=== PATIENT | male | born 1975 | race Caucasian/White ===

== ENCOUNTER 2017-09-23 06:35 | Inpatient (IN) ==
[2017-09-23] MEDS ORDERED: cefOXitin 2,000 MG in Water for inj. (sterile) 20 ML 10 ML IVP ONE (06:57)
--- NOTE | 2017-09-23 06:58 | Anesthesia Evaluation PreOp ---
Date of Encounter: 09/23/17 Time of Encounter: 07:08 - Past History Planned Operation: robo colon resection, a-port placement Cardiac History: HTN Pulmonary History: Denies Any Significant HX PLACER MINER History: Denies Any Significant HX Other Medical History: Other (psoriasis, colon cancer) Anesthesia History: No Prior Anesthetic Complications, Past Anesthesia (tonsils , c-scope, rcr x 3) Alcohol Use: occasionally Drug use: none Medications and Allergies Ferrous Sulfate [Iron] 325 mg PO DAILY 09/16/17 [History] Metoprolol Tartrate [Metoprolol Tartrate] 100 mg PO BID 09/16/17 [History] Polyethylene Glycol 3350 [MiraLAX bowel prep] 17 gm PO DAILY 09/16/17 [History] 3 Allergy/AdvReac Type Severity Reaction Status Date / Time No Known Allergies Allergy Verified 09/21/17 09:10 - Meds/Allergy Pre-op Review Medications Reviewed: Yes Allergies Reviewed: Yes Beta Blockers on Current Med List: Yes If Beta Blockers taken, Date/Time (Last Dose taken): 09-21-17 Anesthesia Results - Labs Laboratory Tests 08/16/17 09/21/17 09/21/17 10:40 09:40 09:40 Hgb 10.1 L Hct 36.5 L Plt Count 428 H Sodium 140 Potassium 4.2 BUN 8 Creatinine 0.87 - Imaging EKG: report reviewed (SINUS BRADYCARDIA MODERATE INTRAVENTRICULAR CONDUCTION DELAY VOLTAGE CRITERIA FOR LVH) Anesthesia Exam Selected Entries 09/23/17 06:54 Temperature 97.9 F Pulse Rate 76 Respiratory Rate 18 Blood Pressure 141/92 O2 Sat by Pulse Oximetry 98 Weight: 141kg BMI 41 NPO (# of Hours): 8 - HEENT Pupil (Motor): EOMI Mallampati: III Teeth: Normal Oral Opening: Greater than 3 - PLACER MINER LOC: Oriented PLACER MINER Motor: Normal RUE, Normal LUE, Normal RLE, Normal LLE, Normal Face PLACER MINER Sensory: Normal: RUE, LUE, RLE, LLE, Face - Cardiac Rhythm: Regular Murmur: None - Pulmonary Breath Sounds: bilateral Clear Respiratory Effort: Symmetrical Anesthesia Assess/Plan ASA Score: 3 Modified Lissa Scale for Level of Consciousness: Cooperative, oriented, and tranquil Anesthetic Plan: General Monitoring Plan: Standard Monitors Recovery Plan: PACU (agrees to GA)
[2017-09-23] MEDS ORDERED: Lidocaine 1% 20 ML MDV ONE (07:13)
[2017-09-23] MEDS ORDERED: Heparin 1,000 UNITS/500 mL 500 ML ONE (07:13)
[2017-09-23] MEDS ORDERED: Ondansetron 4 MG/2 ML VIAL ONE (07:24)
[2017-09-23] MEDS ORDERED: Lidocaine -MPF 2% 2 ML VIAL ONE (07:24)
[2017-09-23] MEDS ORDERED: *HR* Propofol 200 MG/20 ML VIAL IVP ONE ×2 (07:24→08:32)
[2017-09-23] MEDS ORDERED: *HR* Midazolam HCl 2 MG/2 ML VIAL ONE (07:24)
[2017-09-23] MEDS ORDERED: *HR* FentaNYL (PF) 100 MCG/2 ML VIAL ONE (07:24)
[2017-09-23] MEDS ORDERED: Ketorolac 30 MG/ML VIAL ONE (07:24)
[2017-09-23] MEDS ORDERED: Dexamethasone 4 MG/ML VIAL ONE (07:24)
[2017-09-23] MEDS ORDERED: *HR* Rocuronium Bromide 50 MG/5 ML VIAL ONE (07:24)
[2017-09-23] MEDS ORDERED: *HR* Succinylcholine 200 MG/10 ML VIAL IVP ONE (07:24)
--- NOTE | 2017-09-23 08:06 | History & Physical Report ---
Date of Encounter: 09/23/17 Time of Encounter: 08:05 24 Hour HP Update - Instructions Instructions: If the History and Physical is less than 30 days old and was completed prior to A.M. admission and or procedure and has NOT been updated on calendar day of procedure please complete this update prior to performing procedure. - Update Patient reports changes in Medical Condition: No Changes in examination, assessment, or condition: No Changes in Medication: No Preop tests/diagnostics Reviewed: Yes Surgery Remains Indicated: Yes Consent for Planned Operative Procedure(s) Verified: Yes - Pre-Operative Checklist Preoperative Checklist Indicated: Yes Prophylactic Antibiotic Ordered: Yes Home Medications Include Beta Melissa: Yes Beta Melissa Taken Today (Day of Surgery): Yes
[2017-09-23] MEDS ORDERED: Lidocaine -MPF 4% 5 ML AMPUL ONE (08:17)
[2017-09-23] MEDS ORDERED: Neostigmine Methylsulfate 3 MG/3 ML SYRINGE ONE (10:25)
[2017-09-23] MEDS ORDERED: *HR* Metoprolol 5 MG/5 ML VIAL IVP ONE (11:12)
[2017-09-23] MEDS ORDERED: *HR* Morphine 10 MG/ML VIAL ONE (11:26)
[2017-09-23] MEDS ORDERED: Naloxone 0.4 MG/ML INJ IVP PRN (11:31)
[2017-09-23] MEDS ORDERED: *HR* FentaNYL PATCH 50 MCG PATCH TD SCH (11:45)
[2017-09-23] MEDS: *HR* HYDROmorphone (PF) 1 MG/ML SYRINGE IVP SCH (12:07)
--- NOTE | 2017-09-23 12:30 | Anesthesia Evaluation Post Op ---
Date of Encounter: 09/23/17 Time of Encounter: 12:29 - Vital Signs Vital Signs: Vital Signs/O2 Sat, Most Current Temp Pulse Resp BP Pulse Ox 98.8 F 83 16 116/99 97 09/23/17 12:05 09/23/17 12:15 09/23/17 12:15 09/23/17 12:15 09/23/17 12:15 - Lungs Lungs: Clear Ascult./Percussion - Airway Airway: Non-obstructed - Cardiovascular Regular Rate - Mental Status Mental Status: Alert & Oriented, Answers Appropriately - Pain Pain Scale: 0 Pain Scale used: Numeric (1 - 10) - Nausea Vomiting Nausea Vomiting: Not Present - Hydration Hydration: Ice chips, Has not voided - Discharge PostOp Status: Transfer Patient to floor
[2017-09-23] MEDS: OXYCODONE Oral CONC 10 MG/0.5 ML ORAL.SYG SL PRN (13:51)
[2017-09-23] MEDS: Plasma-Lyte A (PH 7.4) 1,000 ML IVC SCH (17:35)
[2017-09-23] MEDS: Ketorolac 15 MG/ML VIAL IVP SCH ×2 (17:36)
[2017-09-23] MEDS: *HR* Heparin 5,000 UNIT/ML VIAL SQ SCH (17:37)
[2017-09-23] MEDS: 0.9 % Sodium Chloride 1,000 ML IVC SCH (17:37)
[2017-09-24] MEDS: Ketorolac 15 MG/ML VIAL IVP SCH ×4 (00:25→17:42)
[2017-09-24] MEDS: *HR* Heparin 5,000 UNIT/ML VIAL SQ SCH ×2 (06:56→17:43)
[2017-09-24] MEDS: 0.9 % Sodium Chloride 1,000 ML IVC SCH ×2 (06:56→17:44)
[2017-09-24 07:05] LABS: BUN/Creatinine Ratio 9 (6-26); Blood Urea Nitrogen 7 mg/dL (6-20); Calcium 9.2 mg/dL (8.6-10.3); Carbon Dioxide 26 mEq/L (23-29); Chloride 109 mEq/L (98-107); Glucose 122 mg/dL (70-105); Osmolality,Calculated 289 (280-300); Potassium 4.1 mEq/L (3.5-5.1); Sodium 140 mEq/L (136-145); eGFR For African Americans > 60 (> 60); eGFR For Non-African Americans > 60 (> 60)
[2017-09-24 07:46] LABS: Burr Cells 2+ (Not Present)
[2017-09-24 07:47] LABS: Anisocytosis 1+ (Not Present); Hypochromasia Present (Not Present); Poikilocytosis 2+ (Not Present)
[2017-09-24 07:48] LABS: Acanthocytes 1+ (Not Present); Ovalocytes 1+ (Not Present); Platelet Estimate Normal (Normal); Target Cells 1+ (Not Present)
[2017-09-24 07:54] LABS: Hematocrit 32.2 % (37.5-50.1); Hemoglobin 9.3 g/dL (12.9-16.9); Lymphocytes # 1.6 K/mcL (0.6-4.6); Mean Corpuscular HGB Conc 28.9 g/dL (31.6-35.5); Mean Corpuscular Hemoglobin 20.6 pg (28.0-33.3); Mean Corpuscular Volume 71.2 fL (83.0-100.0); Monocytes # 1.1 K/mcL (0.0-1.3); Neutrophils # 8.7 K/mcL (1.6-8.9); Red Blood Count 4.52 M/mcL (4.19-5.50); Red Cell Distribution Width 22.2 % (11.5-14.5)
[2017-09-24 07:55] LABS: Mean Platelet Volume 9.3 fL (9.4-12.4); Platelet Count 389 K/mcL (140-400)
[2017-09-24] MEDS ORDERED: *HR* FentaNYL PATCH 50 MCG PATCH TD SCH (09:00)
[2017-09-24] MEDS: *HR* HYDROmorphone (PF) 1 MG/ML SYRINGE IVP SCH (11:30)
[2017-09-24] MEDS: Plasma-Lyte A (PH 7.4) 1,000 ML IVC SCH (11:38)
--- NOTE | 2017-09-24 12:27 | General Surgery Progress Note ---
Date of Encounter: 09/24/17 Time of Encounter: 12:25 - Assessment and Plan (1) Metastatic colon cancer to liver Current Visit: No Status: Acute At this point the patient has a metastatic right colon cancer. He is status post resection. We will begin full liquids. He is to continue ambulating. Once he has flatus plan for discharge. Subjective Narrative: 6 this is a 42-year-old male with metastatic colon cancer. He underwent right colectomy for near obstructive symptoms on 09/23/2017. Today he is postop day # 1. States he has an appetite. He denies any flatus this point. However he denies any nausea. He reports he has been up ambulating 3 times already today. Objective Vital Signs - Last 8 Hours Temp Pulse Resp BP Pulse Ox 09/24/17 11:32 98.1 F 67 16 165/94 96 09/24/17 06:26 98.1 F 76 15 132/86 95 Intake and Output 09/23/17 09/24/17 09/24/17 23:59 07:59 15:59 Intake Total 620 / 620 560 / 560 500 / 500 Output Total 1750 / 1750 1750 / 1750 500 / 500 Balance -1130 / -1130 -1190 / -1190 0 / 0 Intake: Oral 620 / 620 560 / 560 500 / 500 Output: Urine 1750 / 1750 1750 / 1750 500 / 500 Other: # Voids 0 Weight 141 kg Patient Weight 09/24/17 23:59 Weight 141 kg - General physical appearance well developed, well nourished, no distress - Eyes PERRL - ENT normal pinna, normal nares - Abdomen Abdomen: Present: bowel sounds present, soft - Incision Incision: Present: clean and dry - Labs 09/24/17 06:34 09/24/17 06:34 Diabetes panel 09/24/17 Range/Units 06:34 Sodium 140 (136-145) mEq/L Potassium 4.1 (3.5-5.1) mEq/L Chloride 109 H (98-107) mEq/L Carbon Dioxide 26 (23-29) mEq/L BUN 7 (6-20) mg/dL Creatinine 0.75 (0.70-1.30) mg/dL Glucose 122 H (70-105) mg/dL Calcium 9.2 (8.6-10.3) mg/dL Calcium panel 09/24/17 Range/Units 06:34 Calcium 9.2 (8.6-10.3) mg/dL Pituitary panel 09/24/17 Range/Units 06:34 Sodium 140 (136-145) mEq/L Potassium 4.1 (3.5-5.1) mEq/L Chloride 109 H (98-107) mEq/L Carbon Dioxide 26 (23-29) mEq/L BUN 7 (6-20) mg/dL Creatinine 0.75 (0.70-1.30) mg/dL Glucose 122 H (70-105) mg/dL Calcium 9.2 (8.6-10.3) mg/dL Adrenal panel 09/24/17 Range/Units 06:34 Sodium 140 (136-145) mEq/L Potassium 4.1 (3.5-5.1) mEq/L Chloride 109 H (98-107) mEq/L Carbon Dioxide 26 (23-29) mEq/L BUN 7 (6-20) mg/dL Creatinine 0.75 (0.70-1.30) mg/dL Glucose 122 H (70-105) mg/dL Calcium 9.2 (8.6-10.3) mg/dL - VTE Documentation of Mechanical Device: Intermittent pneumatic compression device Consult Discharge Plan - Plan Referrals: Samson Ly DO [Partnered Physician] - 10/04/17 2:50 pm Meg Venegas, AUDREY [Primary Care Provider] -
[2017-09-24] MEDS: OXYCODONE Oral CONC 10 MG/0.5 ML ORAL.SYG SL PRN (21:07)
[2017-09-25] MEDS: Ketorolac 15 MG/ML VIAL IVP SCH ×4 (03:14→18:03)
[2017-09-25] MEDS: 0.9 % Sodium Chloride 1,000 ML IVC SCH (04:29)
[2017-09-25] MEDS: OXYCODONE Oral CONC 10 MG/0.5 ML ORAL.SYG SL PRN ×2 (04:36→22:01)
[2017-09-25] MEDS: *HR* Heparin 5,000 UNIT/ML VIAL SQ SCH ×2 (04:36→18:03)
[2017-09-25 08:30] LABS: BUN/Creatinine Ratio 10 (6-26); Blood Urea Nitrogen 7 mg/dL (6-20); Calcium 8.4 mg/dL (8.6-10.3); Carbon Dioxide 26 mEq/L (23-29); Chloride 107 mEq/L (98-107); Glucose 96 mg/dL (70-105); Osmolality,Calculated 286 (280-300); Potassium 3.5 mEq/L (3.5-5.1); Sodium 139 mEq/L (136-145); eGFR For African Americans > 60 (> 60); eGFR For Non-African Americans > 60 (> 60)
[2017-09-25 08:36] LABS: Basophils % 0.1 %; Red Cell Distribution Width 22.1 % (11.5-14.5)
[2017-09-25 08:38] LABS: Eosinophils # 0.1 K/mcL (0.0-0.6); Eosinophils % 1.7 %; Hematocrit 28.9 % (37.5-50.1); Immature Granulocytes % 0.4 % (0-4); Lymphocytes % 20.5 %; Mean Corpuscular HGB Conc 27.7 g/dL (31.6-35.5); Mean Corpuscular Volume 72.3 fL (83.0-100.0); Mean Platelet Volume 10.1 fL (9.4-12.4); Monocytes # 0.8 K/mcL (0.0-1.3); Monocytes % 9.7 %; Neutrophils # 5.4 K/mcL (1.6-8.9); Platelet Count 358 K/mcL (140-400); Segmented Neutrophils % 67.6 %
[2017-09-25 08:51] LABS: Lymphocytes # 1.6 K/mcL (0.6-4.6)
[2017-09-25 10:06] LABS: Anisocytosis 2+ (Not Present); Microcytosis Present (Not Present); Ovalocytes 1+ (Not Present)
[2017-09-25 10:07] LABS: Hypochromasia Present (Not Present); Platelet Estimate Normal (Normal)
[2017-09-25] MEDS: Plasma-Lyte A (PH 7.4) 1,000 ML IVC SCH (17:57)
[2017-09-25 18:55] VITALS: BP 131/72
--- NOTE | 2017-09-25 20:13 | Discharge Summary ---
Orders not resulted at time of discharge: Pending orders 09/23/17 XR fluoro guide [XR] Routine 09/23/17 11:12 Surgical Pathology [PTH] Routine 09/26/17 04:00 BMP [Basic Metabolic Panel] AM 0400 CBC [Complete Blood Count] [HEME] AM 0400 09/27/17 04:00 BMP [Basic Metabolic Panel] AM 0400 CBC [Complete Blood Count] [HEME] AM 0400 09/28/17 04:00 BMP [Basic Metabolic Panel] AM 0400 CBC [Complete Blood Count] [HEME] AM 0400 09/29/17 04:00 BMP [Basic Metabolic Panel] AM 0400 CBC [Complete Blood Count] [HEME] AM 0400 Date of Encounter: 09/25/17 Time of Encounter: 20:12 - Discharge Diagnosis (1) Metastatic colon cancer to liver Priority: Primary Status: Acute Comments: Follow up 10/04 in my office. Start stool softners today. General Surgery Exam Initial Vital Signs Temp Pulse Resp BP Pulse Ox 97.9 F 76 18 141/92 98 09/23/17 06:54 09/23/17 06:54 09/23/17 06:54 09/23/17 06:54 09/23/17 06:54 - Eyes PERRL - Neck trachea midline - Respiratory normal respiratory effort - Cardiovascular Cardiovascular exam: Present: RRR - Abdomen Abdomen general surgery: Present: bowel sounds present, soft - Incision Incision: Present: clean and dry - Neurologic Present: CN 2-12 grossly intact, normal coordination - Musculoskeletal Present: normal gait, normal posture - Hospital Course Hospital course: Mr. Maria is a 42 year old male - Time Spent with Patient Total time spent providing and/or coordinating discharge services: - Discharge Medications Home Medications: Ferrous Sulfate [Iron] 325 mg PO DAILY 09/16/17 [History] Metoprolol Tartrate [Metoprolol Tartrate] 100 mg PO BID 09/16/17 [History] Polyethylene Glycol 3350 [MiraLAX bowel prep] 17 gm PO DAILY 09/16/17 [History] Allergies/Adverse Reactions: 3 Allergy/AdvReac Type Severity Reaction Status Date / Time No Known Allergies Allergy Verified 09/23/17 07:23 Date of admission: 09/23/17 13:18 Primary care physician: Meg Venegas CNP Discharging clinician: Samson Ly Anticipated date of discharge: 09/25/17 Labs on day of discharge: Labs from last 24 hours 09/25/17 09/25/17 07:08 07:08 WBC 8.0 RBC 4.00 L Hgb 8.0 L Hct 28.9 L MCV 72.3 L MCH 20.0 L MCHC 27.7 L RDW 22.1 H Plt Count 358 MPV 10.1 Immature Gran % 0.4 Seg Neutrophils % 67.6 Lymphocytes % 20.5 Monocytes % 9.7 Eosinophils % 1.7 Basophils % 0.1 Neutrophils # 5.4 Lymphocytes # 1.6 Monocytes # 0.8 Eosinophils # 0.1 Basophils # 0.0 Platelet Estimate Normal Hypochromasia Present A Anisocytosis 2+ A Microcytosis Present A Ovalocytes 1+ A Sodium 139 Potassium 3.5 Chloride 107 Carbon Dioxide 26 BUN 7 Creatinine 0.72 Est GFR ( Amer) > 60 Est GFR (Non-Af Amer) > 60 BUN/Creatinine Ratio 10 Glucose 96 Calculated Osmolality 286 Calcium 8.4 L - Impressions ITS Impressions Chest X-Ray 09/23/17 00:00 IMPRESSION: Left subclavian Port-A-Cath tip overlies the confluence of the innominate veins. D/ / Flavio Macdonald MD / Flavio Macdonald MD Interpreting Provider: Flavio Macdonald MD - Patient Status Disposition: Home, Self-Care Condition: Good Functional capacity at discharge: independent ambulation Overall status at discharge: patient is progressing back to baseline - Discharge Instructions Follow Up With: Samson Ly DO [Partnered Physician] - 10/04/17 2:50 pm Meg Venegas, CNC LASER OPERATOR [Primary Care Provider] -
--- NOTE | 2017-09-26 07:58 | Operative Note ---
Date of procedure: 09/23/17 Pre-op diagnosis: Right colon cancer Post-op diagnosis: same Procedure: Robotic Right colectomy; liver biopsy and Aport placement Anesthesia: GETA Surgeon: Samson Ly Was there an temporary administrative assistant present: Yes [employer]ch[employer] Purchasing Agent: Karina Dugan Estimated blood loss (cc): 50 Specimen: Right colon and liver biopsy Condition: stable Disposition: floor Procedure in Detail: After informed consent, the patient was taken the operating room placed in the supine position. After adequate sedation and anesthesia the abdomen was prepped and draped. [address] the umbilicus and a Verres needle was inserted into the abdomen. A pneumoperitoneum was created. 3 individual 8 mm cannulas were placed along with a 13 mm cannula. Once in place the [employer] XI robot was brought over the patient's right hip and positioned. The ports were connected the robot. Attention was replaced. Small bowel was swept to the left lateral position. The cecum and ileum were grasped and the vascular pedicle was identified. A window was created. The duodenum was readily identified and kept out of harm's way. The vascular pedicle was taken with a vessel sealer. The remainder of the colon was dissected free from the retroperitoneum. Once the transverse mesocolon had been divided to the level of the transverse colon it was stapled with a robotic stapler. The same was performed for the terminal ileum. Once that was completed the remainder of the lateral attachments were taken down with a vessel sealer. Colon was parked over the patient's right abdomen. The terminal ileum was then placed next to the transverse colon. 2 enterotomies were created and the colon and the small bowel and a 45 mm stapler was fired down both limbs. The common enterotomy was closed with 2-0 silk suture 2. There were several small white plaques located on the liver surface. The most anterior nodule was removed with scissors and sent for pathology review. Once completed the ports were removed and the pneumoperitoneum was evacuated. A small midline incision was made and the specimen was retrieved through a wound protection bag. Once finished the midline was closed with a looped PDS suture and the 13 mm cannula was closed with a 0 Vicryl. Lissy were placed in the skin. The left chest wall was prepped and draped. A 16 gauge needle was placed in the left subclavian vein. A guidewire was placed in SVC. A dilator and sheath was placed. The dilator was removed. A 17 cm catheter was placed in the sheath and the sheath was torn away. The reservoir was placed in the subcutaneous skin. There was easy flash and flush. The skin was closed with 3-0 vicryl suture and dermabond. CXR confirmed placement.
== END 2017-09-25 22:21 | disposition home or self-care (01) | DRG 330 ==
LOC: SAMDAY 06:35 → 3ANU 13:18
PROVIDERS: ADMIT Surgery; ATTEND Surgery

== ENCOUNTER 2017-09-28 20:34 | Inpatient (IN) ==
[2017-09-28] MEDS ORDERED: *HR* OxyCODONE/APAP 10/325 TABLET PO ONE (22:44)
--- NOTE | 2017-09-28 23:09 | Emergency Department Note ---
Disposition Clinical Impression: Alteration in bowel elimination due to postoperative ileus Abdominal pain Qualifiers: Abdominal location: generalized Qualified Code(s): R10.84 - Generalized abdominal pain Disposition: Admitted As Inpatient Condition: Good Referrals: Meg Venegas CNP [Primary Care Provider] - Forms: ED Satisfaction Letter, Work/School Release Time of Disposition: 01:05 Abdominal Pain HPI - General Chief Complaint: ED Abdominal Pain Stated Complaint: rt side pain had colon removed tuesday Time Seen by Provider: 09/28/17 22:26 Source: patient, family Nursing Notes Reviewed: Yes Vital Signs Reviewed: Yes - History of Present Illness HPI Narrative: Right-sided abdominal pain prior to arrival in the emergency department. Denies any nausea vomiting. No radiation of the pain. Complains that it felt like a cramp to the right side of his abdomen. He reports small amount of expected blood in his stool after surgery. Pain Scale: 10 - Related Data Home Medications Medication Instructions Recorded Confirmed Ferrous Sulfate [Iron] 325 mg PO DAILY 09/16/17 09/23/17 Metoprolol Tartrate [Metoprolol 100 mg PO BID 09/16/17 09/23/17 Tartrate] Polyethylene Glycol 3350 [MiraLAX 17 gm PO DAILY 09/16/17 09/23/17 bowel prep] Allergies Allergy/AdvReac Type Severity Reaction Status Date / Time No Known Allergies Allergy Verified 09/28/17 20:35 All systems ED: reviewed and negative except as stated. Constitutional: Denies: fever, chills Cardiovascular: Denies: chest pain, edema, syncope Respiratory: Denies: cough, dyspnea, wheezes Gastrointestinal: Denies: abdominal pain (Did have abdominal pain prior to arrival here. None of this time.), nausea, vomiting, diarrhea Genitourinary: Denies: urgency, dysuria, frequency Musculoskeletal: Denies: back pain, neck pain Integumentary: Denies: rash Abdominal Pain PMH - Past Medical History Medical history: Reports: hypertension Male Surgical History: Reports: other Psychiatric history: Reports: no psych history - Social History Smoking status: Never smoker Alcohol use: Reports: occasionally Drug use: Reports: none Physical Exam - General Limitations: no limitations General appearance: alert, in no apparent distress - Head Head exam: atraumatic, normocephalic, normal inspection - Eye Eye exam: Present: normal appearance, PERRL, EOMI. Absent: scleral icterus - ENT ENT exam: normal exam, normal oropharynx, mucous membranes moist - Neck Neck exam: Present: normal inspection, full ROM, trachea midline. Absent: tenderness - Chest Chest inspection: Present: normal inspection, symmetric chest wall rise. Absent : tenderness - Respiratory Respiratory exam: Present: normal lung sounds bilaterally. Absent: respiratory distress - Cardiovascular Cardiovascular exam: Present: regular rate, irregular rhythm - Abdominal Exam Abdominal exam: Present: soft, Non-Tender, normal bowel sounds, other (Midline incision nonerythematous non-weeping not warm. 2 small incisions to the left upper quadrant also secured with irish nonerythematous not weeping not warm). Absent: distention, guarding, rebound, rigidity - Extremities Exam Extremities exam: Present: normal inspection, full ROM. Absent: tenderness, pedal edema Course Course Narrative: Male patient presenting to the emergency department complaining of right-sided abdominal pain. Patient states that he had a partial colectomy on Tuesday for bowel cancer. States that he has not been taking his pain medication as prescribed as he was afraid that he might need it later. He states that he had been out with his today in a car and walking whenever he noticed that he started getting more pain in his abdomen. He states that he took 2 Percocet prior to coming to the emergency department. On my exam patient states that he is not having any abdominal pain at this time. Alert and oriented 3 with no distress. His lung sounds are clear. His heart tones are normal. His abdomen is soft nontender on palpation. He does have a midline scar that is secured with irish. This has no signs of erythema and is not warm to touch. He also has 2 more incisions to the left upper quadrant. These are also secured with irihs and have no signs of infection. He has no signs of edema to his extremities. We will get a basic lab workup on patient and scanned patient's abdomen. He states he does have follow-up with Dr. Ibrahim this coming Week. - Reevaluation(s) Reevaluation #1: Patient developed tachycardia while he was here. This was not responsive to a [address] scan showed free air in abdomen which is consistent with his previous surgery. However he also has an ileus. He does report decreased by mouth intake. The patient for his ileus as well as tachycardia. Time: 01:03 - Consultations Consultation #1: [facility] accepted Pt in stable condition. Time: 01:06 Vital Signs Temperature 97.7 F 09/28/17 20:35 Pulse Rate 101 09/28/17 20:35 Respiratory Rate 18 09/28/17 20:35 Blood Pressure 130/81 09/28/17 20:35 O2 Sat by Pulse Oximetry 96 09/28/17 20:35 Temperature 97.7 F 09/28/17 20:35 Pulse Rate 122 09/29/17 00:49 Respiratory Rate 20 09/29/17 00:49 Blood Pressure 180/132 09/29/17 00:49 O2 Sat by Pulse Oximetry 97 09/29/17 00:49 Oxygen Delivery Oxygen Delivery Room Air Abdominal Pain - Lab Data Result diagrams: 09/28/17 22:59 09/28/17 22:59 Lab Results 09/28/17 09/28/17 09/28/17 Range/Units 22:59 22:59 23:16 WBC 8.0 (4.3-11.1) K/mcL RBC 4.61 (4.19-5.50) M/mcL Hgb 9.5 L D (12.9-16.9) g/dL Hct 32.1 L (37.5-50.1) % MCV 69.6 L (83.0-100.0) fL MCH 20.6 L (28.0-33.3) pg MCHC 29.6 L (31.6-35.5) g/dL RDW 21.3 H (11.5-14.5) % Plt Count 371 (140-400) K/mcL MPV 9.3 L (9.4-12.4) fL Immature Gran % 0.3 (0-4) % Seg Neutrophils % 84.2 % Lymphocytes % 6.3 % Monocytes % 9.1 % Eosinophils % 0.0 % Basophils % 0.1 % Neutrophils # 6.7 (1.6-8.9) K/mcL Lymphocytes # 0.5 L (0.6-4.6) K/mcL Monocytes # 0.7 (0.0-1.3) K/mcL Eosinophils # 0.0 (0.0-0.6) K/mcL Basophils # 0.0 (0.0-0.2) K/mcL Microcytosis Present A (Not Present) Sodium 134 L (136-145) mEq/L Potassium 3.9 (3.5-5.1) mEq/L Chloride 98 (98-107) mEq/L Carbon Dioxide 26 (23-29) mEq/L BUN 12 (6-20) mg/dL Creatinine 0.71 (0.70-1.30) mg/dL Est GFR ( Amer) > 60 (> 60) Est GFR (Non-Af Amer) > 60 (> 60) BUN/Creatinine Ratio 17 (6-26) Glucose 116 H (70-105) mg/dL Calculated Osmolality 279 L (280-300) Calcium 9.4 (8.6-10.3) mg/dL Total Bilirubin 1.3 H (0.3-1.0) mg/dL Direct Bilirubin 0.3 H (0.0-0.2) mg/dL Indirect Bilirubin 1.0 (0.0-1.2) mg/dL AST 17 (13-39) Units/L ALT 25 (7-52) Units/L Alkaline Phosphatase 78 (34-104) Units/L Serum Total Protein 7.1 (6.4-8.9) g/dL Albumin 4.0 (3.5-5.7) g/dL Globulin 3.1 (2.4-3.5) g/dL Albumin/Globulin Ratio 1.3 (1.1-2.2) Amylase 12 L (29-103) Units/L Lipase 5 L (11-82) Units/L Urine Color Dark Yellow (Yellow) Urine Clarity Clear (Clear) Urine pH 6.5 (5.0-8.0) pH Units Ur Specific [place] 1.024 (1.010-1.025) Urine Protein Trace (Neg-Trace) mg/dL Urine Glucose (UA) Normal (Normal) mg/dL Urine Ketones 40 H (Negative) mg/dL Urine Blood Negative (Negative) Urine Nitrite Negative (Negative) Urine Bilirubin Small H (Negative) Urine Urobilinogen 2.0 H (Normal) mg/dL Ur Leukocyte Esterase Negative (Negative) Urine Microscopic RBC 0-3 (0-3) per hpf Urine Microscopic WBC 3-5 H (0-3) per hpf Ur Squamous Epith Cells Many H (None-Few) per lpf Urine Bacteria None Seen (None-Few) per hpf Hyaline Casts None Seen (None-Few) per lpf Ur Culture Indicated? NO (NO)
[2017-09-28 23:32] LABS: Bilirubin,Urine Small (Negative); Blood,Urine Negative (Negative); Clarity,Urine Clear (Clear); Color,Urine Dark Yellow (Yellow); Glucose,Urine (UA) Normal (Normal); Ketones,Urine 40 mg/dL (Negative); Leukocyte Esterase,Urine Negative (Negative); Nitrite,Urine Negative (Negative); PH,Urine 6.5 pH Units (5.0-8.0); Protein,Urine Trace mg/dL (Neg-Trace); Specific Gravity,Urine 1.024 (1.010-1.025)
[2017-09-28 23:35] LABS: Bacteria,Urine None Seen per hpf (None-Few); Hyaline Casts,Urine None Seen per lpf (None-Few); RBC,Urine 0-3 per hpf (0-3); Squamous Epithelial Cell,Urine Many per lpf (None-Few)
[2017-09-28 23:36] LABS: Immature Granulocytes % 0.3 % (0-4); Red Cell Distribution Width 21.3 % (11.5-14.5)
[2017-09-28 23:37] LABS: Basophils % 0.1 %; Hematocrit 32.1 % (37.5-50.1); Hemoglobin 9.5 g/dL (12.9-16.9); Lymphocytes # 0.5 K/mcL (0.6-4.6); Lymphocytes % 6.3 %; Mean Corpuscular HGB Conc 29.6 g/dL (31.6-35.5); Mean Corpuscular Hemoglobin 20.6 pg (28.0-33.3); Mean Corpuscular Volume 69.6 fL (83.0-100.0); Mean Platelet Volume 9.3 fL (9.4-12.4); Monocytes # 0.7 K/mcL (0.0-1.3); Monocytes % 9.1 %; Neutrophils # 6.7 K/mcL (1.6-8.9); Platelet Count 371 K/mcL (140-400); Red Blood Count 4.61 M/mcL (4.19-5.50); Segmented Neutrophils % 84.2 %
[2017-09-28 23:42] LABS: Microcytosis Present (Not Present)
[2017-09-28 23:52] LABS: Alanine Aminotransferase 25 Units/L (7-52); Albumin/Globulin Ratio 1.3 (1.1-2.2); Alkaline Phosphatase 78 Units/L (34-104); Amylase 12 Units/L (29-103); Aspartate Amino Transferase 17 Units/L (13-39); BUN/Creatinine Ratio 17 (6-26); Bilirubin,Direct 0.3 mg/dL (0.0-0.2); Bilirubin,Total 1.3 mg/dL (0.3-1.0); Blood Urea Nitrogen 12 mg/dL (6-20); Calcium 9.4 mg/dL (8.6-10.3); Carbon Dioxide 26 mEq/L (23-29); Chloride 98 mEq/L (98-107); Globulin 3.1 g/dL (2.4-3.5); Glucose 116 mg/dL (70-105); Lipase 5 Units/L (11-82); Osmolality,Calculated 279 (280-300); Potassium 3.9 mEq/L (3.5-5.1); Sodium 134 mEq/L (136-145); Total Protein 7.1 g/dL (6.4-8.9); eGFR For African Americans > 60 (> 60); eGFR For Non-African Americans > 60 (> 60)
[2017-09-29] MEDS ORDERED: 0.9 % Sodium Chloride 1,000 ML IVC ONE (00:19)
--- NOTE | 2017-09-29 01:04 | Emergency Department Note ---
START Narrative - START START: I examined this patient and my medical decision-making was reviewed with the Resident Physician. I agree with the documented findings, disposition and treatment plan as described except to the extent set forth below. Findings consistent with ileus, dehydration, tachycardia. We will proceed with admission for serial, examination's, bowel regimen, IV hydration.
--- NOTE | 2017-09-29 01:22 | Internal Med History&Physical ---
Date of Encounter: 09/29/17 Time of Encounter: 01:19 Assessment and Plan (1) Obesity Current visit: Yes Status: Chronic Qualifiers: Obesity type: due to excess calories Obesity classification: unspecified obesity classification Serious obesity comorbidity presence: unspecified whether serious comorbidity present Qualified Code(s): E66.09 - Other obesity due to excess calories (2) Hypertension Current visit: Yes Status: Chronic Chronic resume home medication Qualifiers: Hypertension type: essential hypertension Qualified Code(s): I10 - Essential (primary) hypertension (3) Abdominal pain Current visit: Yes Status: Acute Postop abdominal pain CT shows ileus Qualifiers: Abdominal location: generalized Qualified Code(s): R10.84 - Generalized abdominal pain (4) Alteration in bowel elimination due to postoperative ileus Current visit: Yes Status: Acute Postop ileus adenosine the has been consulted for follow-up no nausea vomiting (5) Metastatic colon cancer to liver Current visit: No Status: Acute Started post right colectomy Internal Medicine - H&P: HPI Chief complaint: abd pain Admitted From: Emergency Dept Plans for Post Hospital Care: Home History of present illness: Mr. Maria is a 42 year old male Patient with history of obesity, hypertension, recent diagnosis of colon cancer and underwent right colectomy on Tuesday by Dr. Ibrahim. Patient was discharged home on some Percocet patient did not take his Percocet yesterday apparently went out with the and developed more abdominal pain and came into the emergency room , on his way to the emergency room took two Percocet at the time he arrived the pain has subsided CT of the abdomen shows ileus no major acute process patient has sinus tachycardia blood pressures high and will be admitted for observation DR Ly has been contacted and consulted from the emergency room. Denies any nausea vomiting Past Med Surg Social Fam HX - Past Medical History Medical history: hypertension Psychiatric history: no psych history - Past Surgical History Surgical History: orthopedic, other - Social History Smoking Status: Never smoker Smokeless Tobacco Status: No Alcohol use: occasionally Drug use: none Internal Medicine - H&P: Meds Ferrous Sulfate [Iron] 325 mg PO DAILY 09/16/17 [History] Metoprolol Tartrate [Metoprolol Tartrate] 100 mg PO BID 09/16/17 [History] Polyethylene Glycol 3350 [MiraLAX bowel prep] 17 gm PO DAILY 09/16/17 [History] 3 Allergy/AdvReac Type Severity Reaction Status Date / Time No Known Allergies Allergy Verified 09/28/17 20:35 All Systems PM: A 10-system review of systems was performed and is negative for pertinent findings except as documented above in the HPI. - Constitutional Constitutional: no chills, no fever(s), no night sweats - EENT Eyes: no change in vision, no discharge, no pain, no photophobia Ears: no ear discharge, no ear pain, no tinnitus Nose, mouth and throat: no dysphagia, no nasal discharge, no neck pain, no sore throat - Cardiovascular Cardiovascular ROS IM: no chest pain, no diaphoresis, no dyspnea, no lightheadedness, no palpitations, no syncope - Respiratory Respiratory: no cough, no dyspnea, no wheezing, no excessive phlegm production - Gastrointestinal Gastrointestinal: abdominal pain - Musculoskeletal Musculoskeletal ROS IM: no numbness, no tingling - Constitutional Vitals: Temp Pulse Resp BP Pulse Ox 97.7 F 122 20 180/132 97 09/28/17 20:35 09/29/17 00:49 09/29/17 00:49 09/29/17 00:49 09/29/17 00:49 - Eye Eye exam: Present: PERRL, conjuntiva pink, sclera anicteric Pupils: Present: PERRL - Neck Neck exam general surgery: Present: supple, trachea midline. Absent: lymphadenopathy - Respiratory Respiratory exam: Present: CTAB. Absent: accessory muscle use, rales, rhonchi, wheezes - Cardiovascular Cardiovascular exam: Present: RRR, +S1, +S2. Absent: diastolic murmur, gallop, rubs, systolic murmur - GI/Abdominal GI/Abdominal exam: Present: diminished bowel sounds, tenderness - Extremities Exam Extremities exam: Present: warm, radial pulses palpable and symmetrical. Absent : calf tenderness, cyanotic, pedal edema Internal Med - H&P Results - Labs CBC & Chem 7: 09/28/17 22:59 09/28/17 22:59 Labs: Short CBC 09/28/17 Range/Units 22:59 WBC 8.0 (4.3-11.1) K/mcL Hgb 9.5 L D (12.9-16.9) g/dL Hct 32.1 L (37.5-50.1) % Plt Count 371 (140-400) K/mcL Neutrophils # 6.7 (1.6-8.9) K/mcL BMP 09/28/17 22:59 Sodium 134 L Potassium 3.9 Chloride 98 Carbon Dioxide 26 BUN 12 Creatinine 0.71 Glucose 116 H Calcium 9.4 Liver Function 09/28/17 Range/Units 22:59 Total Bilirubin 1.3 H (0.3-1.0) mg/dL Direct Bilirubin 0.3 H (0.0-0.2) mg/dL AST 17 (13-39) Units/L ALT 25 (7-52) Units/L Alkaline Phosphatase 78 (34-104) Units/L Albumin 4.0 (3.5-5.7) g/dL Urine 09/28/17 Range/Units 23:16 Urine Color Dark Yellow (Yellow) Urine Clarity Clear (Clear) Urine pH 6.5 (5.0-8.0) pH Units Ur Specific [place] 1.024 (1.010-1.025) Urine Protein Trace (Neg-Trace) mg/dL Urine Glucose (UA) Normal (Normal) mg/dL - Impressions ITS Impressions Abdomen/Pelvis CT 09/29/17 22:43 IMPRESSION: Postoperative changes of right colectomy with ileal colic anastomosis in the right lower quadrant. Small volume of pneumoperitoneum, free fluid, and mesenteric edema could be related to recent surgery. Mild diffuse distention of the small bowel without transition point noted. Findings are favored to be related to ileus. Gas within the left body wall and scrotum are likely related to recent surgery as well. Multiple hypodense hepatic lesions, concerning for metastatic disease. Bibasilar atelectasis. Findings were discussed with Dr. Henrik Liz at 12:55 am on 09/29/2017. D/ / Flavio Horowitz MD / Flavio Horowitz MD Interpreting Provider: Flavio Horowitz MD
[2017-09-29] MEDS ORDERED: Metoprolol 100 MG TABLET PO ONE (01:23)
[2017-09-29] MEDS ORDERED: traMADol 50 MG TABLET PO PRN (01:26)
[2017-09-29] MEDS ORDERED: Naloxone 0.4 MG/ML INJ IVP PRN (01:26)
[2017-09-29] MEDS ORDERED: Acetaminophen 325 MG TABLET PO PRN (01:26)
[2017-09-29] MEDS ORDERED: *HR* OxyCODONE/APAP 10/325 TABLET PO PRN (01:27)
[2017-09-29] MEDS ORDERED: *HR* Propofol 200 MG/20 ML VIAL IVP ONE ×3 (07:14→09:19)
[2017-09-29] MEDS ORDERED: *HR* Midazolam HCl 2 MG/2 ML VIAL ONE (07:14)
[2017-09-29] MEDS ORDERED: *HR* FentaNYL (PF) 100 MCG/2 ML VIAL ONE ×2 (07:14→09:19)
--- NOTE | 2017-09-29 07:14 | Anesthesia Evaluation PreOp ---
Date of Encounter: 09/29/17 Time of Encounter: 07:12 - Past History Planned Operation: Exploratory Laparotomy Cardiac History: HTN Other Medical History: Other (psoriasis, colon CA) Anesthesia History: Past Anesthesia (robotic Colon Resection a-port, 09/23/17, tonsils, RCR x 3, colonoscopy) Alcohol Use: occasionally Drug use: none Medications and Allergies Ferrous Sulfate [Iron] 325 mg PO DAILY 09/16/17 [History] Metoprolol Tartrate [Metoprolol Tartrate] 100 mg PO BID 09/16/17 [History] Polyethylene Glycol 3350 [MiraLAX bowel prep] 17 gm PO DAILY 09/16/17 [History] 3 Allergy/AdvReac Type Severity Reaction Status Date / Time No Known Allergies Allergy Verified 09/28/17 20:35 - Meds/Allergy Pre-op Review Medications Reviewed: Yes Allergies Reviewed: Yes Beta Blockers on Current Med List: Yes If Beta Blockers taken, Date/Time (Last Dose taken): 07:01 09/29/2017 Anesthesia Results - Labs 09/28/17 22:59 09/28/17 22:59 - Imaging EKG: report reviewed (SINUS BRADYCARDIA MODERATE INTRAVENTRICULAR CONDUCTION DELAY VOLTAGE CRITERIA FOR LVH) Anesthesia Exam Vital Signs/O2 Sat, Most Current Temp Pulse Resp BP Pulse Ox 99.5 F 111 16 156/98 95 09/29/17 06:45 09/29/17 06:45 09/29/17 06:45 09/29/17 06:45 09/29/17 06:45 - HEENT Pupil (Motor): Pupils equal, EOMI Mallampati: III Teeth: Normal Oral Opening: Greater than 3 - CLOTH TEARER LOC: Oriented CLOTH TEARER Motor: Normal RUE, Normal LUE, Normal RLE, Normal LLE, Normal Face CLOTH TEARER Sensory: Normal: RUE, LUE, RLE, LLE, Face - Cardiac Rhythm: Regular Murmur: None JVD: No Carotid Bruit: No - Pulmonary Breath Sounds: bilateral Clear Respiratory Effort: Symmetrical Anesthesia Assess/Plan ASA Score: 3 Modified [place] Scale for Level of Consciousness: Cooperative, oriented, and tranquil Anesthetic Plan: General Autologous Blood: Yes Monitoring Plan: Standard Monitors Recovery Plan: PACU
[2017-09-29] MEDS ORDERED: Lidocaine -MPF 2% 2 ML VIAL ONE (07:16)
[2017-09-29] MEDS ORDERED: *HR* Rocuronium Bromide 50 MG/5 ML VIAL ONE (07:16)
[2017-09-29] MEDS ORDERED: *HR* Succinylcholine 200 MG/10 ML VIAL IVP ONE (07:16)
[2017-09-29] MEDS ORDERED: Famotidine 20 MG/2 ML VIAL ONE (07:34)
[2017-09-29] MEDS ORDERED: *HR* PHENYLEPHRINE 1,000 MCG/10 ML SYRINGE IVP ONE (08:06)
[2017-09-29] MEDS ORDERED: cefOXitin 1,000 MG in Water for inj. (sterile) 20 ML 10 ML IVP ONE (08:14)
[2017-09-29] MEDS ORDERED: cefOXitin 2,000 MG in Water for inj. (sterile) 20 ML 10 ML IVP ONE (08:14)
[2017-09-29] MEDS ORDERED: Ondansetron 4 MG/2 ML VIAL ONE (08:21)
[2017-09-29] MEDS ORDERED: Neostigmine Methylsulfate 3 MG/3 ML SYRINGE ONE (08:21)
[2017-09-29] MEDS ORDERED: Dexamethasone 4 MG/ML VIAL ONE (08:21)
[2017-09-29] MEDS ORDERED: CefOXitin 2,000 MG VIAL ONE (08:28)
[2017-09-29] MEDS ORDERED: ceFAZolin 3,000 MG in Water for inj. (sterile) 30 ML IVP ONE (08:30)
[2017-09-29] MEDS ORDERED: Ondansetron 4 MG/2 ML VIAL IVP ONE (08:41)
[2017-09-29] MEDS ORDERED: Acetaminophen IV 1,000 MG/100 ML INFUS..BTL IVPB ONE (08:41)
[2017-09-29] MEDS ORDERED: *HR* Labetalol 20 MG/4 ML SYRINGE IVP PRN (08:41)
[2017-09-29] MEDS ORDERED: *HR* HYDROmorphone (PF) 1 MG/ML SYRINGE IVP PRN (08:41)
[2017-09-29] MEDS ORDERED: MORPHINE SUL Oral CONC 10 MG/0.5 ML ORAL.SYG SL PRN (08:41)
[2017-09-29] MEDS ORDERED: *HR* Promethazine 25 MG/ML VIAL IVP PRN (08:41)
[2017-09-29] MEDS ORDERED: Metoprolol 100 MG TABLET PO SCH (09:00)
[2017-09-29] MEDS ORDERED: Lidocaine -MPF 1% 5 ML AMPUL INFILT ONE (10:29)
[2017-09-29] MEDS ORDERED: Morphine Oral CONC 5 MG/0.25 ML ORAL.SYG PO PRN (10:34)
[2017-09-29] MEDS ORDERED: OXYCODONE Oral CONC 10 MG/0.5 ML ORAL.SYG SL PRN (10:34)
[2017-09-29] MEDS ORDERED: Ondansetron 4 MG/2 ML VIAL IVP PRN (10:41)
--- NOTE | 2017-09-29 10:48 | Anesthesia Evaluation Post Op ---
Date of Encounter: 09/29/17 Time of Encounter: 10:47 - Vital Signs Vital Signs: Vital Signs/O2 Sat, Most Current Temp Pulse Resp BP Pulse Ox 98.0 F 118 20 145/83 95 09/29/17 10:05 09/29/17 10:15 09/29/17 10:15 09/29/17 10:15 09/29/17 10:15 - Lungs Lungs: Clear Ascult./Percussion - Airway Airway: Non-obstructed - Cardiovascular Regular Rate - Mental Status Mental Status: Alert & Oriented, Answers Appropriately - Pain Pain Scale: 0 Pain Scale used: Numeric (1 - 10) - Nausea Vomiting Nausea Vomiting: Not Present - Hydration Hydration: Tolerates oral liquids, Has not voided - Discharge PostOp Status: Transfer Patient to floor
[2017-09-29] MEDS ORDERED: D10% in Water 500 ML IVC PRN (11:01)
--- NOTE | 2017-09-29 14:09 | General Surgery Consult Note ---
Date of Encounter: 09/29/17 Time of Encounter: 11:30 Assessment and Plan (1) Anastomotic leak of intestine Current Visit: Yes Status: Acute Patient taken to the Operating room urgently with Dr. Ly this morning for exploratory laparotomy and revision of colonic anastomosis Pathology pending NPO while awaiting return of bowel function IV fluids Place PICC line today- team notified Start TPN- dietitian consult and for start and management (total fluid rate 100ml/hour MIV + TPN) Supportive care and pain control Incentive spirometer every 1 hour while awake GI prophylaxis Out of bed to chair and ambulate hallways 3 times a day with assistance A.m. labs- CBC, BMP, Mg, Phos, Prealbumin Surgery to take over primary care of patient- MOLD SANDER notified on hospitalist service (2) Metastatic colon cancer to liver Current Visit: No Status: Acute Postoperative day #6 from a Robotic Right colectomy; liver biopsy and Aport placement with Dr. Ly Oncology following (3) Hypertension Current Visit: Yes Status: Chronic Metoprolol IV every 6 hours HERNESTO We will continue to monitor and treat as necessary Qualifiers: Hypertension type: essential hypertension Qualified Code(s): I10 - Essential (primary) hypertension (4) Obesity Current Visit: Yes Status: Chronic Qualifiers: Obesity type: due to excess calories Obesity classification: unspecified obesity classification Serious obesity comorbidity presence: unspecified whether serious comorbidity present Qualified Code(s): E66.09 - Other obesity due to excess calories (5) DVT prophylaxis Current Visit: Yes Status: Acute Start heparin 5000 units subcutaneous twice daily EPCDs to bilateral lower extremities for DVT prophylaxis Out of bed to chair and ambulating hallways 3 times a day with assistance History of Present Illness Consult date: 09/28/17 Reason for consult: other (Abnormal CT of abdomen s/p colon resection) Requesting physician: Vitaliy Lyons History of present illness: Mr. Maria is a 42 year old male with a past medical history significant for colon cancer. He is recently s/p Robotic Right colectomy; liver biopsy and Aport placement with Dr. Ly on 09/23/17. He was discharged to home on 09/25/17. He reports generalized increasing abdominal pain over the past 24 hours and he reported to the ED for evaluation. He was tachycardic with a heart rate in the 110's to 120's. He had a CT scan complete which showed concerns for free air and anastomotic leak. We have been asked to see and evaluate the patient for evaluation and treatment. Past Med Surg Social Fam HX - Past Medical History Source: patient, old records reviewed Medical history: hypertension, other (DDD, Psoriasis) Psychiatric history: no psych history - Past Surgical History Surgical History: colectomy (Right colon resection, liver biopsy on 09/23/17), orthopedic, other (Rotator cuff repair 3 on the right), other (Tonsillectomy, A -port placement 09/23/17) - Social History Smoking Status: Never smoker Smokeless Tobacco Status: No Alcohol use: occasionally Drug use: none Occupational status: employed Current living situation: Home - Independent Activity Level: Independent ambulation - Family History Father Living Status: Still Living Hx Family Cardiac Disorders: Yes Mother Living Status: Still Living Hx Family Cardiac Disorders: Yes (HTN) Hx Family Endocrine Disorder: Yes (Diabetes Mellitus) Sister Living Status: Still Living Hx Family Cardiac Disorders: Yes (HTN) Hx Family Endocrine Disorder: Yes (Diabetes Mellitus) Medications and Allergies Ferrous Sulfate [Iron] 325 mg PO DAILY 09/16/17 [History] Metoprolol Tartrate [Metoprolol Tartrate] 100 mg PO BID 09/16/17 [History] Polyethylene Glycol 3350 [MiraLAX bowel prep] 17 gm PO DAILY 09/16/17 [History] OxyCODONE/APAP 5/325 [Percocet 5/325 MG] 1 tab PO Q6H 09/29/17 [History] 3 Allergy/AdvReac Type Severity Reaction Status Date / Time No Known Allergies Allergy Verified 09/28/17 20:35 Review of Systems All systems PM: reviewed and no additional remarkable complaints except as stated (in the HPI) All systems PM: The remainder of the systems were reviewed and are negative General Surgery Exam Initial Vital Signs Temp Pulse Resp BP Pulse Ox 97.7 F 101 18 130/81 96 09/28/17 20:35 09/28/17 20:35 09/28/17 20:35 09/28/17 20:35 09/28/17 20:35 - General physical appearance well developed, well nourished, moderate pain - Eyes normal ocular movement - ENT normal mucosa, atraumatic, normocephalic - Neck trachea midline - Respiratory normal respiratory effort, clear to auscultation - Cardiovascular Cardiovascular exam: Present: RRR - Abdomen Abdomen general surgery: Present: bowel sounds present, soft, tender Abdominal Tenderness: Present: diffusely - Incision Incision: Present: clean and dry, intact - Integumentary Integumentary general surgery: Present: warm and dry - Neurologic Present: CN 2-12 grossly intact - Psychiatric Psychiatric general surgery: Present: appropriate, oriented to person, oriented to place, oriented to time, speech is normal, memory intact Exam Initial Vital Signs Temp Pulse Resp BP Pulse Ox 97.7 F 101 18 130/81 96 09/28/17 20:35 09/28/17 20:35 09/28/17 20:35 09/28/17 20:35 09/28/17 20:35 Results - Labs 09/28/17 22:59 09/28/17 22:59 Abnormal lab results Hgb 9.5 g/dL (12.9-16.9) L D 09/28/17 22:59 Hct 32.1 % (37.5-50.1) L 09/28/17 22:59 MCV 69.6 fL (83.0-100.0) L 09/28/17 22:59 MCH 20.6 pg (28.0-33.3) L 09/28/17 22:59 MCHC 29.6 g/dL (31.6-35.5) L 09/28/17 22:59 RDW 21.3 % (11.5-14.5) H 09/28/17 22:59 MPV 9.3 fL (9.4-12.4) L 09/28/17 22:59 Lymphocytes # 0.5 K/mcL (0.6-4.6) L 09/28/17 22:59 Microcytosis Present (Not Present) A 09/28/17 22:59 Sodium 134 mEq/L (136-145) L 09/28/17 22:59 Glucose 116 mg/dL (70-105) H 09/28/17 22:59 Calculated Osmolality 279 (280-300) L 09/28/17 22:59 Total Bilirubin 1.3 mg/dL (0.3-1.0) H 09/28/17 22:59 Direct Bilirubin 0.3 mg/dL (0.0-0.2) H 09/28/17 22:59 Amylase 12 Units/L (29-103) L 09/28/17 22:59 Lipase 5 Units/L (11-82) L 09/28/17 22:59 Urine Ketones 40 mg/dL (Negative) H 09/28/17 23:16 Urine Bilirubin Small (Negative) H 09/28/17 23:16 Urine Urobilinogen 2.0 mg/dL (Normal) H 09/28/17 23:16 Urine Microscopic WBC 3-5 per hpf (0-3) H 09/28/17 23:16 Ur Squamous Epith Cells Many per lpf (None-Few) H 09/28/17 23:16 All other labs normal. - Imaging CT scan - abdomen: report reviewed CT scan - pelvis: report reviewed Additional studies: Abdomen/Pelvis CT 09/29/17 22:43 IMPRESSION: Postoperative changes of right colectomy with ileal colic anastomosis in the right lower quadrant. Small volume of pneumoperitoneum, free fluid, and mesenteric edema could be related to recent surgery. Mild diffuse distention of the small bowel without transition point noted. Findings are favored to be related to ileus. Gas within the left body wall and scrotum are likely related to recent surgery as well. Multiple hypodense hepatic lesions, concerning for metastatic disease. Bibasilar atelectasis. Findings were discussed with Dr. Henrik Liz at 12:55 am on 09/29/2017. D/ / 09/29/2017 07:32:55 Flavio Horowitz MD / judith Interpreting Provider: Flavio Horowitz MD Consult Discharge Plan - Plan Referrals: Meg Venegas, MOLD SANDER [Primary Care Provider] - - Attending Attestation For this encounter, I have reviewed the TIME STUDY TECHNOLOGIST or PA documentation, treatment plan, and medical decision making; and I have had face to face time with this patient.
[2017-09-29] MEDS: Piperacillin/Tazobactam 3.375 GM in 0.9 % Sodium Chloride Mini Bag 100 ML IVPB SCH ×3 (14:29→23:15)
[2017-09-29] MEDS: Ketorolac 15 MG/ML VIAL IVP SCH ×3 (14:37→23:51)
[2017-09-29] MEDS: *HR* Metoprolol 5 MG/5 ML VIAL IVP SCH ×3 (14:38→23:15)
[2017-09-29] MEDS: Acetaminophen IV 1,000 MG/100 ML INFUS..BTL IVPB SCH ×2 (15:10→23:12)
[2017-09-29] MEDS: 0.9 % Sodium Chloride 1,000 ML IVC SCH (15:11)
--- NOTE | 2017-09-29 16:57 | Operative Note ---
Date of procedure: 09/28/17 Pre-op diagnosis: Diverticular disease Post-op diagnosis: same Procedure: Robotic Sigmoid colectomy with takedown of splenic flexure and a 29 mm EEA stapling Anesthesia: DARENA Surgeon: Samson Ly Was there an pharmacist assistant present: Yes Pilot Plant Technician: Karina Dugan Estimated blood loss (cc): 25 Specimen: Sigmoid colon Condition: stable Disposition: same day Procedure in Detail: After informed consent, patient taken operating room placed supine position. After adequate sedation anesthesia patient was placed in a lithotomy position. After proper timeout a 12 mm cannula site was placed right superior to the umbilicus. Pneumoperitoneum was greater. A 13 mm cannula was placed in right lower quadrant. 5 mm camera was placed in the right upper quadrant. An 8 mm cannula was placed in subxiphoid region followed by another 8 mm in the left lower quadrant. Patient was placed in a headdown position. The robot was docked over the patient's left hip. Small bowel swept out of the pelvis. Rectosigmoid colon was then grasped and retracted cephalad. The peritoneum was then scored level of the sacral promontory. The left ureter was identified and kept on harm's way. The inferior mesenteric artery was then taken with a vessel sealer. The lateral rectosigmoid stalks were taken down the vessel sealer. The dissection was carried out down to approximate 4 cm above the pelvic floor. Rectosigmoid colon was dissected free from the retro-pubic tubercle region. Once it was freed a 45 mm robotic Endo staplers fired across the rectum. Once it was retracted and area was demarcated on the sigmoid colon for transection. Indocyanine green was infused and we had excellent perfusion. The splenic flexure was also taken down and mobilized. This mobilization allowed for less tension on the anastomosis. A counterincision was made in the suprapubic region. Dissection carried down the anterior rectus sheath. The rectus muscles were then divided in the midline with Bety clamp. Once they were split the rectosigmoid colon was delivered. Timothy bowel clamps are used to place across the colon proximal and distal and transected. Allis clamps are placed on the bowel and then a pursestring suture device placed on the colon. 3-0 Prolene suture was passed. A pursestring sutures and created and a 29 mm EEA anvil was placed. Suture was tied and secured. Colon was then placed back in the pelvis. The stapler was passed through the anal canal and to the rectal stump and then the spear was placed through the staple line. The anvil was then connected secured and fired. There were 2 excellent donuts. There were several 2-0 silk sutures used to buttress the staple line. A leak test revealed no leak. At that point the procedure was terminated. All incisions are closed with 0 Vicryl suture and 4-0 Vicryl suture. Marcaine was inserted in the Pfannenstiel incision. She tolerated the procedure well.
[2017-09-29] MEDS ORDERED: Clinimix E 5%-15% SOLUTION 2,000 ML with MVI, adult with vitamin K 10 ML IVC SCH (17:00)
[2017-09-29] MEDS: *HR* Heparin 5,000 UNIT/ML VIAL SQ SCH (18:10)
[2017-09-30] MEDS: Acetaminophen IV 1,000 MG/100 ML INFUS..BTL IVPB SCH ×4 (03:49→21:40)
[2017-09-30 05:58] LABS: Basophils % 0.1 %; Eosinophils % 0.1 %
[2017-09-30 06:00] LABS: Hematocrit 30.4 % (37.5-50.1); Immature Granulocytes % 0.4 % (0-4); Immature Platelets 4.9 % (1.1-6.1); Lymphocytes # 0.6 K/mcL (0.6-4.6); Lymphocytes % 5.3 %; Mean Corpuscular Volume 70.7 fL (83.0-100.0); Mean Platelet Volume 11.7 fL (9.4-12.4); Monocytes # 1.1 K/mcL (0.0-1.3); Monocytes % 9.1 %; Platelet Count 318 K/mcL (140-400)
[2017-09-30] MEDS: Ketorolac 15 MG/ML VIAL IVP SCH ×3 (06:01→16:43)
[2017-09-30] MEDS: *HR* Heparin 5,000 UNIT/ML VIAL SQ SCH ×2 (06:01→16:43)
[2017-09-30] MEDS: *HR* Metoprolol 5 MG/5 ML VIAL IVP SCH ×3 (06:01→16:43)
[2017-09-30 06:26] LABS: Hemoglobin 8.6 g/dL (12.9-16.9)
[2017-09-30 06:27] LABS: Mean Corpuscular HGB Conc 28.3 g/dL (31.6-35.5)
[2017-09-30] MEDS: 0.9 % Sodium Chloride 1,000 ML IVC SCH ×2 (06:56→08:36)
--- NOTE | 2017-09-30 07:05 | Operative Note ---
Date of procedure: 09/29/17 Pre-op diagnosis: Perforated viscus Post-op diagnosis: same Procedure: Exploratory Laparotomy with resection of ileocolic anastomosis and a side to side, functional end to end anastomosis. Anesthesia: DARENA Surgeon: Samson Ly Was there an clinical services assistant present: Yes Cam Milling Machine Operator: Karina Dugan Estimated blood loss (cc): 50 Specimen: ileocolic anastomosis Condition: stable Disposition: floor Procedure in Detail: After informed consent, the patient was taken to the operating room placed in a supine position. After adequate sedation and anesthesia the abdomen was prepped and draped. A midline incision was created. The abdominal cavity had purulent fluid. I was then able to identify the anastomosis and it was intact at the suture line, however there was an opening posteriorly just distal to the staple line. A decision was made to resect the anastomosis and perform another side to side, functional end to end anastomosis. At that point the abdomen was irrigated and suctioned dry the fascia was reclosed with a loop PDS suture. Skin irish were placed two drains were placed in the right upper quadrant and the subcutaneous space.
[2017-09-30 07:07] LABS: Anisocytosis 2+ (Not Present); Hypochromasia Present (Not Present); Microcytosis Present (Not Present); Platelet Estimate Normal (Normal)
[2017-09-30] MEDS: *HR* FentaNYL PATCH 25 MCG PATCH TD SCH (08:23)
[2017-09-30 08:27] LABS: BUN/Creatinine Ratio 25 (6-26); Blood Urea Nitrogen 17 mg/dL (6-20); Calcium 7.3 mg/dL (8.6-10.3); Carbon Dioxide 22 mEq/L (23-29); Chloride 95 mEq/L (98-107); Glucose 131 mg/dL (70-105); Magnesium 1.8 mg/dL (1.6-2.6); Osmolality,Calculated 277 (280-300); Phosphorous 3.1 mg/dL (2.7-4.5); Potassium 3.7 mEq/L (3.5-5.1); Sodium 132 mEq/L (136-145); eGFR For African Americans > 60 (> 60); eGFR For Non-African Americans > 60 (> 60)
[2017-09-30] MEDS: Piperacillin/Tazobactam 3.375 GM in 0.9 % Sodium Chloride Mini Bag 100 ML IVPB SCH ×2 (08:28→14:45)
[2017-09-30] MEDS ORDERED: D10% in Water 500 ML IVC PRN (11:44)
--- NOTE | 2017-09-30 14:20 | General Surgery Progress Note ---
Date of Encounter: 09/30/17 Time of Encounter: 14:00 - Assessment and Plan (1) Anastomotic leak of intestine Current Visit: Yes Status: Acute POD #1 Exploratory Laparotomy with resection of ileocolic anastomosis and a side to side, functional end to end anastomosis. Pathology pending Pathology from colon resection 1 week ago- poorly differentiated adenocarcinoma invading through pericolonic fat, margins negative, node positive ; liver biopsy benign NPO while awaiting return of bowel function NG tube to LIWS PICC line Continue TPN while awaiting return of bowel function IV antibiotics- Zosyn Daily dressing changes Maintain SANDRA drains X 2 Supportive care and pain control Incentive spirometer every 1 hour while awake Remove king catheter today GI prophylaxis Out of bed to chair and ambulate hallways 3 times a day with assistance A.m. labs- CBC, BMP, Mg, Phos (2) Metastatic colon cancer to liver Current Visit: No Status: Acute Postoperative day #7 from a Robotic Right colectomy; liver biopsy and Aport placement with Dr. Ly Oncology following Pathology- poorly differentiated adenocarcinoma invading through pericolonic fat, margins negative, node positive; liver biopsy benign (3) Hypertension Current Visit: Yes Status: Chronic Metoprolol IV every 6 hours [facility] We will continue to monitor and treat as necessary Qualifiers: Hypertension type: essential hypertension Qualified Code(s): I10 - Essential (primary) hypertension (4) Obesity Current Visit: Yes Status: Chronic Qualifiers: Obesity type: due to excess calories Obesity classification: unspecified obesity classification Serious obesity comorbidity presence: unspecified whether serious comorbidity present Qualified Code(s): E66.09 - Other obesity due to excess calories (5) DVT prophylaxis Current Visit: Yes Status: Acute Start heparin 5000 units subcutaneous twice daily EPCDs to bilateral lower extremities for DVT prophylaxis Out of bed to chair and ambulating hallways 3 times a day with assistance Subjective Patient reports: no new complaints, still having pain, pain is less, flatus, no bowel movement, afebrile Objective Vital Signs - Last 8 Hours Temp Pulse Resp BP Pulse Ox 09/30/17 10:40 98 F 102 16 158/96 92 09/30/17 06:52 98.2 F 87 16 142/88 94 Intake and Output 09/29/17 09/30/17 09/30/17 23:59 07:59 15:59 Intake Total 200 / 200 1200 / 1200 1480 / 1480 Output Total 530 / 530 355 / 355 20 / 20 Balance -330 / -330 845 / 845 1460 / 1460 Intake: IV Fluids 200 / 200 1200 / 1200 1480 / 1480 0.9 % Sodium Chloride 1,000 ML 1000 / 1000 @ 100 mls/hr IVC .Q10H [facility] Rx#: [id number] Ofirmev 1,000 mg/100 ml 1,000 100 / 100 100 / 100 100 / 100 mg In 100 ml @ 400 mls/hr IVPB Q6H [facility] Rx#:[id number] Intralipid 20% 250 ML @ 21 mls/ 250 / 250 hr IVPB DAILY@1700 [facility] Rx#: [id number] Zosyn 3.375 GM In 0.9 % Sodium 100 / 100 100 / 100 100 / 100 Chloride (Mini-Bag +) 100 ML @ 25 mls/hr IVPB Q8HR [facility] Rx#: [id number] Output: Urine 300 / 300 Catheter 200 / 200 300 / 300 Wound Drainage 30 / 30 55 / 55 20 / 20 Left 5 / 5 20 / 20 10 Right 25 / 25 35 / 35 10 / 10 Other: Weight 138.346 kg Blood Glucose* 157 134 123 Patient Weight 09/30/17 23:59 Weight 138.346 kg - General physical appearance well developed, well nourished, no distress - Eyes normal ocular movement - ENT dry mucosa, atraumatic, normocephalic - Neck Neck exam: trachea midline - Respiratory normal respiratory effort, clear to auscultation - Cardiovascular Cardiovascular exam: Present: RRR, tachycardia - Abdomen Abdomen: Present: soft, tender (Expected postoperative tenderness), wound (SANDRA drain X 2 with serousang. draingae noted (Drain #1 on the right- 45ml since midnight; Drain #2 on the left- 30ml since midnight)) - Incision Incision: Present: clean and dry, intact - Genitourinary other (king catheter to SD with saxena yellow urine noted) - Neurologic CN 2-12 grossly intact - Psychiatric oriented to time, oriented to person, oriented to place, speech is normal, memory intact - Labs 09/30/17 04:12 09/30/17 04:12 Diabetes panel 09/30/17 09/30/17 Range/Units 04:12 04:12 Sodium 132 L (136-145) mEq/L Potassium 3.7 (3.5-5.1) mEq/L Chloride 95 L (98-107) mEq/L Carbon Dioxide 22 L (23-29) mEq/L BUN 17 (6-20) mg/dL Creatinine 0.68 L (0.70-1.30) mg/dL Glucose 131 H (70-105) mg/dL Calcium 7.3 L (8.6-10.3) mg/dL Triglycerides > 1000 H (< 150) mg/dL Calcium panel 09/30/17 Range/Units 04:12 Calcium 7.3 L (8.6-10.3) mg/dL Phosphorus 3.1 (2.7-4.5) mg/dL Pituitary panel 09/30/17 Range/Units 04:12 Sodium 132 L (136-145) mEq/L Potassium 3.7 (3.5-5.1) mEq/L Chloride 95 L (98-107) mEq/L Carbon Dioxide 22 L (23-29) mEq/L BUN 17 (6-20) mg/dL Creatinine 0.68 L (0.70-1.30) mg/dL Glucose 131 H (70-105) mg/dL Calcium 7.3 L (8.6-10.3) mg/dL Adrenal panel 09/30/17 Range/Units 04:12 Sodium 132 L (136-145) mEq/L Potassium 3.7 (3.5-5.1) mEq/L Chloride 95 L (98-107) mEq/L Carbon Dioxide 22 L (23-29) mEq/L BUN 17 (6-20) mg/dL Creatinine 0.68 L (0.70-1.30) mg/dL Glucose 131 H (70-105) mg/dL Calcium 7.3 L (8.6-10.3) mg/dL Consult Discharge Plan - Plan Referrals: Meg Venegas, PIGMENT PUMPER [Primary Care Provider] - - Attending Attestation For this encounter, I have reviewed the MARBLE POLISHER HAND or PA documentation, treatment plan, and medical decision making; and I have had face to face time with this patient.
[2017-09-30] MEDS: Chloraseptic Spray 177 ML BOTTLE MM PRN (16:43)
[2017-09-30] MEDS ORDERED: MVI IVC SCH (17:00)
[2017-09-30] MEDS ORDERED: PARENTERAL AMINO ACID 10% IVC SCH (17:00)
[2017-09-30] MEDS ORDERED: CLINIMIX E IVC SCH (17:00)
[2017-09-30] MEDS ORDERED: [UNRECOGNIZED DRUG - OTHER] IVC SCH (17:00)
[2017-09-30] MEDS: Metoclopramide 10 MG/2 ML VIAL IVP SCH (17:51)
[2017-10-01] MEDS: Metoclopramide 10 MG/2 ML VIAL IVP SCH ×5 (01:00→23:38)
[2017-10-01] MEDS: Ketorolac 15 MG/ML VIAL IVP SCH ×5 (01:00→23:38)
[2017-10-01] MEDS: *HR* Metoprolol 5 MG/5 ML VIAL IVP SCH ×5 (01:02→23:38)
[2017-10-01] MEDS: Piperacillin/Tazobactam 3.375 GM in 0.9 % Sodium Chloride Mini Bag 100 ML IVPB SCH ×4 (01:04→23:39)
[2017-10-01] MEDS: Acetaminophen IV 1,000 MG/100 ML INFUS..BTL IVPB SCH ×4 (04:39→21:47)
[2017-10-01 05:35] LABS: Basophils % 0.1 %; Eosinophils # 0.1 K/mcL (0.0-0.6); Eosinophils % 0.8 %; Hematocrit 28.4 % (37.5-50.1); Hemoglobin 8.4 g/dL (12.9-16.9); Immature Granulocytes % 0.8 % (0-4); Lymphocytes % 7.4 %; Mean Corpuscular HGB Conc 29.6 g/dL (31.6-35.5); Mean Corpuscular Hemoglobin 20.5 pg (28.0-33.3); Mean Corpuscular Volume 69.3 fL (83.0-100.0); Mean Platelet Volume 10.2 fL (9.4-12.4); Monocytes # 1.4 K/mcL (0.0-1.3); Monocytes % 10.4 %; Neutrophils # 10.7 K/mcL (1.6-8.9); Platelet Count 363 K/mcL (140-400); Red Cell Distribution Width 21.3 % (11.5-14.5); Segmented Neutrophils % 80.5 %
[2017-10-01 05:48] LABS: BUN/Creatinine Ratio 35 (6-26); Blood Urea Nitrogen 26 mg/dL (6-20); Calcium 8.7 mg/dL (8.6-10.3); Carbon Dioxide 31 mEq/L (23-29); Chloride 100 mEq/L (98-107); Glucose 111 mg/dL (70-105); Magnesium 2.3 mg/dL (1.6-2.6); Osmolality,Calculated 291 (280-300); Phosphorous 3.1 mg/dL (2.7-4.5); Potassium 3.2 mEq/L (3.5-5.1); Sodium 138 mEq/L (136-145); eGFR For African Americans > 60 (> 60); eGFR For Non-African Americans > 60 (> 60)
[2017-10-01 06:03] LABS: Anisocytosis 2+ (Not Present); Platelet Estimate Normal (Normal)
[2017-10-01 06:04] LABS: Microcytosis Present (Not Present)
[2017-10-01 06:05] LABS: Hypochromasia Present (Not Present)
[2017-10-01] MEDS: *HR* Heparin 5,000 UNIT/ML VIAL SQ SCH ×2 (06:47→17:45)
[2017-10-01] MEDS ORDERED: MVI IVC SCH (17:00)
[2017-10-01] MEDS ORDERED: PARENTERAL AMINO ACID 10% IVC SCH (17:00)
[2017-10-01] MEDS ORDERED: [UNRECOGNIZED DRUG - OTHER] IVC SCH (17:00)
[2017-10-01] MEDS ORDERED: CLINIMIX E IVC SCH (17:00)
--- NOTE | 2017-10-01 18:40 | General Surgery Progress Note ---
<Loli Calvillo-Breanna - Last Filed: 10/01/17 18:37> Date of Encounter: 10/01/17 Time of Encounter: 11:15 - Assessment and Plan (1) Anastomotic leak of intestine Current Visit: Yes Status: Acute POD #2 Exploratory Laparotomy with resection of ileocolic anastomosis and a side to side, functional end to end anastomosis. Pathology pending Pathology from colon resection 1 week ago- poorly differentiated adenocarcinoma invading through pericolonic fat, margins negative, node positive ; liver biopsy benign NPO while awaiting return of bowel function NG tube to LIWS PICC line Continue TPN while awaiting return of bowel function IV antibiotics- Zosyn Daily dressing changes Maintain SANDRA drains X 2 Supportive care and pain control Incentive spirometer every 1 hour while awake Remove king catheter today GI prophylaxis Out of bed to chair and ambulate hallways 3 times a day with assistance A.m. labs- CBC, BMP, Mg, Phos (2) Metastatic colon cancer to liver Current Visit: No Status: Acute Postoperative day #8 from a Robotic Right colectomy; liver biopsy and Aport placement with Dr. Ly Oncology following Pathology- poorly differentiated adenocarcinoma invading through pericolonic fat, margins negative, node positive; liver biopsy benign (3) Obesity Current Visit: Yes Status: Chronic Qualifiers: Obesity type: due to excess calories Obesity classification: unspecified obesity classification Serious obesity comorbidity presence: unspecified whether serious comorbidity present Qualified Code(s): E66.09 - Other obesity due to excess calories (4) Hypertension Current Visit: Yes Status: Chronic Metoprolol IV every 6 hours [facility] We will continue to monitor and treat as necessary Qualifiers: Hypertension type: essential hypertension Qualified Code(s): I10 - Essential (primary) hypertension (5) DVT prophylaxis Current Visit: Yes Status: Acute heparin 5000 units subcutaneous twice daily EPCDs to bilateral lower extremities for DVT prophylaxis Out of bed to chair and ambulating hallways 3 times a day with assistance Subjective Patient reports: feels better, pain is less, flatus, no bowel movement, afebrile Objective Vital Signs - Last 8 Hours Temp Pulse Resp BP Pulse Ox 10/01/17 15:28 97.2 F L 104 16 191/100 92 10/01/17 11:57 98.0 F 108 15 154/94 95 Intake and Output 10/01/17 10/01/17 10/01/17 07:59 15:59 23:59 Intake Total 200 / 200 200 / 200 Output Total 1260 / 1260 700 / 700 Balance -1060 / -1060 -500 / -500 Intake: IV Fluids 200 / 200 200 / 200 Ofirmev 1,000 mg/100 ml 1,000 100 / 100 100 / 100 mg In 100 ml @ 400 mls/hr IVPB Q6H [facility] Rx#:[id number] Zosyn 3.375 GM In 0.9 % Sodium 100 / 100 100 / 100 Chloride (Mini-Bag +) 100 ML @ 25 mls/hr IVPB Q8HR [facility] Rx#: [id number] Output: Urine 700 / 700 Gastric Tube Lavage Amount 1215 / 1215 Left Nare 1215 / 1215 Wound Drainage 45 / 45 Left / Right Other: Blood Glucose* 129 148 103 - General physical appearance well developed, well nourished, no distress - Eyes PERRL, normal ocular movement - ENT normal mucosa - Neck Neck exam: trachea midline - Respiratory normal expansion, normal respiratory effort, clear to auscultation - Cardiovascular Cardiovascular exam: Present: RRR, no murmurs/rubs/gallops - Abdomen Abdomen: Present: soft, tender (Appropriate postoperative tenderness.) Additional Comments: SANDRA drain X 2 with Serosanguineous drainage noted - Incision Incision: Present: clean and dry, intact. Absent: draining, purulent - Genitourinary other (King catheter is placed. Urine yellow without any blood.) - Integumentary no rash - Neurologic CN 2-12 grossly intact - Psychiatric oriented to time, oriented to person, oriented to place - Labs 10/01/17 04:53 10/01/17 04:53 Diabetes panel 10/01/17 Range/Units 04:53 Sodium 138 (136-145) mEq/L Potassium 3.2 L (3.5-5.1) mEq/L Chloride 100 (98-107) mEq/L Carbon Dioxide 31 H (23-29) mEq/L BUN 26 H (6-20) mg/dL Creatinine 0.74 (0.70-1.30) mg/dL Glucose 111 H (70-105) mg/dL Calcium 8.7 (8.6-10.3) mg/dL Calcium panel 10/01/17 Range/Units 04:53 Calcium 8.7 (8.6-10.3) mg/dL Phosphorus 3.1 (2.7-4.5) mg/dL Pituitary panel 10/01/17 Range/Units 04:53 Sodium 138 (136-145) mEq/L Potassium 3.2 L (3.5-5.1) mEq/L Chloride 100 (98-107) mEq/L Carbon Dioxide 31 H (23-29) mEq/L BUN 26 H (6-20) mg/dL Creatinine 0.74 (0.70-1.30) mg/dL Glucose 111 H (70-105) mg/dL Calcium 8.7 (8.6-10.3) mg/dL Adrenal panel 10/01/17 Range/Units 04:53 Sodium 138 (136-145) mEq/L Potassium 3.2 L (3.5-5.1) mEq/L Chloride 100 (98-107) mEq/L Carbon Dioxide 31 H (23-29) mEq/L BUN 26 H (6-20) mg/dL Creatinine 0.74 (0.70-1.30) mg/dL Glucose 111 H (70-105) mg/dL Calcium 8.7 (8.6-10.3) mg/dL - VTE Documentation of Mechanical Device: Intermittent pneumatic compression device Consult Discharge Plan - Plan Referrals: Meg Venegas, FOOD SALES CLERK [Primary Care Provider] - <Jesús Bruce - Last Filed: 10/02/17 13:06> Date of Encounter: 10/01/17 Objective Vital Signs - Last 8 Hours Temp Pulse Resp BP Pulse Ox 10/02/17 11:17 98.2 F 99 16 168/97 94 10/02/17 08:00 98.7 F 106 16 189/93 92 Intake and Output 10/01/17 10/02/17 10/02/17 23:59 07:59 15:59 Intake Total 200 / 200 200 / 200 Output Total 350 / 350 1300 / 1300 565 / 565 Balance -150 / -150 -1100 / -1100 -565 / -565 Intake: IV Fluids 200 / 200 200 / 200 Ofirmev 1,000 mg/100 ml 1,000 100 / 100 100 / 100 mg In 100 ml @ 400 mls/hr IVPB Q6H [facility] Rx#:[id number] Zosyn 3.375 GM In 0.9 % Sodium 100 / 100 100 / 100 Chloride (Mini-Bag +) 100 ML @ 25 mls/hr IVPB Q8HR [facility] Rx#: [id number] Output: Urine 350 / 350 525 / 525 Gastric Tube Lavage Amount 1300 / 1300 Left Nare 1300 / 1300 Wound Drainage 40 / Left Right Other: # Voids 1 Blood Glucose* 125 102 120 - Labs 10/02/17 08:40 10/02/17 07:20 Diabetes panel 10/02/17 Range/Units 07:20 Sodium 139 (136-145) mEq/L Potassium 3.2 L (3.5-5.1) mEq/L Chloride 101 (98-107) mEq/L Carbon Dioxide 31 H (23-29) mEq/L BUN 23 H (6-20) mg/dL Creatinine 0.63 L (0.70-1.30) mg/dL Glucose 102 (70-105) mg/dL Calcium 8.7 (8.6-10.3) mg/dL Calcium panel 10/02/17 Range/Units 07:20 Calcium 8.7 (8.6-10.3) mg/dL Phosphorus 3.8 (2.7-4.5) mg/dL Pituitary panel 10/02/17 Range/Units 07:20 Sodium 139 (136-145) mEq/L Potassium 3.2 L (3.5-5.1) mEq/L Chloride 101 (98-107) mEq/L Carbon Dioxide 31 H (23-29) mEq/L BUN 23 H (6-20) mg/dL Creatinine 0.63 L (0.70-1.30) mg/dL Glucose 102 (70-105) mg/dL Calcium 8.7 (8.6-10.3) mg/dL Adrenal panel 10/02/17 Range/Units 07:20 Sodium 139 (136-145) mEq/L Potassium 3.2 L (3.5-5.1) mEq/L Chloride 101 (98-107) mEq/L Carbon Dioxide 31 H (23-29) mEq/L BUN 23 H (6-20) mg/dL Creatinine 0.63 L (0.70-1.30) mg/dL Glucose 102 (70-105) mg/dL Calcium 8.7 (8.6-10.3) mg/dL - Attending Attestation I examined this patient and my medical decision-making was reviewed with the Resident Physician. I agree with the documented findings, disposition and treatment plan as described except to the extent set forth below. The patient is seen and evaluated on morning rounds with the resident. He continues to have high nasogastric tube output. Pain control is fair. He does have a few bowel sounds. We will continue maximum supportive care and await bowel function and flatus. Jesús Bruce MD FACS
[2017-10-02] MEDS: Acetaminophen IV 1,000 MG/100 ML INFUS..BTL IVPB SCH ×3 (03:06→15:56)
[2017-10-02] MEDS: Ketorolac 15 MG/ML VIAL IVP SCH ×2 (05:04→11:38)
[2017-10-02] MEDS: Metoclopramide 10 MG/2 ML VIAL IVP SCH ×3 (05:04→17:54)
[2017-10-02] MEDS: *HR* Heparin 5,000 UNIT/ML VIAL SQ SCH ×2 (05:05→17:54)
[2017-10-02] MEDS: *HR* Metoprolol 5 MG/5 ML VIAL IVP SCH ×4 (05:05→23:51)
[2017-10-02] MEDS: Piperacillin/Tazobactam 3.375 GM in 0.9 % Sodium Chloride Mini Bag 100 ML IVPB SCH ×3 (08:11→23:51)
[2017-10-02 08:43] LABS: BUN/Creatinine Ratio 37 (6-26); Blood Urea Nitrogen 23 mg/dL (6-20); Calcium 8.7 mg/dL (8.6-10.3); Carbon Dioxide 31 mEq/L (23-29); Chloride 101 mEq/L (98-107); Glucose 102 mg/dL (70-105); Magnesium 2.1 mg/dL (1.6-2.6); Osmolality,Calculated 292 (280-300); Phosphorous 3.8 mg/dL (2.7-4.5); Potassium 3.2 mEq/L (3.5-5.1); Sodium 139 mEq/L (136-145); eGFR For African Americans > 60 (> 60); eGFR For Non-African Americans > 60 (> 60)
[2017-10-02 09:26] LABS: Basophils % 0.1 %; Eosinophils % 2.6 %; Hemoglobin 7.9 g/dL (12.9-16.9); Mean Platelet Volume 10.1 fL (9.4-12.4)
[2017-10-02 09:27] LABS: Eosinophils # 0.3 K/mcL (0.0-0.6); Hematocrit 26.8 % (37.5-50.1); Immature Granulocytes % 0.6 % (0-4); Lymphocytes # 0.9 K/mcL (0.6-4.6); Mean Corpuscular HGB Conc 29.5 g/dL (31.6-35.5); Mean Corpuscular Hemoglobin 20.6 pg (28.0-33.3); Monocytes # 0.8 K/mcL (0.0-1.3); Monocytes % 7.5 %; Platelet Count 394 K/mcL (140-400); Red Blood Count 3.83 M/mcL (4.19-5.50); Red Cell Distribution Width 21.6 % (11.5-14.5); Segmented Neutrophils % 81.2 %
[2017-10-02 09:31] LABS: Neutrophils # 8.9 K/mcL (1.6-8.9)
[2017-10-02 09:33] LABS: Hypochromasia Present (Not Present)
[2017-10-02] MEDS: *HR* FentaNYL PATCH 25 MCG PATCH TD SCH (11:29)
[2017-10-02] MEDS ORDERED: [UNRECOGNIZED DRUG - OTHER] IVC SCH (17:00)
[2017-10-02] MEDS ORDERED: CLINIMIX E IVC SCH (17:00)
[2017-10-02] MEDS ORDERED: PARENTERAL AMINO ACID 10% IVC SCH (17:00)
[2017-10-02] MEDS ORDERED: MVI IVC SCH (17:00)
--- NOTE | 2017-10-02 17:34 | General Surgery Progress Note ---
<Loli Calvillo-Breanna - Last Filed: 10/02/17 17:32> Date of Encounter: 10/02/17 Time of Encounter: 11:45 - Assessment and Plan (1) Anastomotic leak of intestine Current Visit: Yes Status: Acute POD #3 Exploratory Laparotomy with resection of ileocolic anastomosis and a side to side, functional end to end anastomosis. Pathology pending Pathology from colon resection 1 week ago- poorly differentiated adenocarcinoma invading through pericolonic fat, margins negative, node positive ; liver biopsy benign NPO while awaiting return of bowel function NG tube to king. If residual is less than 50mL in 6 hours, then discontinue the NG tube. PICC line Continue TPN while awaiting return of bowel function IV antibiotics- Zosyn Daily dressing changes Maintain SANDRA drains X 2 Supportive care and pain control Incentive spirometer every 1 hour while awake GI prophylaxis Out of bed to chair and ambulate hallways 3 times a day with assistance A.m. labs- CBC, BMP, Mg, Phos (2) Metastatic colon cancer to liver Current Visit: No Status: Acute Postoperative day #9 from a Robotic Right colectomy; liver biopsy and Aport placement with Dr. Ly Oncology following Pathology- poorly differentiated adenocarcinoma invading through pericolonic fat, margins negative, node positive; liver biopsy benign (3) Obesity Current Visit: Yes Status: Chronic Qualifiers: Obesity type: due to excess calories Obesity classification: unspecified obesity classification Serious obesity comorbidity presence: unspecified whether serious comorbidity present Qualified Code(s): E66.09 - Other obesity due to excess calories (4) Hypertension Current Visit: Yes Status: Chronic Metoprolol IV every 6 hours [facility] We will continue to monitor and treat as necessary Qualifiers: Hypertension type: essential hypertension Qualified Code(s): I10 - Essential (primary) hypertension (5) DVT prophylaxis Current Visit: Yes Status: Acute heparin 5000 units subcutaneous twice daily EPCDs to bilateral lower extremities for DVT prophylaxis Out of bed to chair and ambulating hallways 3 times a day with assistance Subjective Patient reports: no new complaints, still having pain, pain is less, no bowel movement, afebrile, other (Patient states that the NG tube is uncomfortable.) Objective Vital Signs - Last 8 Hours Temp Pulse Resp BP Pulse Ox 10/02/17 14:56 99.1 F 108 16 197/120 95 10/02/17 11:17 98.2 F 99 16 168/97 94 Intake and Output 10/02/17 10/02/17 10/02/17 07:59 15:59 23:59 Intake Total 200 / 200 200 / 200 Output Total 1300 / 1300 1165 / 1165 Balance -1100 / -1100 -965 / -965 - Intake: IV Fluids 200 / 200 200 / 200 Ofirmev 1,000 mg/100 ml 1,000 100 / 100 100 / 100 mg In 100 ml @ 400 mls/hr IVPB Q6H [facility] Rx#:[id number] Zosyn 3.375 GM In 0.9 % Sodium 100 / 100 100 / 100 Chloride (Mini-Bag +) 100 ML @ 25 mls/hr IVPB Q8HR [facility] Rx#: [id number] Output: Urine 1125 / 1125 Gastric Tube Lavage Amount 1300 / 1300 Left Nare 1300 / 1300 Wound Drainage 40 / 40 15 / 15 Left 30 / 30 10 / 10 Right 10 / 10 5 / 5 Other: # Voids 1 Blood Glucose* 102 98 - General physical appearance well developed, well nourished, no distress - Eyes PERRL, normal ocular movement - ENT normal mucosa - Neck Neck exam: trachea midline - Respiratory normal expansion, normal respiratory effort, clear to auscultation - Cardiovascular Cardiovascular exam: Present: RRR, no murmurs/rubs/gallops - Abdomen Abdomen: Present: bowel sounds present (Hypoactive bowel sounds), soft, tender ( Appropriate postoperative tenderness) Additional Comments: SANDRA drain X 2 with Serosanguineous drainage noted - Incision Incision: Present: clean and dry, intact. Absent: draining, purulent - Integumentary no rash - Neurologic CN 2-12 grossly intact - Psychiatric oriented to time, oriented to person, oriented to place - Labs 10/02/17 08:40 10/02/17 07:20 Diabetes panel 10/02/17 Range/Units 07:20 Sodium 139 (136-145) mEq/L Potassium 3.2 L (3.5-5.1) mEq/L Chloride 101 (98-107) mEq/L Carbon Dioxide 31 H (23-29) mEq/L BUN 23 H (6-20) mg/dL Creatinine 0.63 L (0.70-1.30) mg/dL Glucose 102 (70-105) mg/dL Calcium 8.7 (8.6-10.3) mg/dL Calcium panel 10/02/17 Range/Units 07:20 Calcium 8.7 (8.6-10.3) mg/dL Phosphorus 3.8 (2.7-4.5) mg/dL Pituitary panel 10/02/17 Range/Units 07:20 Sodium 139 (136-145) mEq/L Potassium 3.2 L (3.5-5.1) mEq/L Chloride 101 (98-107) mEq/L Carbon Dioxide 31 H (23-29) mEq/L BUN 23 H (6-20) mg/dL Creatinine 0.63 L (0.70-1.30) mg/dL Glucose 102 (70-105) mg/dL Calcium 8.7 (8.6-10.3) mg/dL Adrenal panel 10/02/17 Range/Units 07:20 Sodium 139 (136-145) mEq/L Potassium 3.2 L (3.5-5.1) mEq/L Chloride 101 (98-107) mEq/L Carbon Dioxide 31 H (23-29) mEq/L BUN 23 H (6-20) mg/dL Creatinine 0.63 L (0.70-1.30) mg/dL Glucose 102 (70-105) mg/dL Calcium 8.7 (8.6-10.3) mg/dL - VTE Documentation of Mechanical Device: Intermittent pneumatic compression device Consult Discharge Plan - Plan Referrals: Meg Venegas, SHRIMP HEADER [Primary Care Provider] - <Jesús Bruce - Last Filed: 10/03/17 07:46> Date of Encounter: 10/02/17 Objective Vital Signs - Last 8 Hours Temp Pulse Resp BP Pulse Ox 10/03/17 07:23 97.6 F 114 17 132/83 93 10/03/17 04:33 100.3 F H 113 17 153/82 91 Intake and Output 10/02/17 10/02/17 10/03/17 15:59 23:59 07:59 Intake Total 200 / 200 100 / 100 Output Total 1165 / 1165 1675 / 1675 678 / 678 Balance -965 / -965 -1575 / -1575 -678 / -678 Intake: IV Fluids 200 / 200 100 / 100 Ofirmev 1,000 mg/100 ml 1,000 100 / 100 mg In 100 ml @ 400 mls/hr IVPB Q6H [facility] Rx#:[id number] Zosyn 3.375 GM In 0.9 % Sodium 100 / 100 100 / 100 Chloride (Mini-Bag +) 100 ML @ 25 mls/hr IVPB Q8HR [facility] Rx#: [id number] Output: Urine 1125 / 1125 350 / 350 660 / 660 Gastric Tube Lavage Amount Left Nare Catheter 400 / 400 Gastric Drainage 900 / 900 Wound Drainage Left Right Other: Stool Size Large Stool Consistency liquid Stool Color Brown # Voids 1 # Bowel Movements 1 Weight 139.706 kg Blood Glucose* 98 115 123 Patient Weight 10/03/17 23:59 Weight 139.706 kg - Labs 10/02/17 08:40 10/02/17 07:20 Diabetes panel 10/02/17 Range/Units 07:20 Sodium 139 (136-145) mEq/L Potassium 3.2 L (3.5-5.1) mEq/L Chloride 101 (98-107) mEq/L Carbon Dioxide 31 H (23-29) mEq/L BUN 23 H (6-20) mg/dL Creatinine 0.63 L (0.70-1.30) mg/dL Glucose 102 (70-105) mg/dL Calcium 8.7 (8.6-10.3) mg/dL Calcium panel 10/02/17 Range/Units 07:20 Calcium 8.7 (8.6-10.3) mg/dL Phosphorus 3.8 (2.7-4.5) mg/dL Pituitary panel 10/02/17 Range/Units 07:20 Sodium 139 (136-145) mEq/L Potassium 3.2 L (3.5-5.1) mEq/L Chloride 101 (98-107) mEq/L Carbon Dioxide 31 H (23-29) mEq/L BUN 23 H (6-20) mg/dL Creatinine 0.63 L (0.70-1.30) mg/dL Glucose 102 (70-105) mg/dL Calcium 8.7 (8.6-10.3) mg/dL Adrenal panel 10/02/17 Range/Units 07:20 Sodium 139 (136-145) mEq/L Potassium 3.2 L (3.5-5.1) mEq/L Chloride 101 (98-107) mEq/L Carbon Dioxide 31 H (23-29) mEq/L BUN 23 H (6-20) mg/dL Creatinine 0.63 L (0.70-1.30) mg/dL Glucose 102 (70-105) mg/dL Calcium 8.7 (8.6-10.3) mg/dL - Attending Attestation I examined this patient and my medical decision-making was reviewed with the Resident Physician. I agree with the documented findings, disposition and treatment plan as described except to the extent set forth below. The patient is seen and evaluated with rest and on morning rounds. He has good bowel sounds and has passed flatus. Nasogastric tube drainage is still high however. We will place a nasogastric tube to King bag and try and get this out later today if the volumes remain low. He is progressing well. Jesús Bruce MD FACS
[2017-10-03] MEDS: *HR* Metoprolol 5 MG/5 ML VIAL IVP SCH ×4 (05:19→23:52)
[2017-10-03] MEDS: *HR* Heparin 5,000 UNIT/ML VIAL SQ SCH ×2 (05:19→18:16)
[2017-10-03] MEDS: Piperacillin/Tazobactam 3.375 GM in 0.9 % Sodium Chloride Mini Bag 100 ML IVPB SCH ×3 (08:15→23:51)
[2017-10-03] MEDS: OXYCODONE Oral CONC 10 MG/0.5 ML ORAL.SYG SL PRN ×2 (08:44→15:30)
[2017-10-03 09:06] LABS: BUN/Creatinine Ratio 35 (6-26); Blood Urea Nitrogen 19 mg/dL (6-20); Calcium 8.8 mg/dL (8.6-10.3); Carbon Dioxide 27 mEq/L (23-29); Chloride 102 mEq/L (98-107); Glucose 108 mg/dL (70-105); Magnesium 1.9 mg/dL (1.6-2.6); Osmolality,Calculated 289 (280-300); Phosphorous 3.9 mg/dL (2.7-4.5); Potassium 3.4 mEq/L (3.5-5.1); Sodium 138 mEq/L (136-145); Triglycerides 134 mg/dL (< 150); eGFR For African Americans > 60 (> 60); eGFR For Non-African Americans > 60 (> 60)
--- NOTE | 2017-10-03 10:55 | General Surgery Progress Note ---
Date of Encounter: 10/03/17 Time of Encounter: 10:30 - Assessment and Plan (1) Anastomotic leak of intestine Current Visit: Yes Status: Acute Date of procedure: 09/29/17 Pre-op diagnosis: Perforated viscus Post-op diagnosis: same Procedure: Exploratory Laparotomy with resection of ileocolic anastomosis and a side to side, functional end to end anastomosis. Anesthesia: DARENA Surgeon: Samson Ly POD #4 as above. Patient reports bowel movement this a.m. of" nothing but liquid," and states that his abdominal discomfort is well controlled. Noted that patient refused fentanyl patch on the weekend. He is drowsy on my assessment today. Per the bedside RN, he was in the chair for approximately one hour this a.m. but was unable to remain awake while seated in the chair. He was therefore put back in bed. His abdomen is mildly distended. His bowel sounds are hypoactive and faint at best. And acute abdominal series was obtained which showed continued postoperative ileus. For this reason, we will not advances diet today. Plan: -continue supportive care and discomfort management while awaiting return of bowel function -Will adjust his pain medication so that he is not overly sedated stop fentanyl patch since refused and Roxinal since not used, restart IV Ofirmev and Toradol in an effort to decrease narcotic use for bowel function -May have 300 ML's clear liquid entres. May have ice chips in between. -Out of bed to chair for all trays -ambulate in halls at least 3 times daily. May clamp IV for 30 minutes to ambulate. -Shower daily. May clamp IV for 30 minutes shower. -Continue SANDRA daily dressing changes. Do not let the SANDRA drain Stangl from the body when up ambulating or showering. Suspend from Adalberto ureter clamped clothing. -Aggressive pulmonary toileting. Incentive spirometry every hour while awake. -Continue G.I. and DVT prophylaxis (2) Alteration in bowel elimination due to postoperative ileus Current Visit: Yes Status: Acute will not advance diet at this time d/t postopearitve ileus. Will avoid aggressive stimulation of bowel function given anastomotic leak, but will add stool softener given narcotic pain control and decreased activity. (3) Obesity Current Visit: Yes Status: Chronic Patient a short of breath at rest. He states this is not outside his norm. Will also decrease his pain medication as he appears overly sedated today. Qualifiers: Obesity type: due to excess calories Obesity classification: unspecified obesity classification Serious obesity comorbidity presence: unspecified whether serious comorbidity present Qualified Code(s): E66.09 - Other obesity due to excess calories Subjective Patient reports: no new complaints, still having pain, pain is less, voiding w/ o difficulty, flatus, bowel movement (reports liquid bm this am) Narrative: Jonathan states his abdominal discomfort is well controlled, denies nausea or vomiting, reports a liquid stool this a.m. Objective Vital Signs - Last 8 Hours Temp Pulse Resp BP Pulse Ox 10/03/17 07:23 97.6 F 114 17 132/83 93 10/03/17 04:33 100.3 F H 113 17 153/82 91 Intake and Output 10/02/17 10/03/17 10/03/17 23:59 07:59 15:59 Intake Total 100 / 100 100 / 100 240 / 240 Output Total 1675 / 1675 678 / 678 Balance -1575 / -1575 -578 / -578 240 / 240 Intake: IV Fluids 100 / 100 100 / 100 Zosyn 3.375 GM In 0.9 % Sodium 100 / 100 100 / 100 Chloride (Mini-Bag +) 100 ML @ 25 mls/hr IVPB Q8HR [facility] Rx#: [id number] Oral 240 / 240 Output: Urine 350 / 350 660 / 660 Gastric Tube Lavage Amount 10 Left Nare Catheter 400 / 400 Gastric Drainage 900 / 900 Wound Drainage Left 10 10 10 10 Right 5 Other: Meal Breakfast Percent of Meal Consumed 100% Stool Size Large Stool Consistency liquid Stool Color Brown # Bowel Movements 1 Weight 139.706 kg Blood Glucose* 115 123 Patient Weight 10/03/17 23:59 Weight 139.706 kg VITAL SIGNS: Reviewed. See [facility] GENERAL: In no apparent distress. HEENT: Normocephalic, atraumatic, pupils are equal and reactive, extraocular motions intact, oropharynx is pink and moist, there is no neck adenopathy or JVD noted. CHEST/RESPIRATORY: The thorax is free from signs of trauma. Lung sounds: clear to auscultation, normal respiratory effort CARDIAC: Regular rate and rhythm. Normal S1 and S2, without murmurs, gallops, or rubs. VASCULAR: No Edema. 2+ peripheral pulses. ABDOMEN: soft, expected postoperative tenderness, mild distention, hypoactive and faint at best bowel sounds. INCISION: Surgical incision is clean, dry, and intact. There are no signs of cellulitis or infection noted. WOUNDS/DRAINS: left lower quadrant with cloudy foul-smelling drainage. Right lower quadrant with small amount of SS drainage MUSCULOSKELETAL: Good range of motion of all major joints. Extremities without clubbing, cyanosis or edema. NEUROLOGIC EXAM: Drowsy and oriented x 3. Speech normal. Follows commands. PSYCHIATRIC: Mood normal. SKIN: No rash or lesions. - Labs 10/02/17 08:40 10/03/17 04:00 Diabetes panel 10/03/17 Range/Units 04:00 Sodium 138 (136-145) mEq/L Potassium 3.4 L (3.5-5.1) mEq/L Chloride 102 (98-107) mEq/L Carbon Dioxide 27 (23-29) mEq/L BUN 19 (6-20) mg/dL Creatinine 0.55 L (0.70-1.30) mg/dL Glucose 108 H (70-105) mg/dL Calcium 8.8 (8.6-10.3) mg/dL Triglycerides 134 (< 150) mg/dL Calcium panel 10/03/17 Range/Units 04:00 Calcium 8.8 (8.6-10.3) mg/dL Phosphorus 3.9 (2.7-4.5) mg/dL Pituitary panel 10/03/17 Range/Units 04:00 Sodium 138 (136-145) mEq/L Potassium 3.4 L (3.5-5.1) mEq/L Chloride 102 (98-107) mEq/L Carbon Dioxide 27 (23-29) mEq/L BUN 19 (6-20) mg/dL Creatinine 0.55 L (0.70-1.30) mg/dL Glucose 108 H (70-105) mg/dL Calcium 8.8 (8.6-10.3) mg/dL Adrenal panel 10/03/17 Range/Units 04:00 Sodium 138 (136-145) mEq/L Potassium 3.4 L (3.5-5.1) mEq/L Chloride 102 (98-107) mEq/L Carbon Dioxide 27 (23-29) mEq/L BUN 19 (6-20) mg/dL Creatinine 0.55 L (0.70-1.30) mg/dL Glucose 108 H (70-105) mg/dL Calcium 8.8 (8.6-10.3) mg/dL - VTE Documentation of Mechanical Device: Intermittent pneumatic compression device Consult Discharge Plan - Plan Referrals: Meg Venegas, AUDREY [Primary Care Provider] -
[2017-10-03] MEDS: Acetaminophen IV 1,000 MG/100 ML INFUS..BTL IVPB SCH ×2 (15:29→21:33)
[2017-10-03] MEDS ORDERED: Clinimix E 5%-15% SOLUTION 2,000 ML, Parenteral Amino Acid 10% 200 ML with MVI, adult ... IVC SCH (17:00)
[2017-10-03] MEDS: Ketorolac 15 MG/ML VIAL IVP SCH ×2 (18:15→23:51)
[2017-10-04] MEDS: Acetaminophen IV 1,000 MG/100 ML INFUS..BTL IVPB SCH ×4 (02:53→20:17)
[2017-10-04 03:27] LABS: Basophils % 0.2 %; Eosinophils # 0.3 K/mcL (0.0-0.6); Eosinophils % 2.6 %; Hematocrit 26.6 % (37.5-50.1); Hemoglobin 7.6 g/dL (12.9-16.9); Immature Granulocytes % 1.6 % (0-4); Lymphocytes # 1.3 K/mcL (0.6-4.6); Lymphocytes % 11.4 %; Mean Corpuscular HGB Conc 28.6 g/dL (31.6-35.5); Mean Corpuscular Hemoglobin 20.2 pg (28.0-33.3); Mean Corpuscular Volume 70.7 fL (83.0-100.0); Mean Platelet Volume 9.7 fL (9.4-12.4); Monocytes # 1.3 K/mcL (0.0-1.3); Monocytes % 11.9 %; Nucleated Red Blood Cells 0.2 /100 WBC (0); Platelet Count 482 K/mcL (140-400); Red Blood Count 3.76 M/mcL (4.19-5.50); Red Cell Distribution Width 21.9 % (11.5-14.5); Segmented Neutrophils % 72.3 %
[2017-10-04 03:37] LABS: Hypochromasia Present (Not Present); Platelet Estimate Normal (Normal)
[2017-10-04 03:47] LABS: BUN/Creatinine Ratio 36 (6-26); Blood Urea Nitrogen 20 mg/dL (6-20); Calcium 8.7 mg/dL (8.6-10.3); Carbon Dioxide 25 mEq/L (23-29); Chloride 102 mEq/L (98-107); Glucose 111 mg/dL (70-105); Magnesium 2.1 mg/dL (1.6-2.6); Osmolality,Calculated 287 (280-300); Phosphorous 4.2 mg/dL (2.7-4.5); Potassium 3.1 mEq/L (3.5-5.1); Sodium 137 mEq/L (136-145); eGFR For African Americans > 60 (> 60); eGFR For Non-African Americans > 60 (> 60)
[2017-10-04] MEDS: *HR* Metoprolol 5 MG/5 ML VIAL IVP SCH ×4 (05:23→23:57)
[2017-10-04] MEDS: Ketorolac 15 MG/ML VIAL IVP SCH ×4 (05:23→23:57)
[2017-10-04] MEDS: *HR* Heparin 5,000 UNIT/ML VIAL SQ SCH ×2 (05:23→18:22)
[2017-10-04] MEDS: Piperacillin/Tazobactam 3.375 GM in 0.9 % Sodium Chloride Mini Bag 100 ML IVPB SCH ×3 (08:54→23:57)
[2017-10-04] MEDS ORDERED: Potassium Chloride 40 MEQ, Lidocaine 1% 2 ML in D5% in Water 500 ML IVPB ONE (09:58)
[2017-10-04] MEDS: Chloraseptic Spray 177 ML BOTTLE MM PRN (10:45)
[2017-10-04] MEDS: *HR* LORazepam 2 MG/ML VIAL IVP SCH ×2 (16:56→23:57)
[2017-10-04] MEDS ORDERED: Clinimix E 5%-15% SOLUTION 2,000 ML, Parenteral Amino Acid 10% 200 ML with MVI, adult ... IVC SCH (17:00)
[2017-10-05] MEDS: Acetaminophen IV 1,000 MG/100 ML INFUS..BTL IVPB SCH ×2 (01:50→07:54)
[2017-10-05] MEDS: Ketorolac 15 MG/ML VIAL IVP SCH ×3 (06:10→17:26)
[2017-10-05] MEDS: *HR* Heparin 5,000 UNIT/ML VIAL SQ SCH ×2 (06:11→17:26)
[2017-10-05] MEDS: *HR* Metoprolol 5 MG/5 ML VIAL IVP SCH ×2 (06:11→12:10)
[2017-10-05 06:54] LABS: BUN/Creatinine Ratio 26 (6-26); Blood Urea Nitrogen 15 mg/dL (6-20); Calcium 8.6 mg/dL (8.6-10.3); Carbon Dioxide 25 mEq/L (23-29); Chloride 104 mEq/L (98-107); Glucose 109 mg/dL (70-105); Osmolality,Calculated 285 (280-300); Phosphorous 3.4 mg/dL (2.7-4.5); Potassium 3.5 mEq/L (3.5-5.1); Sodium 137 mEq/L (136-145); eGFR For African Americans > 60 (> 60); eGFR For Non-African Americans > 60 (> 60)
[2017-10-05] MEDS: *HR* LORazepam 2 MG/ML VIAL IVP SCH ×2 (07:53→15:53)
[2017-10-05] MEDS: Piperacillin/Tazobactam 3.375 GM in 0.9 % Sodium Chloride Mini Bag 100 ML IVPB SCH ×2 (07:55→15:53)
--- NOTE | 2017-10-05 13:56 | General Surgery Progress Note ---
Date of Encounter: 10/05/17 Time of Encounter: 13:40 - Assessment and Plan (1) Anastomotic leak of intestine Current Visit: Yes Status: Acute POD #7 Exploratory Laparotomy, Robotic Sigmoid colectomy with takedown of splenic flexure and a 29 mm EEA stapling with Dr. Ly Pathology- - Enterocolic anastomosis. - Serositis and fat necrosis involving colon, small intestine and omentum. Pathology from initial colon resection- poorly differentiated adenocarcinoma invading through pericolonic fat, margins negative, node positive 4 of 18; liver biopsy benign Advance to full liquids today- patient refuses protein supplements PICC line Wean TPN therapy today IV antibiotics- Zosyn Daily dressing changes Maintain SANDRA drains X 2 Supportive care and pain control Incentive spirometer every 1 hour while awake GI prophylaxis Out of bed to chair and ambulate hallways 3 times a day with assistance (2) Metastatic colon cancer to liver Current Visit: No Status: Acute Postoperative day #14 from a Robotic Right colectomy; liver biopsy and Aport placement with Dr. Ly Oncology following Pathology- poorly differentiated adenocarcinoma invading through pericolonic fat, margins negative, node positive 4 of 18; liver biopsy benign (3) Hypertension Current Visit: Yes Status: Chronic Add Atenolol and Chlorthalidone (patient states that this has worked well for him in the past at home) We will continue to monitor and treat as necessary Qualifiers: Hypertension type: essential hypertension Qualified Code(s): I10 - Essential (primary) hypertension (4) Obesity Current Visit: Yes Status: Chronic Qualifiers: Obesity type: due to excess calories Obesity classification: unspecified obesity classification Serious obesity comorbidity presence: unspecified whether serious comorbidity present Qualified Code(s): E66.09 - Other obesity due to excess calories (5) DVT prophylaxis Current Visit: Yes Status: Acute Heparin 5000 units subcutaneous twice daily EPCDs to bilateral lower extremities for DVT prophylaxis Out of bed to chair and ambulating hallways 3 times a day with assistance Subjective Patient reports: no new complaints, feels better, still having pain, pain is less, tolerating liquids well (does not like clear liquids or protein supplements; tolerated ice cream), voiding w/o difficulty, flatus, bowel movement, fever (Tmax 99.8 at 0630 this am; Tcurrent 99) Objective Vital Signs - Last 8 Hours Temp Pulse Resp BP Pulse Ox 10/05/17 12:12 99 F 110 18 147/87 96 10/05/17 10:40 98.4 F 105 18 145/87 96 10/05/17 08:20 112 10/05/17 06:37 99.8 F H 131 14 161/93 97 Intake and Output 10/04/17 10/05/17 10/05/17 23:59 07:59 15:59 Intake Total 3484 / 3484 1108 / 1108 955 / 955 Output Total 710 / 710 500 / 500 Balance 2774 / 2774 1108 / 1108 455 / 455 Intake: IV Fluids 3484 / 3484 868 / 868 595 / 595 Clinimix E 5%-15% SOLUTION 2, 2642 / 2642 660 / 660 395 / 395 000 ML Travasol 10% 200 ML @ 91 .6 mls/hr IVC .Q24H [facility] with M. v.i. Adult 10 ml Rx#:[id number] Ofirmev 1,000 mg/100 ml 1,000 100 / 100 100 / 100 mg In 100 ml @ 400 mls/hr IVPB Q6H [facility] Rx#:[id number] Intralipid 20% 250 ML @ 21 mls/ 142 / 142 108 / 108 hr IVPB DAILY@1700 [facility] Rx#: [id number] Zosyn 3.375 GM In 0.9 % Sodium 100 / 100 100 / 100 100 / 100 Chloride (Mini-Bag +) 100 ML @ 25 mls/hr IVPB Q8HR [facility] Rx#: [id number] KCl 40 MEQ Xylocaine 2 ML In 500 / 500 Dextrose 5% 500 ML @ 130.5 mls/ hr IVPB ONCE ONE Rx#:[id number] Oral 0 / 0 240 / 240 360 / 360 Output: Urine 700 / 700 500 / 500 Wound Drainage 10 / 10 Left 10 / 10 Other: Meal Clears Percent of Meal Consumed 0% Stool Size Moderate Stool Consistency liquid soft Stool Color Brown # Voids 0 # Bowel Movements 0 1 Blood Glucose* 121 108 120 - General physical appearance well developed, well nourished, no distress, obese - Eyes normal ocular movement - ENT normal mucosa, atraumatic, normocephalic - Neck Neck exam: trachea midline - Respiratory normal respiratory effort, clear to auscultation - Cardiovascular Cardiovascular exam: Present: tachycardia - Abdomen Abdomen: Present: bowel sounds present, soft, tender (minimal, expected post- operative tenderness), wound (LLQ SANDRA drain in subcutaneous space with purulent, foul smelling drainage noted; RLQ SANDRA drain with serous drainage noted) - Neurologic CN 2-12 grossly intact - Psychiatric oriented to time, oriented to person, oriented to place, speech is normal, memory intact - Labs 10/04/17 03:10 10/05/17 04:00 Diabetes panel 10/05/17 Range/Units 04:00 Sodium 137 (136-145) mEq/L Potassium 3.5 (3.5-5.1) mEq/L Chloride 104 (98-107) mEq/L Carbon Dioxide 25 (23-29) mEq/L BUN 15 (6-20) mg/dL Creatinine 0.57 L (0.70-1.30) mg/dL Glucose 109 H (70-105) mg/dL Calcium 8.6 (8.6-10.3) mg/dL Calcium panel 10/05/17 Range/Units 04:00 Calcium 8.6 (8.6-10.3) mg/dL Phosphorus 3.4 (2.7-4.5) mg/dL Pituitary panel 10/05/17 Range/Units 04:00 Sodium 137 (136-145) mEq/L Potassium 3.5 (3.5-5.1) mEq/L Chloride 104 (98-107) mEq/L Carbon Dioxide 25 (23-29) mEq/L BUN 15 (6-20) mg/dL Creatinine 0.57 L (0.70-1.30) mg/dL Glucose 109 H (70-105) mg/dL Calcium 8.6 (8.6-10.3) mg/dL Adrenal panel 10/05/17 Range/Units 04:00 Sodium 137 (136-145) mEq/L Potassium 3.5 (3.5-5.1) mEq/L Chloride 104 (98-107) mEq/L Carbon Dioxide 25 (23-29) mEq/L BUN 15 (6-20) mg/dL Creatinine 0.57 L (0.70-1.30) mg/dL Glucose 109 H (70-105) mg/dL Calcium 8.6 (8.6-10.3) mg/dL - VTE Documentation of Mechanical Device: Intermittent pneumatic compression device Consult Discharge Plan - Plan Referrals: Meg Venegas, DUAL RATE SUPERVISOR [Primary Care Provider] - 10/11/17 9:15 am - Attending Attestation For this encounter, I have reviewed the LIPSTICK MOLDER or PA documentation, treatment plan, and medical decision making; and I have had face to face time with this patient.
--- NOTE | 2017-10-05 14:06 | General Surgery Progress Note ---
Date of Encounter: 10/04/17 Time of Encounter: 13:30 - Assessment and Plan (1) Anastomotic leak of intestine Current Visit: Yes Status: Acute POD #6 Exploratory Laparotomy, Robotic Sigmoid colectomy with takedown of splenic flexure and a 29 mm EEA stapling with Dr. Ly Pathology- - Enterocolic anastomosis. - Serositis and fat necrosis involving colon, small intestine and omentum. Pathology from initial colon resection- poorly differentiated adenocarcinoma invading through pericolonic fat, margins negative, node positive 4 of 18; liver biopsy benign Clear liquid diet and protein supplements today PICC line Continue TPN at goal IV antibiotics- Zosyn Daily dressing changes Maintain SANDRA drains X 2 Supportive care and pain control Incentive spirometer every 1 hour while awake GI prophylaxis Out of bed to chair and ambulate hallways 3 times a day with assistance Repeat am labs- bmp (2) Metastatic colon cancer to liver Current Visit: No Status: Acute Postoperative day #13 from a Robotic Right colectomy; liver biopsy and Aport placement with Dr. Ly Oncology following Pathology- poorly differentiated adenocarcinoma invading through pericolonic fat, margins negative, node positive 4 of 18; liver biopsy benign (3) Hypertension Current Visit: Yes Status: Chronic We will continue to monitor and treat as necessary Qualifiers: Hypertension type: essential hypertension Qualified Code(s): I10 - Essential (primary) hypertension (4) Obesity Current Visit: Yes Status: Chronic Qualifiers: Obesity type: due to excess calories Obesity classification: unspecified obesity classification Serious obesity comorbidity presence: unspecified whether serious comorbidity present Qualified Code(s): E66.09 - Other obesity due to excess calories (5) DVT prophylaxis Current Visit: Yes Status: Acute Heparin 5000 units subcutaneous twice daily EPCDs to bilateral lower extremities for DVT prophylaxis Out of bed to chair and ambulating hallways 3 times a day with assistance Subjective Patient reports: feels better, still having pain, pain is less, voiding w/o difficulty, flatus, bowel movement, afebrile, other (Patient feels anxious and verbalized being very unhappy with his nursing care.) Objective Vital Signs - Last 8 Hours Temp Pulse Resp BP Pulse Ox 10/05/17 12:12 99 F 110 18 147/87 96 10/05/17 10:40 98.4 F 105 18 145/87 96 10/05/17 08:20 112 10/05/17 06:37 99.8 F H 131 14 161/93 97 Intake and Output 10/04/17 10/05/17 10/05/17 23:59 07:59 15:59 Intake Total 3484 / 3484 1108 / 1108 955 / 955 Output Total 710 / 710 500 / 500 Balance 2774 / 2774 1108 / 1108 455 / 455 Intake: IV Fluids 3484 / 3484 868 / 868 595 / 595 Clinimix E 5%-15% SOLUTION 2, 2642 / 2642 660 / 660 395 / 395 000 ML Travasol 10% 200 ML @ 91 .6 mls/hr IVC .Q24H [facility] with M. v.i. Adult 10 ml Rx#:[id number] Ofirmev 1,000 mg/100 ml 1,000 100 / 100 100 / 100 mg In 100 ml @ 400 mls/hr IVPB Q6H [facility] Rx#:[id number] Intralipid 20% 250 ML @ 21 mls/ 142 / 142 108 / 108 hr IVPB DAILY@1700 [facility] Rx#: [id number] Zosyn 3.375 GM In 0.9 % Sodium 100 / 100 100 / 100 100 / 100 Chloride (Mini-Bag +) 100 ML @ 25 mls/hr IVPB Q8HR [facility] Rx#: [id number] KCl 40 MEQ Xylocaine 2 ML In 500 / 500 Dextrose 5% 500 ML @ 130.5 mls/ hr IVPB ONCE ONE Rx#:[id number] Oral 0 / 0 240 / 240 360 / 360 Output: Urine 700 / 700 500 / 500 Wound Drainage 10 / 10 Left 10 / 10 Other: Meal Clears Percent of Meal Consumed 0% Stool Size Moderate Stool Consistency liquid soft Stool Color Brown # Voids 0 # Bowel Movements 0 1 Blood Glucose* 121 108 120 - General physical appearance well developed, well nourished, no distress - Eyes normal ocular movement - ENT normal mucosa, atraumatic, normocephalic - Neck Neck exam: trachea midline - Respiratory normal respiratory effort, clear to auscultation - Cardiovascular Cardiovascular exam: Present: tachycardia - Abdomen Abdomen: Present: bowel sounds present, soft, tender (Postoperative tenderness) , wound (left lower quadrant with cloudy foul-smelling drainage. Right lower quadrant with small amount of serousang. drainage) - Incision Incision: Present: clean and dry, intact - Neurologic CN 2-12 grossly intact - Psychiatric oriented to time, oriented to person, oriented to place, speech is normal, memory intact - Labs 10/04/17 03:10 10/05/17 04:00 Diabetes panel 10/05/17 Range/Units 04:00 Sodium 137 (136-145) mEq/L Potassium 3.5 (3.5-5.1) mEq/L Chloride 104 (98-107) mEq/L Carbon Dioxide 25 (23-29) mEq/L BUN 15 (6-20) mg/dL Creatinine 0.57 L (0.70-1.30) mg/dL Glucose 109 H (70-105) mg/dL Calcium 8.6 (8.6-10.3) mg/dL Calcium panel 10/05/17 Range/Units 04:00 Calcium 8.6 (8.6-10.3) mg/dL Phosphorus 3.4 (2.7-4.5) mg/dL Pituitary panel 10/05/17 Range/Units 04:00 Sodium 137 (136-145) mEq/L Potassium 3.5 (3.5-5.1) mEq/L Chloride 104 (98-107) mEq/L Carbon Dioxide 25 (23-29) mEq/L BUN 15 (6-20) mg/dL Creatinine 0.57 L (0.70-1.30) mg/dL Glucose 109 H (70-105) mg/dL Calcium 8.6 (8.6-10.3) mg/dL Adrenal panel 10/05/17 Range/Units 04:00 Sodium 137 (136-145) mEq/L Potassium 3.5 (3.5-5.1) mEq/L Chloride 104 (98-107) mEq/L Carbon Dioxide 25 (23-29) mEq/L BUN 15 (6-20) mg/dL Creatinine 0.57 L (0.70-1.30) mg/dL Glucose 109 H (70-105) mg/dL Calcium 8.6 (8.6-10.3) mg/dL - VTE Documentation of Mechanical Device: Intermittent pneumatic compression device Consult Discharge Plan - Plan Referrals: Meg Venegas, AUDREY [Primary Care Provider] - 10/11/17 9:15 am - Attending Attestation For this encounter, I have reviewed the IRON WORKER FOREMAN or PA documentation, treatment plan, and medical decision making; and I have had face to face time with this patient.
[2017-10-05] MEDS ORDERED: Fluconazole 200 MG/100 ML 200 MG/100 ML BAG IVPB ONE (15:45)
[2017-10-06] MEDS: *HR* LORazepam 2 MG/ML VIAL IVP SCH ×3 (01:23→15:14)
[2017-10-06] MEDS: Piperacillin/Tazobactam 3.375 GM in 0.9 % Sodium Chloride Mini Bag 100 ML IVPB SCH ×3 (01:24→15:16)
[2017-10-06] MEDS: *HR* Heparin 5,000 UNIT/ML VIAL SQ SCH ×2 (06:38→20:05)
[2017-10-06] MEDS ORDERED: Fluconazole 100 MG/50 ML 100 MG/50 ML BAG IVPB SCH (09:00)
--- NOTE | 2017-10-06 09:57 | Discharge Summary ---
Date of Encounter: 10/06/17 Time of Encounter: 08:00 - Discharge Diagnosis (1) Anastomotic leak of intestine Priority: Primary Status: Acute (2) Alteration in bowel elimination due to postoperative ileus Priority: Primary Status: Acute (3) Obesity Priority: Secondary Status: Chronic Qualifiers: Obesity type: due to excess calories Obesity classification: unspecified obesity classification Serious obesity comorbidity presence: unspecified whether serious comorbidity present Qualified Code(s): E66.09 - Other obesity due to excess calories (4) Adenocarcinoma Priority: Secondary Status: Acute General Surgery Exam Initial Vital Signs Temp Pulse Resp BP Pulse Ox 97.7 F 101 18 130/81 96 09/28/17 20:35 09/28/17 20:35 09/28/17 20:35 09/28/17 20:35 09/28/17 20:35 VITAL SIGNS: Reviewed. See [facility] GENERAL: In no apparent distress. HEENT: Normocephalic, atraumatic, pupils are equal and reactive, extraocular motions intact, oropharynx is pink and moist, there is no neck adenopathy or JVD noted. CHEST/RESPIRATORY: The thorax is free from signs of trauma. Slightly labored respirations at rest, patient states the services norm when lying back. Lung sounds: clear to auscultation, normal respiratory effort CARDIAC: Regular rate and rhythm. Normal S1 and S2, without murmurs, gallops, or rubs. VASCULAR: No Edema. 2+ peripheral pulses. ABDOMEN: soft, nontender, active bowel sounds in all 4 quadrants. INCISION: Surgical incision is clean, dry, and intact. There are no signs of cellulitis or infection noted. WOUNDS/DRAINS: right lower quadrant SANDRA with small amount of serous output, this drain was DC'd today. Midline SANDRA with moderate amount of foul-smelling output. MUSCULOSKELETAL: Good range of motion of all major joints. Extremities without clubbing, cyanosis or edema. NEUROLOGIC EXAM: Alert and oriented x 3. Speech normal. Follows commands. PSYCHIATRIC: Mood normal. SKIN: No rash or lesions. - Hospital Course Hospital course: Mr. Maria is a 42 year old male who presented on 09/29/2017 and had a significant medical history for colon cancer. He was recently underwent a robotic right colectomy and liver biopsy as well as in a port placement on [address] Ly. He was discharged home on 09/25/2017 and re-presented on the for increasing abdominal pain over the last 24 hours and heart racing. His CT scan showed concern for free air and and anastomotic leak and he was therefore taken to the operating room where he underwent an exploratory laparotomy with resection of ileocolic anastomosis and a side to side functional end-to-end to end anastomosis. He did develop a postoperative ileus and was treated conservatively. He is tolerating a full liquid diet without nausea or vomiting, having bowel movements, vital signs are stable, discomfort is well-controlled, and he is afebrile. We will begin discharge planning to home with a follow-up in the office in one week for a drain check. - Time Spent with Patient Total time spent providing and/or coordinating discharge services: - Discharge Medications Prescriptions: Amoxicillin/Clavulanate [Augmentin] 875 mg PO BIDWM #20 tablet Fluconazole [Diflucan] 100 mg PO DAILY #5 tablet OxyCODONE/APAP 5/325 [Percocet 5/325 MG] 1 tab PO Q6H PRN 7 Days #28 tablet PRN Reason: Postoperative pain Polyethylene Glycol 3350 [MiraLAX] 17 gm PO DAILY PRN #30 powd.pack PRN Reason: Constipation Home Medications: Ferrous Sulfate [Iron] 325 mg PO DAILY 09/16/17 [History] Metoprolol Tartrate 100 mg PO BID 09/16/17 [History] Amoxicillin/Clavulanate [Augmentin] 875 mg PO BIDWM #20 tablet 10/06/17 [Rx] Fluconazole [Diflucan] 100 mg PO DAILY #5 tablet 10/06/17 [Rx] OxyCODONE/APAP 5/325 [Percocet 5/325 MG] 1 tab PO Q6H PRN 7 Days #28 tablet [Rx] Polyethylene Glycol 3350 [MiraLAX] 17 gm PO DAILY PRN #30 powd.pack 10/06/17 [Rx ] Allergies/Adverse Reactions: 3 Allergy/AdvReac Type Severity Reaction Status Date / Time No Known Allergies Allergy Verified 09/28/17 20:35 Date of admission: 09/29/17 10:43 Primary care physician: Meg Venegas CNP Consults: 10/03/17 14:08 Consult to Respiratory Therapy [CONS] Routine Reason for Consult: Aggressive pulmonary toileting Time Notified: 14:08 Call Completed: No Discharging clinician: Samson yL (Lalito Reyes) Anticipated date of discharge: 10/06/17 Labs on day of discharge: Labs from last 24 hours 10/05/17 10/05/17 10/05/17 19:15 15:49 12:03 POC Glucose 107 H 112 H 120 H 10/04/17 10/04/17 11:38 07:20 POC Glucose 143 H 125 H - Impressions ITS Impressions Abdomen/Pelvis CT 09/29/17 22:43 IMPRESSION: Postoperative changes of right colectomy with ileal colic anastomosis in the right lower quadrant. Small volume of pneumoperitoneum, free fluid, and mesenteric edema could be related to recent surgery. Mild diffuse distention of the small bowel without transition point noted. Findings are favored to be related to ileus. Gas within the left body wall and scrotum are likely related to recent surgery as well. Multiple hypodense hepatic lesions, concerning for metastatic disease. Bibasilar atelectasis. Findings were discussed with Dr. Henrik Liz at 12:55 am on 09/29/2017. D/ / 09/29/2017 07:32:55 Flavio Horowitz MD / judith Interpreting Provider: Flavio Horowitz MD X-Ray 10/01/17 07:47 IMPRESSION: NG tube present with side-port and distal tip in the gastric fundus. D/ / 10/01/2017 09:34:51 Mauri Silva MD / Roz Maravilla Interpreting Provider: Mauri Silva MD Abdomen X-Ray 10/03/17 10:52 IMPRESSION: Air-filled dilated loops of bowel within the abdomen with a small amount of gas in the colon. Findings could reflect a postoperative ileus versus small-bowel obstruction. D/ / 10/03/2017 12:39:22 Mare Mckeon MD / judith Interpreting Provider: Mare Mckeon MD - Patient Status Disposition: Home, Self-Care Condition: Good Functional capacity at discharge: independent ambulation Overall status at discharge: patient is progressing back to baseline - Discharge Instructions Instructions: Jerry-Velásquez Drain Care (DC), Colectomy (DC) Follow Up With: Meg Venegas CNP [Primary Care Provider] - 10/11/17 9:15 am Radha Baker CNP [Advanced Practice Nurse] - 10/13/17 8:45 am Jayden Galvin MD [Partnered Physician] - (2 weeks) Additional Instructions: General Surgical Discharge Instructions 1. No pushing, pulling, or lifting greater than 15 lbs for 4 weeks (depending upon procedure). 2. You may shower beginning today, but no tub baths, soaking, or swimming for 2 weeks. 3. You may resume driving when you are off narcotics and are safe to react in a car. 4. Take ibuprofen every 8 hours for discomfort. If this does not relieve discomfort, you may take the as needed Percocet. Take narcotics as directed. Do not take more narcotics then directed and do not share your narcotics with any other person. Do not drink alcohol while on narcotics. 5. Take stool softeners (Colace) or a water based laxative (Miralax) while taking narcotics. You may hold for loose stools. 6. Report any fevers greater than 100.5F, increase abdominal discomfort, drainage that looks like pus, increased redness or pain at the surgical site, or any vomiting. 7. Report any pain in the calves, shortness of breath, or rapid heartbeat. 8. Follow-up in the office as directed. 9. If you were prescribed antibiotics, do not stop them without talking to your provider. 10. Do not let the SANDRA drain dangle from your body. Safety pin the drain to your clothing when you're up and about. Suspended drain on a lanyard or other such necklace when you shower. 11. SANDRA wound care: remove dressing's. Shower daily with antibacterial soap. Replace split gauze dressing and tape to secure. Empty the drainage in your SANDRA at least daily and record this on the form provided to you. She drip the SANDRA drain line twice-daily. Drink at least 3 protein supplements every day. This is vital for ensuring you are getting enough nutrition so that your body can heal. - Diet and Activity Activity: increase activity as tolerated Diet: other (Low fiber diet. Drink at least 3 protein supplements every day.)
[2017-10-06] MEDS ORDERED: *HR* OxyCODONE/APAP 5/325 TABLET PO ONE (13:44)
[2017-10-06] MEDS ORDERED: Acetaminophen IV 1,000 MG/100 ML INFUS..BTL IVPB ONE (14:14)
--- NOTE | 2017-10-06 14:14 | Event Note ---
Date of Encounter: 10/06/17 Time of Encounter: 14:10 Patient seen in evaluated this morning and was set for discharge. He was able to get up and take a shower this morning with assistance from the RN. The RN went in this afternoon to obtain a set of vitals for discharge and noted the patient was shaking and stated he felt fevered. She noted a temperature of 101.7. Patient states he feels short of breath but other than that denies any changes in his abdominal discomfort, denies urinary signs or symptoms, but does endorse increase in left mid back pain. Discharge has been canceled and we will begin work up to identify etiology of his temperature. Place patient on pulse oximetry, 2 L nasal cannula, laboratory monitor, obtained CBC, UA, chest x- ray, CTA of the chest, and CT of the abdomen and pelvis with contrast. Reviewed with Dr. Ly.
[2017-10-06] MEDS ORDERED: 0.9 % Sodium Chloride 1,000 ML IVC SCH (14:15)
[2017-10-06] MEDS ORDERED: MetroNIDAZOLE 500 MG/100 ML 500 MG/100 ML BAG IVPB SCH (16:00)
--- NOTE | 2017-10-06 16:05 | General Surgery Progress Note ---
Date of Encounter: 10/06/17 Time of Encounter: 07:45 - Assessment and Plan (1) Anastomotic leak of intestine Current Visit: Yes Status: Acute Date of procedure: 09/29/17 Pre-op diagnosis: Perforated viscus Post-op diagnosis: same Procedure: Exploratory Laparotomy with resection of ileocolic anastomosis and a side to side, functional end to end anastomosis. Anesthesia: DARENA Surgeon: Samson Ly POD #7 as above. Patient noted feeling "really good." This am. He was scheduled to be discharged this afternoon. The RN obtained went in to obtain d/ c vitals and noted the patient was shaking and had a temp of 101.9. The discharge was cancelled and patient worked up for fever. (see event note for further detail). CTA r/o PE and CT/abd pelvis with oral and iv contrast completed (results pending) but shows dilated stomach and loops of small bowel, CXR with left airspace disease, stopped zosyn, started levaquina nd flagyl, treated fever with IV tylenol. Upon recheck, ordered rectal temp and noted 104.8 rectal. He is diaphoretic, tachy, HR in the 120s, resp 34-40/min, and BP stable. This REWRITE EDITOR and bedside RN accompanied patient to radiology. Patient transferred to ICU. Hospitalist consulted for possible need for intubation. Plan: NPO NG to LIWS Minor fluid bolus cooling blanket for rectal temp >102 lactic acid repeat CBC as decline in hgb does not correlate with clinical picture transfuse 2units PRBCs stat, lasix in between units, benadryl if needed continue GI and DVT prophylaxis ABG bi-pap if indicated prn (2) Respiratory distress Current Visit: Yes Status: Acute See above (3) Alteration in bowel elimination due to postoperative ileus Current Visit: Yes Status: Acute See a/p above (4) Obesity Current Visit: Yes Status: Chronic Patient a short of breath at rest. He states this is not outside his norm. Will also decrease his pain medication as he appears overly sedated today. Qualifiers: Obesity type: due to excess calories Obesity classification: unspecified obesity classification Serious obesity comorbidity presence: unspecified whether serious comorbidity present Qualified Code(s): E66.09 - Other obesity due to excess calories (5) Fever Current Visit: Yes Status: Acute Etiology unclear at this time Qualifiers: Fever type: unspecified Qualified Code(s): R50.9 - Fever, unspecified (6) Adenocarcinoma Current Visit: Yes Status: Acute Subjective Patient reports: no new complaints, feels better, still having pain, pain is less, tolerating liquids well, voiding w/o difficulty, flatus, bowel movement, afebrile Objective Vital Signs - Last 8 Hours Temp Pulse Resp BP Pulse Ox 10/06/17 15:46 122 35 104/50 96 10/06/17 15:38 104.8 F H 135 35 93 10/06/17 11:08 99.8 F H 82 15 125/71 95 10/06/17 10:00 101.7 F H 120 34 154/77 94 Intake and Output 10/06/17 10/06/17 10/06/17 07:59 15:59 23:59 Intake Total 340 / 340 200 / 200 Output Total 630 / 630 350 / 350 Balance -290 / -290 -150 / -150 Intake: IV Fluids 100 / 100 200 / 200 Ofirmev 1,000 mg/100 ml 1,000 100 / 100 mg In 100 ml @ 400 mls/hr IVPB ONCE ONE Rx#:[id number] Zosyn 3.375 GM In 0.9 % Sodium 100 / 100 100 / 100 Chloride (Mini-Bag +) 100 ML @ 25 mls/hr IVPB Q8HR [facility] Rx#: [id number] Oral 240 / 240 0 / 0 Output: Urine 600 / 600 350 / 350 Wound Drainage 30 / 30 Left 20 / 20 Right 10 / 10 Other: Meal Breakfast Percent of Meal Consumed 0% Stool Size Large Stool Consistency liquid Stool Color Brown Black # Bowel Movements 2 Assessment at 0745: VITAL SIGNS: Reviewed. See [facility] GENERAL: In no apparent distress. HEENT: Normocephalic, atraumatic, pupils are equal and reactive, extraocular motions intact, oropharynx is pink and moist, there is no neck adenopathy or JVD noted. CHEST/RESPIRATORY: The thorax is free from signs of trauma. Slightly labored respirations at rest, patient states the services norm when lying back. Lung sounds: clear to auscultation, normal respiratory effort CARDIAC: Regular rate and rhythm. Normal S1 and S2, without murmurs, gallops, or rubs. VASCULAR: No Edema. 2+ peripheral pulses. ABDOMEN: soft, nontender, active bowel sounds in all 4 quadrants. INCISION: Surgical incision is clean, dry, and intact. There are no signs of cellulitis or infection noted. WOUNDS/DRAINS: right lower quadrant SANDRA with small amount of serous output, this drain was DC'd today. Midline SANDRA with moderate amount of foul-smelling output. MUSCULOSKELETAL: Good range of motion of all major joints. Extremities without clubbing, cyanosis or edema. NEUROLOGIC EXAM: Alert and oriented x 3. Speech normal. Follows commands. PSYCHIATRIC: Mood normal. SKIN: No rash or lesions. - General physical appearance severe distress - Eyes normal ocular movement - ENT atraumatic, normocephalic - Neck Neck exam: no venous distension - Respiratory other (decreased course breath sounds, tachypneic) - Cardiovascular Cardiovascular exam: Present: tachycardia - Abdomen Abdomen: Present: distended Hernia: none - Integumentary other (diaphoretic) - Neurologic normal sensation - Musculoskeletal other (labile) - Psychiatric oriented to time, oriented to person - Labs 10/06/17 14:04 10/05/17 04:00 - VTE Documentation of Mechanical Device: Intermittent pneumatic compression device Consult Discharge Plan - Plan Instructions: Jerry-Velásquez Drain Care (DC), Colectomy (DC) Additional Instructions: General Surgical Discharge Instructions 1. No pushing, pulling, or lifting greater than 15 lbs for 4 weeks (depending upon procedure). 2. You may shower beginning today, but no tub baths, soaking, or swimming for 2 weeks. 3. You may resume driving when you are off narcotics and are safe to react in a car. 4. Take ibuprofen every 8 hours for discomfort. If this does not relieve discomfort, you may take the as needed Percocet. Take narcotics as directed. Do not take more narcotics then directed and do not share your narcotics with any other person. Do not drink alcohol while on narcotics. 5. Take stool softeners (Colace) or a water based laxative (Miralax) while taking narcotics. You may hold for loose stools. 6. Report any fevers greater than 100.5F, increase abdominal discomfort, drainage that looks like pus, increased redness or pain at the surgical site, or any vomiting. 7. Report any pain in the calves, shortness of breath, or rapid heartbeat. 8. Follow-up in the office as directed. 9. If you were prescribed antibiotics, do not stop them without talking to your provider. 10. Do not let the SANDRA drain dangle from your body. Safety pin the drain to your clothing when you're up and about. Suspended drain on a lanyard or other such necklace when you shower. 11. SANDRA wound care: remove dressing's. Shower daily with antibacterial soap. Replace split gauze dressing and tape to secure. Empty the drainage in your SANDRA at least daily and record this on the form provided to you. She drip the SANDRA drain line twice-daily. Drink at least 3 protein supplements every day. This is vital for ensuring you are getting enough nutrition so that your body can heal. Referrals: Meg Venegas CNP [Primary Care Provider] - 10/11/17 9:15 am Jayden Galvin MD [Partnered Physician] - 10/28/17 10:30 am (2 weeks) Radha Baker CNP [Advanced Practice Nurse] - 10/13/17 8:45 am Prescriptions: Amoxicillin/Clavulanate [Augmentin] 875 mg PO BIDWM #20 tablet Fluconazole [Diflucan] 100 mg PO DAILY #5 tablet OxyCODONE/APAP 5/325 [Percocet 5/325 MG] 1 tab PO Q6H PRN 7 Days #28 tablet PRN Reason: Postoperative pain Polyethylene Glycol 3350 [MiraLAX] 17 gm PO DAILY PRN #30 powd.pack PRN Reason: Constipation
[2017-10-06 16:22] LABS: Basophils % 0.1 %; Mean Corpuscular Hemoglobin 20.6 pg (28.0-33.3); Monocytes % 0.4 %; Nucleated Red Blood Cells 0.4 /100 WBC (0); Red Blood Count 2.52 M/mcL (4.19-5.50); Red Cell Distribution Width 22.4 % (11.5-14.5)
[2017-10-06 16:24] LABS: Hematocrit 17.9 % (37.5-50.1); Immature Granulocytes % 0.7 % (0-4); Lymphocytes # 0.4 K/mcL (0.6-4.6); Lymphocytes % 2.2 %; Mean Corpuscular HGB Conc 29.1 g/dL (31.6-35.5); Mean Platelet Volume 9.9 fL (9.4-12.4); Monocytes # 0.1 K/mcL (0.0-1.3); Neutrophils # 15.6 K/mcL (1.6-8.9); Platelet Count 508 K/mcL (140-400); Segmented Neutrophils % 96.6 %
[2017-10-06 16:24] LABS: Bilirubin,Urine Negative (Negative); Blood,Urine Negative (Negative); Clarity,Urine Clear (Clear); Color,Urine Yellow (Yellow); Glucose,Urine (UA) Normal (Normal); Ketones,Urine Negative (Negative); Leukocyte Esterase,Urine Negative (Negative); Nitrite,Urine Negative (Negative); Protein,Urine 30 mg/dL (Neg-Trace); Specific Gravity,Urine 1.028 (1.010-1.025); Urobilinogen,Urine Normal (Normal)
[2017-10-06 16:27] LABS: Hyaline Casts,Urine Few per lpf (None-Few); Squamous Epithelial Cell,Urine Many per lpf (None-Few)
[2017-10-06 16:44] LABS: Bacteria,Urine Moderate per hpf (None-Few)
[2017-10-06 16:52] LABS: Hemoglobin 5.2 g/dL (12.9-16.9)
[2017-10-06] MEDS ORDERED: Furosemide 20 MG/2 ML VIAL IVP ONE (16:57)
[2017-10-06 17:41] LABS: Basophils % 0.1 %; Mean Platelet Volume 9.8 fL (9.4-12.4); Nucleated Red Blood Cells 0.3 /100 WBC (0)
[2017-10-06 17:42] LABS: Hematocrit 19.9 % (37.5-50.1); Immature Granulocytes % 0.6 % (0-4); Lymphocytes # 0.4 K/mcL (0.6-4.6); Lymphocytes % 1.8 %; Mean Corpuscular HGB Conc 29.6 g/dL (31.6-35.5); Mean Corpuscular Hemoglobin 20.7 pg (28.0-33.3); Mean Corpuscular Volume 69.8 fL (83.0-100.0); Monocytes # 0.1 K/mcL (0.0-1.3); Monocytes % 0.5 %; Neutrophils # 22.9 K/mcL (1.6-8.9); Platelet Count 531 K/mcL (140-400); Red Blood Count 2.85 M/mcL (4.19-5.50); Red Cell Distribution Width 22.1 % (11.5-14.5)
[2017-10-06 17:44] LABS: Hemoglobin 5.9 g/dL (12.9-16.9)
[2017-10-06 17:47] LABS: BUN/Creatinine Ratio 23 (6-26); Blood Urea Nitrogen 31 mg/dL (6-20); Calcium 8.3 mg/dL (8.6-10.3); Carbon Dioxide 19 mEq/L (23-29); Chloride 99 mEq/L (98-107); Glucose 92 mg/dL (70-105); Osmolality,Calculated 278 (280-300); Potassium 4.1 mEq/L (3.5-5.1); Sodium 131 mEq/L (136-145); eGFR For African Americans > 60 (> 60); eGFR For Non-African Americans 58 (> 60)
[2017-10-06] MEDS ORDERED: Ringers Solution, Lactated 1,000 ML IVC ONE (18:06)
[2017-10-06] MEDS ORDERED: 0.9 % Sodium Chloride 250 ML ONE ×2 (18:11→23:31)
[2017-10-06 18:31] LABS: ABG Base Excess -1 mEq/L (-2 to 3); ABG HCO3 22 mEq/L (21-27); ABG Oxygen Saturation 98 % (95-98); ABG PCO2 30 mmHg (35-45); ABG PH 7.48 pH Units (7.32-7.45); ABG PO2 88 mmHg (85-104); ABG TCO2 23 mEq/L (20-26)
--- NOTE | 2017-10-06 18:32 | Internal Med Progress Note ---
Date of Encounter: 10/06/17 Time of Encounter: 18:27 - Assessment and plan (1) Severe sepsis Current Visit: Yes Status: Acute Assessment and plan: Patient developed severe sepsis with leukocytosis, tachycardia fever and lactic acidosis. Most likely intra-abdominal etiology. Will broaden antibiotics spectrum. He was receiving Zosyn since his hospitalization initially. But he was also receiving TPN. Agree with adding Diflucan to treatment regimen. Cultures have been repeated. We will follow results. High risk for complications including sudden critical decline and . Monitor urine output. At this time, patient's blood pressure is stable. If his blood pressure declines or lactic acidosis worsens, he will need pressor support. Currently he has IV access with a PICC line. If he needs pressors, will place central line. Critical care time: 35 minutes. (2) Acute respiratory failure with hypoxia Current Visit: Yes Status: Acute Assessment and plan: Patient became tachypneic. Likely from anemia and lactic acidosis. CT angiogram of the chest does not show any PE. Patient has been on prophylaxis with heparin. No signs of pneumonia either. Check ABG. Use BiPAP if needed. Patient is full code. If his respiratory status declines, he will need to be intubated and mechanically ventilated. (3) Anemia Current Visit: Yes Status: Suspected Assessment and plan: Acute on chronic anemia. Uncertain etiology. CT of the abdomen and pelvis does not show any retroperitoneal bleed. Our concern for GI bleed. Will check send gastric secretions for occult blood studies. Transfuse PRBC. Monitor H& H. Will place patient on IV PPI. Hold heparin for now. Qualifiers: Anemia type: other cause Other causes of anemia: acute posthemorrhagic Qualified Code(s): D62 - Acute posthemorrhagic anemia (4) Anastomotic leak of intestine Current Visit: Yes Status: Acute Assessment and plan: Status post exploratory laparotomy. Surgery following. CT scan of the abdomen and pelvis shows inflammatory stranding in the right upper quadrant with ill- defined a fluid elections. Developing abscesses cannot be excluded. Continue IV antibiotics. Follow surgery recommendations. 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 Follow-up with surgery and oncology. (6) DVT prophylaxis Current Visit: Yes Status: Acute Assessment and plan: With EPCDs. Hold heparin for now while evaluate for possible GI bleed. - Subjective Interval history: Patient had previously undergone right colectomy for metastatic colon cancer who was initially admitted here for acute abdominal pain with possible ileus but was later found to have anastomotic leak of intestine and was urgently taken to the operating room where he underwent resection of ileocolic anastomosis and [id number] functional end-to-end anastomosis. He was placed on IV antibiotics since then and monitored closely by surgery. He was placed on TPN while waiting for return of bowel function. His condition slowly improved to the point where he was being evaluated for possible discharge today. He was on full liquid diet chew was tolerating well. He did have large bowel movements today. However he began to have fever with temperature of 101.9 along with chills and rigors. He was also tachycardic with heart rate in the 120s and tachypneic with respiratory rate between 34 and 40. His blood pressure was stable. However given the clinical deterioration, he was transferred to ICU for closer monitoring. Patient presently denies any new complaints. He denies any abdominal pain. Denies any dizziness or lightheadedness at this time. He is no longer shaking but remains febrile. - Constitutional Vitals: Temp Pulse Resp BP Pulse Ox 104.8 F H 122 35 104/50 96 10/06/17 15:38 10/06/17 15:46 10/06/17 15:46 10/06/17 15:46 10/06/17 15:46 General appearance: Present: cooperative, A&O X 3, answers questions appropriately Exam: Moderate distress - Neck Neck exam general surgery: Present: supple, trachea midline. Absent: lymphadenopathy - Respiratory Respiratory exam: Present: CTAB, tachypnea. Absent: accessory muscle use, rales , rhonchi, wheezes - Cardiovascular Cardiovascular exam: Present: RRR, +S1, +S2. Absent: diastolic murmur, gallop, rubs, systolic murmur - GI/Abdominal GI/Abdominal exam: Present: diminished bowel sounds, distended, tenderness - Extremities Exam Extremities exam: Present: warm, radial pulses palpable and symmetrical. Absent : calf tenderness, cyanotic, pedal edema - Neurological Exam Neurological exam: Present: alert, oriented X3, no focal deficits. Absent: facial droop, speech deficit - Skin Skin exam: Present: dry, intact Internal Medicine: Result - Labs CBC & Chem 7: 10/06/17 17:28 10/06/17 17:13 Labs: Short CBC 10/06/17 10/06/17 Range/Units 14:04 17:28 WBC 16.1 H 23.6 H (4.3-11.1) K/mcL Hgb 5.2 L* D 5.9 L* (12.9-16.9) g/dL Hct 17.9 L 19.9 L (37.5-50.1) % Plt Count 508 H 531 H (140-400) K/mcL Neutrophils # 15.6 H 22.9 H (1.6-8.9) K/mcL BMP 10/06/17 17:13 Sodium 131 L Potassium 4.1 Chloride 99 Carbon Dioxide 19 L BUN 31 H Creatinine 1.35 H Glucose 92 Calcium 8.3 L Urine 10/06/17 Range/Units 16:00 Urine Color Yellow (Yellow) Urine Clarity Clear (Clear) Urine pH 6.0 (5.0-8.0) pH Units Ur Specific [place] 1.028 H (1.010-1.025) Urine Protein 30 H (Neg-Trace) mg/dL Urine Glucose (UA) Normal (Normal) mg/dL - Impressions Impressions Chest X-Ray 10/06/17 13:58 IMPRESSION: Stable hypoaeration with mild lower lobe atelectasis. D/ / 10/06/2017 15:03:51 Carter Baptiste MD / Roz Maravilla Interpreting Provider: Carter Baptiste MD Abdomen/Pelvis CT 10/06/17 16:30 IMPRESSION: 1. Postsurgical changes in the abdomen and pelvis secondary to recent right hemicolectomy and revision. There is diffuse dilatation of large and small bowel, as well as marked distention of the stomach, which is largely fluid filled. Findings are likely secondary to a postoperative ileus. Obstruction is felt to be less likely. Consider nasogastric decompression. 2. Inflammatory stranding in the right upper quadrant, where there are two ill-defined air-fluid collections, which measure 4.2 cm and 3.8 cm. Per history, a drain was recently removed from this region. Findings are likely related to recurrent seromas, although, developing abscesses cannot be excluded. Continued CT follow-up is recommended. 3. Small postsurgical pneumoperitoneum. 4. Multifocal hepatic metastatic disease, stable from the previous exam. 5. No acute abnormality in the chest. 6. Soft tissue abdominal drain. No soft tissue abscess. Results of this examination were verbally discussed with Dr. Ly at 5:14 p.m. on 10/06/2017. D/ / 10/06/2017 17:24:26 Shawn Jordan MD / ronald Interpreting Provider: Shawn Jordan MD Chest CTA 10/06/17 16:30 IMPRESSION: 1. Postsurgical changes in the abdomen and pelvis secondary to recent right hemicolectomy and revision. There is diffuse dilatation of large and small bowel, as well as marked distention of the stomach, which is largely fluid filled. Findings are likely secondary to a postoperative ileus. Obstruction is felt to be less likely. Consider nasogastric decompression. 2. Inflammatory stranding in the right upper quadrant, where there are two ill-defined air-fluid collections, which measure 4.2 cm and 3.8 cm. Per history, a drain was recently removed from this region. Findings are likely related to recurrent seromas, although, developing abscesses cannot be excluded. Continued CT follow-up is recommended. 3. Small postsurgical pneumoperitoneum. 4. Multifocal hepatic metastatic disease, stable from the previous exam. 5. No acute abnormality in the chest. 6. Soft tissue abdominal drain. No soft tissue abscess. Results of this examination were verbally discussed with Dr. Ly at 5:14 p.m. on 10/06/2017. D/ / 10/06/2017 17:24:26 Shawn Jordan MD / ronald Interpreting Provider: Shawn Jordan MD - VTE Documentation of Mechanical Device: Intermittent pneumatic compression device Consult Discharge Plan - Plan Instructions: Jerry-Velásquez Drain Care (DC), Colectomy (DC) Additional Instructions: General Surgical Discharge Instructions 1. No pushing, pulling, or lifting greater than 15 lbs for 4 weeks (depending upon procedure). 2. You may shower beginning today, but no tub baths, soaking, or swimming for 2 weeks. 3. You may resume driving when you are off narcotics and are safe to react in a car. 4. Take ibuprofen every 8 hours for discomfort. If this does not relieve discomfort, you may take the as needed Percocet. Take narcotics as directed. Do not take more narcotics then directed and do not share your narcotics with any other person. Do not drink alcohol while on narcotics. 5. Take stool softeners (Colace) or a water based laxative (Miralax) while taking narcotics. You may hold for loose stools. 6. Report any fevers greater than 100.5F, increase abdominal discomfort, drainage that looks like pus, increased redness or pain at the surgical site, or any vomiting. 7. Report any pain in the calves, shortness of breath, or rapid heartbeat. 8. Follow-up in the office as directed. 9. If you were prescribed antibiotics, do not stop them without talking to your provider. 10. Do not let the SANDRA drain dangle from your body. Safety pin the drain to your clothing when you're up and about. Suspended drain on a lanyard or other such necklace when you shower. 11. SANDRA wound care: remove dressing's. Shower daily with antibacterial soap. Replace split gauze dressing and tape to secure. Empty the drainage in your SANDRA at least daily and record this on the form provided to you. She drip the SANDRA drain line twice-daily. Drink at least 3 protein supplements every day. This is vital for ensuring you are getting enough nutrition so that your body can heal. Referrals: Meg Venegas CNP [Primary Care Provider] - 10/11/17 9:15 am Jayden Galvin MD [Partnered Physician] - 10/28/17 10:30 am (2 weeks) Radha Baker CNP [Advanced Practice Nurse] - 10/13/17 8:45 am Prescriptions: Amoxicillin/Clavulanate [Augmentin] 875 mg PO BIDWM #20 tablet Fluconazole [Diflucan] 100 mg PO DAILY #5 tablet OxyCODONE/APAP 5/325 [Percocet 5/325 MG] 1 tab PO Q6H PRN 7 Days #28 tablet PRN Reason: Postoperative pain Polyethylene Glycol 3350 [MiraLAX] 17 gm PO DAILY PRN #30 powd.pack PRN Reason: Constipation
[2017-10-06] MEDS ORDERED: Pantoprazole 40 MG VIAL IVP ONE (19:00)
[2017-10-06] MEDS: Levofloxacin 750 MG/150 ML 750 MG/150 ML BAG IVPB SCH (19:58)
[2017-10-06] MEDS: Acetaminophen IV 1,000 MG/100 ML INFUS..BTL IVPB SCH (20:46)
[2017-10-06] MEDS: Micafungin 100 MG in 0.9 % Sodium Chloride Mini Bag 100 ML IVPB SCH (20:58)
[2017-10-06] MEDS: Ringers Solution, Lactated 1,000 ML IVC SCH (20:58)
[2017-10-06] MEDS ORDERED: Ringers Solution, Lactated 1,000 ML IVC SCH (21:15)
[2017-10-06] MEDS: 0.9 % Sodium Chloride 1,000 ML IVC SCH ×3 (21:23→21:46)
[2017-10-06] MEDS: Pantoprazole 40 MG in 0.9 % Sodium Chloride Mini Bag 100 ML IVC SCH (21:47)
[2017-10-06 22:12] LABS: Nucleated Red Blood Cells 0.1 /100 WBC (0)
[2017-10-06 22:13] LABS: Hematocrit 22.7 % (37.5-50.1); Hemoglobin 6.9 g/dL (12.9-16.9); Mean Corpuscular HGB Conc 30.4 g/dL (31.6-35.5); Mean Corpuscular Hemoglobin 22.2 pg (28.0-33.3); Platelet Count 454 K/mcL (140-400); Red Blood Count 3.11 M/mcL (4.19-5.50); Red Cell Distribution Width 22.2 % (11.5-14.5)
--- NOTE | 2017-10-06 22:25 | Sepsis Event Note ---
Sepsis Reassessment Note - Evaluation Sepsis Screen: Sepsis Risk Current Stage of Sepsis: sepsis Possible Source of Sepsis: GI tract/intra-abdominal - Focused Exam Date of Encounter: 10/06/17 Time of Encounter: 22:24 Vital Signs: Vital Signs Temp Pulse Resp BP Pulse Ox 10/06/17 22:00 101.1 F H 86 21 117/59 98 10/06/17 21:00 102.5 F H 96 28 130/74 100 10/06/17 20:42 103 F H 100 26 125/93 100 10/06/17 20:35 103.3 F H 101 30 114/71 10/06/17 20:11 103.8 F H 10/06/17 20:00 103.3 F H 102 32 116/65 98 10/06/17 19:44 103.8 F H 105 22 135/89 100 10/06/17 19:00 103.7 F H 97 30 119/69 98 10/06/17 18:48 103.8 F H 107 24 136/82 98 10/06/17 18:33 103.8 F H 108 24 136/82 99 10/06/17 15:46 122 35 104/50 96 10/06/17 15:38 104.8 F H 135 35 93 10/06/17 12:05 101.7 F H 120 34 154/77 94 10/06/17 11:08 99.8 F H 82 15 125/71 95 Respiratory Exam: Present: CTA bilaterally Cardiovascular Exam: Present: tachycardia Capillary Refill: < 2 seconds Peripheral Pulse Strength: 3+ normal Peripheral Pulse Location: Radial Skin Exam: normal turgor
[2017-10-06 22:39] LABS: Hypersegmented Neutrophils Present (Not Present); Hypochromasia Present (Not Present); Lymphocytes # 0.8 K/mcL (0.6-4.6); Neutrophils # 41.1 K/mcL (1.6-8.9)
[2017-10-06 22:40] LABS: Anisocytosis 2+ (Not Present); Platelet Estimate Normal (Normal)
[2017-10-07] MEDS: Pantoprazole 40 MG in 0.9 % Sodium Chloride Mini Bag 100 ML IVC SCH ×3 (02:16→12:16)
[2017-10-07] MEDS: Acetaminophen IV 1,000 MG/100 ML INFUS..BTL IVPB SCH ×2 (02:48→08:20)
[2017-10-07] MEDS: 0.9 % Sodium Chloride 1,000 ML IVC SCH ×2 (03:17→08:00)
[2017-10-07] MEDS: MetroNIDAZOLE 500 MG/100 ML 500 MG/100 ML BAG IVPB SCH ×3 (03:18→20:47)
[2017-10-07] MEDS: *HR* LORazepam 2 MG/ML VIAL IVP SCH ×2 (03:21→08:11)
[2017-10-07 04:12] LABS: Mean Platelet Volume 10.2 fL (9.4-12.4)
[2017-10-07 04:14] LABS: Hematocrit 26.1 % (37.5-50.1); Mean Corpuscular HGB Conc 30.7 g/dL (31.6-35.5); Mean Corpuscular Hemoglobin 23.1 pg (28.0-33.3); Mean Corpuscular Volume 75.2 fL (83.0-100.0); Platelet Count 455 K/mcL (140-400); Red Blood Count 3.47 M/mcL (4.19-5.50); Red Cell Distribution Width 21.8 % (11.5-14.5)
[2017-10-07 04:27] LABS: Alanine Aminotransferase 282 Units/L (7-52); Albumin 2.6 g/dL (3.5-5.7); Albumin/Globulin Ratio 0.8 (1.1-2.2); Alkaline Phosphatase 230 Units/L (34-104); Aspartate Amino Transferase 309 Units/L (13-39); BUN/Creatinine Ratio 36 (6-26); Bilirubin,Total 0.8 mg/dL (0.3-1.0); Blood Urea Nitrogen 31 mg/dL (6-20); Calcium 7.9 mg/dL (8.6-10.3); Carbon Dioxide 22 mEq/L (23-29); Chloride 107 mEq/L (98-107); Globulin 3.2 g/dL (2.4-3.5); Glucose 123 mg/dL (70-105); Osmolality,Calculated 292 (280-300); Potassium 3.8 mEq/L (3.5-5.1); Sodium 137 mEq/L (136-145); Total Protein 5.8 g/dL (6.4-8.9); eGFR For African Americans > 60 (> 60); eGFR For Non-African Americans > 60 (> 60)
[2017-10-07 04:49] LABS: Lymphocytes # 3.5 K/mcL (0.6-4.6); Monocytes # 0.9 K/mcL (0.0-1.3); Neutrophils # 39.1 K/mcL (1.6-8.9)
[2017-10-07 04:50] LABS: Platelet Estimate Normal (Normal); Toxic Granulation Present (Not Present)
[2017-10-07 04:51] LABS: Hypersegmented Neutrophils Present (Not Present); Hypochromasia Present (Not Present); Large Platelets Present (Not Present); Ovalocytes 1+ (Not Present); Poikilocytosis 1+ (Not Present)
[2017-10-07] MEDS: Ringers Solution, Lactated 1,000 ML IVC SCH ×4 (05:03→21:02)
[2017-10-07] MEDS ORDERED: Piperacillin/Tazobactam 3.375 GM in 0.9 % Sodium Chloride Mini Bag 100 ML IVPB SCH (08:00)
[2017-10-07] MEDS: Levofloxacin 750 MG/150 ML 750 MG/150 ML BAG IVPB SCH (08:14)
--- NOTE | 2017-10-07 09:02 | General Surgery Progress Note ---
Date of Encounter: 10/07/17 Time of Encounter: 09:00 - Assessment and Plan (1) Sepsis Current Visit: Yes Status: Acute Patient meets sepsis with leukocytosis with a white blood count at 41.9, febrile with a temperature of 101.5, possible source of infection intra- abdominal, elevating lactic acid at 5.3, tachycardia, respiratory distress. White blood count is trending up. Patient is afebrile and not tachycardic. No respiratory distress at this time. Blood cultures pending. Continue sepsis workup. Continue to monitor the patient closely. Qualifiers: Qualified Code(s): A41.9 - Sepsis, unspecified organism (2) Anastomotic leak of intestine Current Visit: Yes Status: Acute POD #8 Exploratory Laparotomy with resection of ileocolic anastomosis and a side to side, functional end to end anastomosis. Pathology pending Pathology from colon resection- poorly differentiated adenocarcinoma invading through pericolonic fat, margins negative, node positive; liver biopsy benign Patient was expected to be discharged yesterday. However, upon discharge Vitals showed a temperature of 101.9. Patient had sepsis with leukocytosis with a white blood count of 41.9, febrile with a rectal temperature 104.8, tachycardia, and respiratory distress. Possible source of infection may be intra-abdominal versus pneumonia. Chest CTA ruled out pulmonary embolism. CT of the abdomen and pelvis showed difffuse dilatation of large and small bowel, as well as marked distention of the stomach, which is largely fluid filled. Findings relating to recurrence seromas versus developing abscesses. Chest x- ray shows stable hypoaeration with mild lower lobe atelectasis. Lactic acid was 5.3. Patient was transferred to the ICU yesterday. White blood count is trending up. Hemoglobin is at 8.0. Patient received for units of blood yesterday. Stool guaic is negative. Repeat lactic acid yesterday was 3.2. Plan: blood cultures still pending NPO while awaiting return of bowel function continue the NG tube continue the IV antibiotics repeat lactic acid Maintain SANDRA drains Supportive care and pain control Incentive spirometer every 1 hour while awake GI prophylaxis Out of bed to chair and ambulate hallways 3 times a day with assistance A.m. labs- CBC, BMP, Mg, Phos (3) Metastatic colon cancer to liver Current Visit: No Status: Acute Oncology following Pathology- poorly differentiated adenocarcinoma invading through pericolonic fat, margins negative, node positive; liver biopsy benign (4) Obesity Current Visit: Yes Status: Chronic Qualifiers: Obesity type: due to excess calories Obesity classification: unspecified obesity classification Serious obesity comorbidity presence: unspecified whether serious comorbidity present Qualified Code(s): E66.09 - Other obesity due to excess calories (5) Hypertension Current Visit: Yes Status: Chronic We will continue to monitor and treat as necessary Qualifiers: Hypertension type: essential hypertension Qualified Code(s): I10 - Essential (primary) hypertension (6) DVT prophylaxis Current Visit: Yes Status: Acute Hold heparin for possible GI bleed EPCDs to bilateral lower extremities for DVT prophylaxis Out of bed to chair and ambulating hallways 3 times a day with assistance Subjective Patient reports: no new complaints, diarrhea, afebrile Narrative: The patient was seen and evaluated at bedside this morning. Patient was asleep but was easily awaken. Patient appears in no acute distress. Nurse was at bedside. The patient states that he feels better, and denies any abdominal pain at this time. He denies any fever, headaches, chest pain, shortness of breath, difficulty breathing, nausea vomiting, and any weaknesses. Objective Vital Signs - Last 8 Hours Temp Pulse Resp BP Pulse Ox 10/07/17 08:00 96.5 F L 10/07/17 07:00 97.6 F 71 20 100/74 98 10/07/17 06:00 68 22 104/71 98 10/07/17 04:50 68 22 105/75 98 10/07/17 03:57 68 22 106/78 98 10/07/17 03:15 97.6 F 68 12 108/80 98 10/07/17 03:00 97.6 F 68 12 108/80 98 10/07/17 02:00 75 12 107/56 98 10/07/17 01:39 98.6 F 75 12 105/71 98 10/07/17 01:36 98.7 F 75 18 105/67 Intake and Output 10/06/17 10/07/17 10/07/17 23:59 07:59 15:59 Intake Total 2115 / 2115 2400 / 2400 Output Total 1800 / 1800 2250 / 2250 900 / 900 Balance 315 / 315 150 / 150 -900 / -900 Intake: IV Fluids 1450 / 1450 1800 / 1800 Protonix 40 MG In 0.9 % Sodium 200 / 200 Chloride (Mini-Bag +) 100 ML @ 20 mls/hr IVC .Q5H [facility] Rx#: [id number] Lactated Ringers 1,000 ML @ 125 1000 / 1000 1000 / 1000 mls/hr IVC .Q8H [facility] Rx#: [id number] Ofirmev 1,000 mg/100 ml 1,000 100 / 100 100 / 100 mg In 100 ml @ 400 mls/hr IVPB Q6H [facility] Rx#:[id number] Levaquin Premix 750mg/150 mL 150 / 150 750 mg In 150 ml @ 100 mls/hr IVPB DAILY [facility] Rx#:[id number] Flagyl Premix 500 MG/100 ML 500 100 / 100 mg In 100 ml @ 100 mls/hr IVPB Q8HR [facility] Rx#:[id number] Mycamine 100 MG In 0.9 % Sodium 100 / 100 Chloride (Mini-Bag +) 100 ML @ 100 mls/hr IVPB QPM [facility] Rx#: [id number] Vancocin 2,000 MG In 0.9 % 500 / 500 Sodium Chloride 500 ML @ 250 mls/hr IVPB Q12H [facility] Rx#: [id number] Oral 0 / 0 0 / 0 Blood Product 665 / 665 600 / 600 Rbcs Leuko Poor As-1 Unit 300 / 300 [id number] Rbcs Leuko Poor As-1 Unit 365 / 365 [id number] Rbcs Leuko Poor As-1 Unit 300 / 300 [id number] Rbcs Leuko Poor As-3 2nd Unit 300 / 300 [id number] Output: Catheter 525 / 525 1600 / 1600 900 / 900 Gastric Drainage 1250 / 1250 650 / 650 Wound Drainage 25 / 25 0 / 0 Left 25 / 25 0 / 0 Other: Stool Size Moderate Copious Stool Consistency liquid liquid Stool Color Black Black # Bowel Movements 1 1 Weight 133.6 kg Blood Glucose* 122 Patient Weight 10/07/17 23:59 Weight 133.6 kg - General physical appearance well developed, well nourished, no distress - Eyes PERRL, normal ocular movement - ENT dry mucosa - Neck Neck exam: trachea midline - Respiratory normal expansion, normal respiratory effort, other (Patient is currently on the oxygen mask with the flow rate of 3 LPM. Currently does not appear to be respiratory distress. No labored breathing. Course breath sounds heard bilaterally in the anterior lung yuonger. Decreased breath sounds in the lower left base) - Cardiovascular Cardiovascular exam: Present: RRR, no murmurs/rubs/gallops - Abdomen Abdomen: Present: bowel sounds present (Bowel sounds present in all 4 quadrants. ), soft, non tender, wound (SANDRA drain on the left side had small amount of purulent drainage. ). Absent: distended, rebound, rigid - Incision Incision: Present: clean and dry, intact. Absent: draining, purulent - Integumentary no rash - Neurologic CN 2-12 grossly intact - Psychiatric oriented to time, oriented to person, oriented to place - Labs 10/07/17 04:00 10/07/17 04:00 Diabetes panel 10/06/17 10/07/17 Range/Units 17:13 04:00 Sodium 131 L 137 (136-145) mEq/L Potassium 4.1 3.8 (3.5-5.1) mEq/L Chloride 99 107 (98-107) mEq/L Carbon Dioxide 19 L 22 L (23-29) mEq/L BUN 31 H 31 H (6-20) mg/dL Creatinine 1.35 H 0.87 (0.70-1.30) mg/dL Glucose 92 123 H (70-105) mg/dL Calcium 8.3 L 7.9 L (8.6-10.3) mg/dL AST 309 H (13-39) Units/L ALT 282 H (7-52) Units/L Alkaline Phosphatase 230 H (34-104) Units/L Albumin 2.6 L (3.5-5.7) g/dL Calcium panel 10/06/17 10/07/17 Range/Units 17:13 04:00 Calcium 8.3 L 7.9 L (8.6-10.3) mg/dL Albumin 2.6 L (3.5-5.7) g/dL Pituitary panel 10/06/17 10/07/17 Range/Units :13 04:00 Sodium 131 L 137 (136-145) mEq/L Potassium 4.1 3.8 (3.5-5.1) mEq/L Chloride 99 107 (98-107) mEq/L Carbon Dioxide 19 L 22 L (23-29) mEq/L BUN 31 H 31 H (6-20) mg/dL Creatinine 1.35 H 0.87 (0.70-1.30) mg/dL Glucose 92 123 H (70-105) mg/dL Calcium 8.3 L 7.9 L (8.6-10.3) mg/dL Adrenal panel 10/06/17 10/07/17 Range/Units 17:13 04:00 Sodium 131 L 137 (136-145) mEq/L Potassium 4.1 3.8 (3.5-5.1) mEq/L Chloride 99 107 (98-107) mEq/L Carbon Dioxide 19 L 22 L (23-29) mEq/L BUN 31 H 31 H (6-20) mg/dL Creatinine 1.35 H 0.87 (0.70-1.30) mg/dL Glucose 92 123 H (70-105) mg/dL Calcium 8.3 L 7.9 L (8.6-10.3) mg/dL Total Bilirubin 0.8 (0.3-1.0) mg/dL AST 309 H (13-39) Units/L ALT 282 H (7-52) Units/L Alkaline Phosphatase 230 H (34-104) Units/L Albumin 2.6 L (3.5-5.7) g/dL - VTE Documentation of Mechanical Device: Intermittent pneumatic compression device Consult Discharge Plan - Plan Instructions: Jerry-Velásquez Drain Care (DC), Colectomy (DC) Additional Instructions: General Surgical Discharge Instructions 1. No pushing, pulling, or lifting greater than 15 lbs for 4 weeks (depending upon procedure). 2. You may shower beginning today, but no tub baths, soaking, or swimming for 2 weeks. 3. You may resume driving when you are off narcotics and are safe to react in a car. 4. Take ibuprofen every 8 hours for discomfort. If this does not relieve discomfort, you may take the as needed Percocet. Take narcotics as directed. Do not take more narcotics then directed and do not share your narcotics with any other person. Do not drink alcohol while on narcotics. 5. Take stool softeners (Colace) or a water based laxative (Miralax) while taking narcotics. You may hold for loose stools. 6. Report any fevers greater than 100.5F, increase abdominal discomfort, drainage that looks like pus, increased redness or pain at the surgical site, or any vomiting. 7. Report any pain in the calves, shortness of breath, or rapid heartbeat. 8. Follow-up in the office as directed. 9. If you were prescribed antibiotics, do not stop them without talking to your provider. 10. Do not let the SANDRA drain dangle from your body. Safety pin the drain to your clothing when you're up and about. Suspended drain on a lanyard or other such necklace when you shower. 11. SANDRA wound care: remove dressing's. Shower daily with antibacterial soap. Replace split gauze dressing and tape to secure. Empty the drainage in your SANDRA at least daily and record this on the form provided to you. She drip the SANDRA drain line twice-daily. Drink at least 3 protein supplements every day. This is vital for ensuring you are getting enough nutrition so that your body can heal. Referrals: Meg Venegas CNP [Primary Care Provider] - 10/11/17 9:15 am Jayden Galvin MD [Partnered Physician] - 10/28/17 10:30 am (2 weeks) Radha Baker CNP [Advanced Practice Nurse] - 10/13/17 8:45 am Prescriptions: Amoxicillin/Clavulanate [Augmentin] 875 mg PO BIDWM #20 tablet Fluconazole [Diflucan] 100 mg PO DAILY #5 tablet OxyCODONE/APAP 5/325 [Percocet 5/325 MG] 1 tab PO Q6H PRN 7 Days #28 tablet PRN Reason: Postoperative pain Polyethylene Glycol 3350 [MiraLAX] 17 gm PO DAILY PRN #30 powd.pack PRN Reason: Constipation
--- NOTE | 2017-10-07 09:02 | Pulmonology Progress Note ---
Date of Encounter: 10/07/17 Time of Encounter: 08:15 Assessment and Plan (1) Anastomotic leak of intestine Current Visit: Yes Status: Acute Was repaired as above on 09/29/17 -- planned discharge yesterday delayed due to fever, leukocytosis, and general unwell feeling -- (2) Alteration in bowel elimination due to postoperative ileus Current Visit: Yes Status: Acute CT-abd obtained 10/06/17 demonstrated distention throughout bowel segments -- Pt NPO with NG tube (3) Fever Current Visit: Yes Status: Acute POD 8 from ex-lap and colonic anastomosis revision. -- Cont IV Abx and monitor WBC ct daily -- BC x2 peripheral venipuncture and x1 PICC pending -- Sent SANDRA fluid for C&S -- Cont monitor vitals; has been afebrile overnight after evening max temp of 103.8F on 10/06/17 -- Pt presently stable and in good condition; consider transfer to medical floor within next day or two for continuation of care Qualifiers: Fever type: unspecified Qualified Code(s): R50.9 - Fever, unspecified (4) Metastatic colon cancer to liver Current Visit: No Status: Acute Subjective Principal diagnosis: Sepsis, suspected intra-abdominal source Interval history: HPI: history of colon cancer with recent (09/23/17) right hemicolectomy, following days became painful prompting return to hospital. Exploratory laparotomy on 09/29/17 demonstrated anastomotic leak near closure site of side-by -side anastomosis, which was repaired at that time. Patient had recovered reassuringly throughout post op course until yesterday afternoon (10/06/17) when he began generally feeling unwell, began having elevated temperatures (peak of 103.8F), and leukocytosis (peak so far has been 43.4k). Surgical service reinstated antibiotics including Vanco, Flagyl, and Levaquin as well as IV Acetaminophen. Vitals stabilized in short course. This AM, patient states is comfortable. Vitals have been normal and stable overnight. Patient has no acute complaints. Antibiotic coverage per surgical team is being continued. ICU team did collect requested blood cultures, changed Acetaminophen to PRN, and collected/sent SANDRA fluid for culture for further source investigation; this was discussed with the surgical team. Patient expresses no complaints including concerns of acute pain or fever. Objective PUL Vital signs: Last Vital Signs Temp 96.5 F L 10/07/17 08:00 Pulse 71 10/07/17 08:00 Resp 20 10/07/17 08:00 BP 93/66 10/07/17 08:00 Pulse Ox 100 10/07/17 08:00 CONSTITUTIONAL: alert, follows commands, calm, pleasant, and in no acute distress HEAD: Normocephalic; grossly atraumatic. EYES: Pupils equal/round, no scleral icterus Oropharynx: pink/moist RESP: NRD without use of accessory musculature, CTA b/l CARD: Regular rhythm, borderline tachycardia; without murmurs, rubs, or gallop ABD: grossly normal, soft, no evidence of surgical site infection; purulent fluid noted in SANDRA reservoir SKIN: normal appearance, no pallor/diaphoresis,mottling,jaundice,cyanosis EXT: Rad pulses 2+ Results - Laboratory Findings CBC and BMP: 10/07/17 04:00 10/07/17 04:00 ABG ABG pH 7.48 pH Units (7.32-7.45) H 10/06/17 18:26 ABG pCO2 30 mmHg (35-45) L 10/06/17 18:26 ABG pO2 88 mmHg (85-104) 10/06/17 18:26 ABG O2 Saturation 98 % (95-98) 10/06/17 18:26 Abnormal lab findings: Abnormal lab results WBC 43.4 K/mcL (4.3-11.1) H* 10/07/17 04:00 RBC 3.47 M/mcL (4.19-5.50) L 10/07/17 04:00 Hgb 8.0 g/dL (12.9-16.9) L 10/07/17 04:00 Hct 26.1 % (37.5-50.1) L 10/07/17 04:00 MCV 75.2 fL (83.0-100.0) L 10/07/17 04:00 MCH 23.1 pg (28.0-33.3) L 10/07/17 04:00 MCHC 30.7 g/dL (31.6-35.5) L 10/07/17 04:00 RDW 21.8 % (11.5-14.5) H 10/07/17 04:00 Plt Count 455 K/mcL (140-400) H 10/07/17 04:00 Band Neutrophils % 14.0 % (0-4) H 10/07/17 04:00 Neutrophils # 39.1 K/mcL (1.6-8.9) H 10/07/17 04:00 Nucleated RBCs/100 WBC 0.1 /100 WBC (0) H 10/06/17 22:00 Hypersegmented Neuts Present (Not Present) A 10/07/17 04:00 Toxic Granulation Present (Not Present) A 10/07/17 04:00 Large Platelets Present (Not Present) A 10/07/17 04:00 Hypochromasia Present (Not Present) A 10/07/17 04:00 Poikilocytosis 1+ (Not Present) A 10/07/17 04:00 Anisocytosis 2+ (Not Present) A 10/06/17 22:00 Microcytosis Present (Not Present) A 10/01/17 04:53 Ovalocytes 1+ (Not Present) A 10/07/17 04:00 ABG pH 7.48 pH Units (7.32-7.45) H 10/06/17 18:26 ABG pCO2 30 mmHg (35-45) L 10/06/17 18:26 Carbon Dioxide 22 mEq/L (23-29) L 10/07/17 04:00 BUN 31 mg/dL (6-20) H 10/07/17 04:00 BUN/Creatinine Ratio 36 (6-26) H 10/07/17 04:00 Glucose 123 mg/dL (70-105) H 10/07/17 04:00 POC Glucose 122 (58-89) H 10/06/17 23:48 Lactic Acid 3.2 mmol/L (0.5-2.2) H 10/06/17 20:04 Calcium 7.9 mg/dL (8.6-10.3) L 10/07/17 04:00 Direct Bilirubin 0.3 mg/dL (0.0-0.2) H 09/28/17 22:59 AST 309 Units/L (13-39) H 10/07/17 04:00 ALT 282 Units/L (7-52) H 10/07/17 04:00 Alkaline Phosphatase 230 Units/L (34-104) H 10/07/17 04:00 Serum Total Protein 5.8 g/dL (6.4-8.9) L 10/07/17 04:00 Albumin 2.6 g/dL (3.5-5.7) L 10/07/17 04:00 Albumin/Globulin Ratio 0.8 (1.1-2.2) L 10/07/17 04:00 Prealbumin 8.6 mg/dL (17.0-34.0) L 10/03/17 04:00 Amylase 12 Units/L (29-103) L 09/28/17 22:59 Lipase 5 Units/L (11-82) L 09/28/17 22:59 Ur Specific [place] 1.028 (1.010-1.025) H 10/06/17 16:00 Urine Protein 30 mg/dL (Neg-Trace) H 10/06/17 16:00 Urine Microscopic RBC 3-5 per hpf (0-3) H 10/06/17 16:00 Urine Microscopic WBC 3-5 per hpf (0-3) H 10/06/17 16:00 Ur Squamous Epith Cells Many per lpf (None-Few) H 10/06/17 16:00 Urine Bacteria Moderate per hpf (None-Few) H 10/06/17 16:00 - Clinical Findings Intake & Output: Intake & Output 10/06/17 10/07/17 10/07/17 23:59 07:59 15:59 Intake Total 2115 / 2115 2400 / 2400 Output Total 1800 / 1800 2250 / 2250 900 / 900 Balance 315 / 315 150 / 150 -900 / -900 Weight 133.6 kg - VTE Documentation of Mechanical Device: Intermittent pneumatic compression device Consult Discharge Plan - Plan Instructions: Jerry-Velásquez Drain Care (DC), Colectomy (DC) Additional Instructions: General Surgical Discharge Instructions 1. No pushing, pulling, or lifting greater than 15 lbs for 4 weeks (depending upon procedure). 2. You may shower beginning today, but no tub baths, soaking, or swimming for 2 weeks. 3. You may resume driving when you are off narcotics and are safe to react in a car. 4. Take ibuprofen every 8 hours for discomfort. If this does not relieve discomfort, you may take the as needed Percocet. Take narcotics as directed. Do not take more narcotics then directed and do not share your narcotics with any other person. Do not drink alcohol while on narcotics. 5. Take stool softeners (Colace) or a water based laxative (Miralax) while taking narcotics. You may hold for loose stools. 6. Report any fevers greater than 100.5F, increase abdominal discomfort, drainage that looks like pus, increased redness or pain at the surgical site, or any vomiting. 7. Report any pain in the calves, shortness of breath, or rapid heartbeat. 8. Follow-up in the office as directed. 9. If you were prescribed antibiotics, do not stop them without talking to your provider. 10. Do not let the SANDRA drain dangle from your body. Safety pin the drain to your clothing when you're up and about. Suspended drain on a lanyard or other such necklace when you shower. 11. SANDRA wound care: remove dressing's. Shower daily with antibacterial soap. Replace split gauze dressing and tape to secure. Empty the drainage in your SANDRA at least daily and record this on the form provided to you. She drip the SANDRA drain line twice-daily. Drink at least 3 protein supplements every day. This is vital for ensuring you are getting enough nutrition so that your body can heal. Referrals: Meg Venegas CNP [Primary Care Provider] - 10/11/17 9:15 am Jayden Galvin MD [Partnered Physician] - 10/28/17 10:30 am (2 weeks) Radha Baker CNP [Advanced Practice Nurse] - 10/13/17 8:45 am Prescriptions: Amoxicillin/Clavulanate [Augmentin] 875 mg PO BIDWM #20 tablet Fluconazole [Diflucan] 100 mg PO DAILY #5 tablet OxyCODONE/APAP 5/325 [Percocet 5/325 MG] 1 tab PO Q6H PRN 7 Days #28 tablet PRN Reason: Postoperative pain Polyethylene Glycol 3350 [MiraLAX] 17 gm PO DAILY PRN #30 powd.pack PRN Reason: Constipation
[2017-10-07] MEDS: *HR* Heparin 5,000 UNIT/ML VIAL SQ SCH (12:19)
[2017-10-07] MEDS ORDERED: *HR* LORazepam 2 MG/ML VIAL IVP PRN (15:34)
--- NOTE | 2017-10-07 16:02 | Pulmonology Consult Note ---
<VidalShawn berg - Last Filed: 10/07/17 16:02> Date of Encounter: 10/07/17 Time of Encounter: 08:20 Past Med Surg Social Fam HX - Past Medical History Medical history: hypertension, other (DDD, Psoriasis) Psychiatric history: no psych history - Past Surgical History Surgical History: colectomy (Right colon resection, liver biopsy on 09/23/17), orthopedic, other (Rotator cuff repair 3 on the right), other (Tonsillectomy, A -port placement 09/23/17) - Social History Smoking Status: Never smoker Smokeless Tobacco Status: No Alcohol use: occasionally Drug use: none - Family History Father Living Status: Still Living Hx Family Cardiac Disorders: Yes Mother Living Status: Still Living Hx Family Cardiac Disorders: Yes (HTN) Hx Family Endocrine Disorder: Yes (Diabetes Mellitus) Sister Living Status: Still Living Hx Family Cardiac Disorders: Yes (HTN) Hx Family Endocrine Disorder: Yes (Diabetes Mellitus) Medications and Allergies Ferrous Sulfate [Iron] 325 mg PO DAILY 09/16/17 [History] Metoprolol Tartrate 100 mg PO BID 09/16/17 [History] Amoxicillin/Clavulanate [Augmentin] 875 mg PO BIDWM #20 tablet 10/06/17 [Rx] Fluconazole [Diflucan] 100 mg PO DAILY #5 tablet 10/06/17 [Rx] OxyCODONE/APAP 5/325 [Percocet 5/325 MG] 1 tab PO Q6H PRN 7 Days #28 tablet [Rx] Polyethylene Glycol 3350 [MiraLAX] 17 gm PO DAILY PRN #30 powd.pack 10/06/17 [Rx ] 3 Allergy/AdvReac Type Severity Reaction Status Date / Time No Known Allergies Allergy Verified 09/28/17 20:35 All Systems: The remainder of the systems were reviewed and are negative Physical Examination Vital Signs: Vital Signs, Last 4 Hours Temp Pulse Resp BP Pulse Ox 10/07/17 15:28 80 20 112/74 100 10/07/17 14:21 97.5 F L 75 20 90/63 100 10/07/17 13:00 74 20 103/68 100 10/07/17 12:15 97.2 F L 71 20 95/70 100 Results - Laboratory Findings CBC and BMP: 10/07/17 04:00 10/07/17 04:00 ABG ABG pH 7.48 pH Units (7.32-7.45) H 10/06/17 18: ABG pCO2 30 mmHg (35-45) L 10/06/17 18: ABG pO2 88 mmHg (85-104) 10/06/17 18: ABG O2 Saturation 98 % (95-98) 10/06/17 18: Abnormal lab findings: Abnormal lab results WBC 43.4 K/mcL (4.3-11.1) H* 10/07/17 04:00 RBC 3.47 M/mcL (4.19-5.50) L 10/07/17 04:00 Hgb 8.0 g/dL (12.9-16.9) L 10/07/17 04:00 Hct 26.1 % (37.5-50.1) L 10/07/17 04:00 MCV 75.2 fL (83.0-100.0) L 10/07/17 04:00 MCH 23.1 pg (28.0-33.3) L 10/07/17 04:00 MCHC 30.7 g/dL (31.6-35.5) L 10/07/17 04:00 RDW 21.8 % (11.5-14.5) H 10/07/17 04:00 Plt Count 455 K/mcL (140-400) H 10/07/17 04:00 Band Neutrophils % 14.0 % (0-4) H 10/07/17 04:00 Neutrophils # 39.1 K/mcL (1.6-8.9) H 10/07/17 04:00 Nucleated RBCs/100 WBC 0.1 /100 WBC (0) H 10/06/17 22:00 Hypersegmented Neuts Present (Not Present) A 10/07/17 04:00 Toxic Granulation Present (Not Present) A 10/07/17 04:00 Large Platelets Present (Not Present) A 10/07/17 04:00 Hypochromasia Present (Not Present) A 10/07/17 04:00 Poikilocytosis 1+ (Not Present) A 10/07/17 04:00 Anisocytosis 2+ (Not Present) A 10/06/17 22:00 Microcytosis Present (Not Present) A 10/01/17 04:53 Ovalocytes 1+ (Not Present) A 10/07/17 04:00 ABG pH 7.48 pH Units (7.32-7.45) H 10/06/17 18:26 ABG pCO2 30 mmHg (35-45) L 10/06/17 18:26 Carbon Dioxide 22 mEq/L (23-29) L 10/07/17 04:00 BUN 31 mg/dL (6-20) H 10/07/17 04:00 BUN/Creatinine Ratio 36 (6-26) H 10/07/17 04:00 Glucose 123 mg/dL (70-105) H 10/07/17 04:00 POC Glucose 96 (58-89) H 10/07/17 11:47 Calcium 7.9 mg/dL (8.6-10.3) L 10/07/17 04:00 Direct Bilirubin 0.3 mg/dL (0.0-0.2) H 09/28/17 22:59 AST 309 Units/L (13-39) H 10/07/17 04:00 ALT 282 Units/L (7-52) H 10/07/17 04:00 Alkaline Phosphatase 230 Units/L (34-104) H 10/07/17 04:00 Serum Total Protein 5.8 g/dL (6.4-8.9) L 10/07/17 04:00 Albumin 2.6 g/dL (3.5-5.7) L 10/07/17 04:00 Albumin/Globulin Ratio 0.8 (1.1-2.2) L 10/07/17 04:00 Prealbumin 8.6 mg/dL (17.0-34.0) L 10/03/17 04:00 Amylase 12 Units/L (29-103) L 09/28/17 22:59 Lipase 5 Units/L (11-82) L 09/28/17 22:59 Ur Specific [place] 1.028 (1.010-1.025) H 10/06/17 16:00 Urine Protein 30 mg/dL (Neg-Trace) H 10/06/17 16:00 Urine Microscopic RBC 3-5 per hpf (0-3) H 10/06/17 16:00 Urine Microscopic WBC 3-5 per hpf (0-3) H 10/06/17 16:00 Ur Squamous Epith Cells Many per lpf (None-Few) H 10/06/17 16:00 Urine Bacteria Moderate per hpf (None-Few) H 10/06/17 16:00 - Clinical Findings Intake & Output: Intake & Output 10/07/17 10/07/17 10/07/17 07:59 15:59 23:59 Intake Total 2500 / 2500 1100 / 1100 Output Total 2250 / 2250 1470 / 1470 Balance 250 / 250 -370 / -370 Weight 133.6 kg Consult Discharge Plan - Plan Instructions: Jerry-Velásquez Drain Care (DC), Colectomy (DC) Additional Instructions: General Surgical Discharge Instructions 1. No pushing, pulling, or lifting greater than 15 lbs for 4 weeks (depending upon procedure). 2. You may shower beginning today, but no tub baths, soaking, or swimming for 2 weeks. 3. You may resume driving when you are off narcotics and are safe to react in a car. 4. Take ibuprofen every 8 hours for discomfort. If this does not relieve discomfort, you may take the as needed Percocet. Take narcotics as directed. Do not take more narcotics then directed and do not share your narcotics with any other person. Do not drink alcohol while on narcotics. 5. Take stool softeners (Colace) or a water based laxative (Miralax) while taking narcotics. You may hold for loose stools. 6. Report any fevers greater than 100.5F, increase abdominal discomfort, drainage that looks like pus, increased redness or pain at the surgical site, or any vomiting. 7. Report any pain in the calves, shortness of breath, or rapid heartbeat. 8. Follow-up in the office as directed. 9. If you were prescribed antibiotics, do not stop them without talking to your provider. 10. Do not let the SANDRA drain dangle from your body. Safety pin the drain to your clothing when you're up and about. Suspended drain on a lanyard or other such necklace when you shower. 11. SANDRA wound care: remove dressing's. Shower daily with antibacterial soap. Replace split gauze dressing and tape to secure. Empty the drainage in your SANDRA at least daily and record this on the form provided to you. She drip the SANDRA drain line twice-daily. Drink at least 3 protein supplements every day. This is vital for ensuring you are getting enough nutrition so that your body can heal. Referrals: Meg Venegas CNP [Primary Care Provider] - 10/11/17 9:15 am Jayden Galvin MD [Partnered Physician] - 10/28/17 10:30 am (2 weeks) Radha Baker CNP [Advanced Practice Nurse] - 10/13/17 8:45 am Prescriptions: Amoxicillin/Clavulanate [Augmentin] 875 mg PO BIDWM #20 tablet Fluconazole [Diflucan] 100 mg PO DAILY #5 tablet OxyCODONE/APAP 5/325 [Percocet 5/325 MG] 1 tab PO Q6H PRN 7 Days #28 tablet PRN Reason: Postoperative pain Polyethylene Glycol 3350 [MiraLAX] 17 gm PO DAILY PRN #30 powd.pack PRN Reason: Constipation <Manish Real W - Last Filed: 10/07/17 16:15> Date of Encounter: 10/07/17 All Systems: The remainder of the systems were reviewed and are negative Physical Examination Vital Signs: Vital Signs, Last 4 Hours Temp Pulse Resp BP Pulse Ox 10/07/17 15:28 80 20 112/74 100 10/07/17 14:21 97.5 F L 75 20 90/63 100 10/07/17 13:00 74 20 103/68 100 Results - Laboratory Findings CBC and BMP: 10/07/17 04:00 10/07/17 04:00 ABG ABG pH 7.48 pH Units (7.32-7.45) H 10/06/17 18:26 ABG pCO2 30 mmHg (35-45) L 10/06/17 18:26 ABG pO2 88 mmHg (85-104) 10/06/17 18:26 ABG O2 Saturation 98 % (95-98) 10/06/17 18:26 Abnormal lab findings: Abnormal lab results WBC 43.4 K/mcL (4.3-11.1) H* 10/07/17 04:00 RBC 3.47 M/mcL (4.19-5.50) L 10/07/17 04:00 Hgb 8.0 g/dL (12.9-16.9) L 10/07/17 04:00 Hct 26.1 % (37.5-50.1) L 10/07/17 04:00 MCV 75.2 fL (83.0-100.0) L 10/07/17 04:00 MCH 23.1 pg (28.0-33.3) L 10/07/17 04:00 MCHC 30.7 g/dL (31.6-35.5) L 10/07/17 04:00 RDW 21.8 % (11.5-14.5) H 10/07/17 04:00 Plt Count 455 K/mcL (140-400) H 10/07/17 04:00 Band Neutrophils % 14.0 % (0-4) H 10/07/17 04:00 Neutrophils # 39.1 K/mcL (1.6-8.9) H 10/07/17 04:00 Nucleated RBCs/100 WBC 0.1 /100 WBC (0) H 10/06/17 22:00 Hypersegmented Neuts Present (Not Present) A 10/07/17 04:00 Toxic Granulation Present (Not Present) A 10/07/17 04:00 Large Platelets Present (Not Present) A 10/07/17 04:00 Hypochromasia Present (Not Present) A 10/07/17 04:00 Poikilocytosis 1+ (Not Present) A 10/07/17 04:00 Anisocytosis 2+ (Not Present) A 10/06/17 22:00 Microcytosis Present (Not Present) A 10/01/17 04:53 Ovalocytes 1+ (Not Present) A 10/07/17 04:00 ABG pH 7.48 pH Units (7.32-7.45) H 10/06/17 18:26 ABG pCO2 30 mmHg (35-45) L 10/06/17 18:26 Carbon Dioxide 22 mEq/L (23-29) L 10/07/17 04:00 BUN 31 mg/dL (6-20) H 10/07/17 04:00 BUN/Creatinine Ratio 36 (6-26) H 10/07/17 04:00 Glucose 123 mg/dL (70-105) H 10/07/17 04:00 POC Glucose 96 (58-89) H 10/07/17 11:47 Calcium 7.9 mg/dL (8.6-10.3) L 10/07/17 04:00 Direct Bilirubin 0.3 mg/dL (0.0-0.2) H 09/28/17 22:59 AST 309 Units/L (13-39) H 10/07/17 04:00 ALT 282 Units/L (7-52) H 10/07/17 04:00 Alkaline Phosphatase 230 Units/L (34-104) H 10/07/17 04:00 Serum Total Protein 5.8 g/dL (6.4-8.9) L 10/07/17 04:00 Albumin 2.6 g/dL (3.5-5.7) L 10/07/17 04:00 Albumin/Globulin Ratio 0.8 (1.1-2.2) L 10/07/17 04:00 Prealbumin 8.6 mg/dL (17.0-34.0) L 10/03/17 04:00 Amylase 12 Units/L (29-103) L 09/28/17 22:59 Lipase 5 Units/L (11-82) L 09/28/17 22:59 Ur Specific [place] 1.028 (1.010-1.025) H 10/06/17 16:00 Urine Protein 30 mg/dL (Neg-Trace) H 10/06/17 16:00 Urine Microscopic RBC 3-5 per hpf (0-3) H 10/06/17 16:00 Urine Microscopic WBC 3-5 per hpf (0-3) H 10/06/17 16:00 Ur Squamous Epith Cells Many per lpf (None-Few) H 10/06/17 16:00 Urine Bacteria Moderate per hpf (None-Few) H 10/06/17 16:00 - Clinical Findings Intake & Output: Intake & Output 10/07/17 10/07/17 10/07/17 07:59 15:59 23:59 Intake Total 2500 / 2500 1100 / 1100 Output Total 2250 / 2250 1470 / 1470 Balance 250 / 250 -370 / -370 Weight 133.6 kg - Attending Attestation I examined this patient and my medical decision-making was reviewed with the Resident Physician. I agree with the documented findings, disposition and treatment plan as described except to the extent set forth below. We independently had [id number] contact with the patient Patient seen and examined at bedside Labs, radiology, chart personally reviewed. Management was reviewed during multidisciplinary critical care rounds. DITCH CLEANER: Awake and alert following commands Pulm: Tachypnea and respiratory failure is improving acceptable oxygenation on oxygen mask which can be weaned to nasal cannula high index of suspicion for obstructive sleep apnea CPAP while sleeping and at night and needs outpatient polysomnogram if not already completed Cards: Blood pressure monitored and stable after volume resuscitation FEN-GI: Nothing by mouth for now NG tube in place surgery monitoring Renal: Urine output monitored kidney function stable ID: Severe sepsis secondary to intra-abdominal infection on broad-spectrum antimicrobials with planned to de-escalate based upon cultures and sensitivities overall patient is doing much better after volume resuscitation and antimicrobials administered over the course of the evening Heme/Onc: DVT prophylaxis per routine Endo: Glucose Monitored Integ/MSK: Skin Care per routine ICU Nursing Protocol to prevent ulcers. Lines: All lines examined without evidence of infection : Dispo[facility] CODE: Full code Pulmonary we will sign off please call with any questions I discussed my observations and recommendations directly with the general surgery team has consulted us please reconsult if question/concern arises <Piyush Huff - Last Filed: 10/07/17 17:00> Date of Encounter: 10/07/17 Time of Encounter: 08:30 Assessment and Plan (1) Fever Current Visit: Yes Status: Acute POD 8 from ex-lap and colonic anastomosis revision. -- Cont IV Abx and monitor WBC ct daily -- BC x2 peripheral venipuncture and x1 PICC pending -- Sent SANDRA fluid for C&S -- Cont monitor vitals; has been afebrile overnight after evening max temp of 103.8F on 10/06/17 -- Pt presently stable and in good condition with virtually normal vital signs ; consider transfer to medical floor within next day or two for continuation of care Qualifiers: Fever type: unspecified Qualified Code(s): R50.9 - Fever, unspecified (2) Anastomotic leak of intestine Current Visit: Yes Status: Acute Was repaired as above on 09/29/17 -- planned discharge yesterday delayed due to fever, leukocytosis, and general unwell feeling -- associated post-op ileus (3) Alteration in bowel elimination due to postoperative ileus Current Visit: Yes Status: Acute CT-abd obtained 10/06/17 demonstrated distention throughout bowel segments -- Pt NPO with NG tube (4) Metastatic colon cancer to liver Current Visit: No Status: Acute History of Present Illness Consult date: 10/07/17 Requesting physician: Samson Ly Chief complaint: Fever s/p hemicolectomy with anastomosis leak History of present illness: HPI: history of colon cancer with recent (09/23/17) right hemicolectomy, following days became painful prompting return to hospital. Exploratory laparotomy on 09/29/17 demonstrated anastomotic leak near closure site of side-by -side anastomosis, which was repaired at that time. Patient had recovered reassuringly throughout post op course until yesterday afternoon (10/06/17) when he began generally feeling unwell, began having elevated temperatures (peak of 103.8F), and leukocytosis (peak so far has been 43.4k). Surgical service reinstated antibiotics including Vanco, Flagyl, and Levaquin as well as IV Acetaminophen. Vitals stabilized in short course. This AM, patient states is comfortable. Vitals have been normal and stable overnight. Patient has no acute complaints. Antibiotic coverage per surgical team is being continued. ICU team did collect requested blood cultures, changed Acetaminophen to PRN, and collected/sent SANDRA fluid for culture for further source investigation; this was discussed with the surgical team. Patient expresses no complaints including concerns of acute pain or fever. All Systems: The remainder of the systems were reviewed and are negative Physical Examination Vital Signs: Vital Signs, Last 4 Hours Temp Pulse Resp BP Pulse Ox 10/07/17 16:09 97.9 F 81 20 105/71 97 10/07/17 15:28 80 20 112/74 100 10/07/17 14:21 97.5 F L 75 20 90/63 100 10/07/17 13:00 74 20 103/68 100 CONSTITUTIONAL: alert, follows commands, calm, pleasant, and in no acute distress HEAD: Normocephalic; grossly atraumatic. EYES: Pupils equal/round, no scleral icterus Oropharynx: pink/moist RESP: NRD without use of accessory musculature, CTA b/l CARD: Regular rhythm, borderline tachycardia; without murmurs, rubs, or gallop ABD: grossly normal, soft, no evidence of surgical site infection; purulent fluid noted in SANDRA reservoir SKIN: normal appearance, no pallor/diaphoresis,mottling,jaundice,cyanosis EXT: Rad pulses 2+ Results - Laboratory Findings CBC and BMP: 10/07/17 04:00 10/07/17 04:00 ABG ABG pH 7.48 pH Units (7.32-7.45) H 10/06/17 18: ABG pCO2 30 mmHg (35-45) L 10/06/17 18: ABG pO2 88 mmHg (85-104) 10/06/17 18: ABG O2 Saturation 98 % (95-98) 10/06/17 18: Abnormal lab findings: Abnormal lab results WBC 43.4 K/mcL (4.3-11.1) H* 10/07/17 04:00 RBC 3.47 M/mcL (4.19-5.50) L 10/07/17 04:00 Hgb 8.0 g/dL (12.9-16.9) L 10/07/17 04:00 Hct 26.1 % (37.5-50.1) L 10/07/17 04:00 MCV 75.2 fL (83.0-100.0) L 10/07/17 04:00 MCH 23.1 pg (28.0-33.3) L 10/07/17 04:00 MCHC 30.7 g/dL (31.6-35.5) L 10/07/17 04:00 RDW 21.8 % (11.5-14.5) H 10/07/17 04:00 Plt Count 455 K/mcL (140-400) H 10/07/17 04:00 Band Neutrophils % 14.0 % (0-4) H 10/07/17 04:00 Neutrophils # 39.1 K/mcL (1.6-8.9) H 10/07/17 04:00 Nucleated RBCs/100 WBC 0.1 /100 WBC (0) H 10/06/17 22:00 Hypersegmented Neuts Present (Not Present) A 10/07/17 04:00 Toxic Granulation Present (Not Present) A 10/07/17 04:00 Large Platelets Present (Not Present) A 10/07/17 04:00 Hypochromasia Present (Not Present) A 10/07/17 04:00 Poikilocytosis 1+ (Not Present) A 10/07/17 04:00 Anisocytosis 2+ (Not Present) A 10/06/17 22:00 Microcytosis Present (Not Present) A 10/01/17 04:53 Ovalocytes 1+ (Not Present) A 10/07/17 04:00 ABG pH 7.48 pH Units (7.32-7.45) H 10/06/17 18:26 ABG pCO2 30 mmHg (35-45) L 10/06/17 18:26 Carbon Dioxide 22 mEq/L (23-29) L 10/07/17 04:00 BUN 31 mg/dL (6-20) H 10/07/17 04:00 BUN/Creatinine Ratio 36 (6-26) H 10/07/17 04:00 Glucose 123 mg/dL (70-105) H 10/07/17 04:00 POC Glucose 96 (58-89) H 10/07/17 11:47 Calcium 7.9 mg/dL (8.6-10.3) L 10/07/17 04:00 Direct Bilirubin 0.3 mg/dL (0.0-0.2) H 09/28/17 22:59 AST 309 Units/L (13-39) H 10/07/17 04:00 ALT 282 Units/L (7-52) H 10/07/17 04:00 Alkaline Phosphatase 230 Units/L (34-104) H 10/07/17 04:00 Serum Total Protein 5.8 g/dL (6.4-8.9) L 10/07/17 04:00 Albumin 2.6 g/dL (3.5-5.7) L 10/07/17 04:00 Albumin/Globulin Ratio 0.8 (1.1-2.2) L 10/07/17 04:00 Prealbumin 8.6 mg/dL (17.0-34.0) L 10/03/17 04:00 Amylase 12 Units/L (29-103) L 09/28/17 22:59 Lipase 5 Units/L (11-82) L 09/28/17 22:59 Ur Specific [place] 1.028 (1.010-1.025) H 10/06/17 16:00 Urine Protein 30 mg/dL (Neg-Trace) H 10/06/17 16:00 Urine Microscopic RBC 3-5 per hpf (0-3) H 10/06/17 16:00 Urine Microscopic WBC 3-5 per hpf (0-3) H 10/06/17 16:00 Ur Squamous Epith Cells Many per lpf (None-Few) H 10/06/17 16:00 Urine Bacteria Moderate per hpf (None-Few) H 10/06/17 16:00 - Clinical Findings Intake & Output: Intake & Output 10/07/17 10/07/17 10/07/17 07:59 15:59 23:59 Intake Total 2500 / 2500 1100 / 1100 Output Total 2250 / 2250 1470 / 1470 500 / 500 Balance 250 / 250 -370 / -370 -500 / -500 Weight 133.6 kg
[2017-10-07] MEDS: Micafungin 100 MG in 0.9 % Sodium Chloride Mini Bag 100 ML IVPB SCH (18:02)
[2017-10-07] MEDS: OXYCODONE Oral CONC 10 MG/0.5 ML ORAL.SYG SL PRN (19:22)
[2017-10-07] MEDS ORDERED: Piperacillin/Tazobactam 3.375 GM in 0.9 % Sodium Chloride Mini Bag 100 ML IVPB ONE (21:55)
[2017-10-07] MEDS ORDERED: Acetaminophen IV 1,000 MG/100 ML INFUS..BTL IVPB ONE (21:55)
[2017-10-07] MEDS ORDERED: Ringers Solution, Lactated 1,000 ML IVC ONE (23:33)
[2017-10-08 01:28] LABS: Acinetobacter baumannii by PCR Not Detected (Not Detect); Candida albicans by PCR Not Detected (Not Detect); Candida glabrata by PCR Not Detected (Not Detect); Candida krusei by PCR Not Detected (Not Detect); Candida parapsilosis by PCR Not Detected (Not Detect); Candida tropicalis by PCR Not Detected (Not Detect); Enterococcus by PCR Not Detected (Not Detect); Escherichia coli by PCR Not Detected (Not Detect); Klebsiella oxytoca by PCR Not Detected (Not Detect); Klebsiella pneumoniae by PCR Not Detected (Not Detect); Pseudomonas aeruginosa by PCR Not Detected (Not Detect); Serratia marcescens by PCR Not Detected (Not Detect); Staphylococcus aureus by PCR Not Detected (Not Detect); Streptococcus agalactiae(B)PCR Not Detected (Not Detect); Streptococcus by PCR Not Detected (Not Detect); Streptococcus pneumoniae PCR Not Detected (Not Detect); Streptococcus pyogenes (A) PCR Not Detected (Not Detect); blaKPC Carbapenem-Resist Gene Not Detected (Not Detect); mecA Methicillin-Resist Gene Not Detected (Not Detect); vanA/B Vancomycin-Resist Genes Not Detected (Not Detect)
[2017-10-08] MEDS ORDERED: Ringers Solution, Lactated 1,000 ML IVC ONE (01:48)
[2017-10-08] MEDS: *HR* LORazepam 2 MG/ML VIAL IVP PRN ×4 (04:11→19:12)
[2017-10-08] MEDS: MetroNIDAZOLE 500 MG/100 ML 500 MG/100 ML BAG IVPB SCH ×3 (04:11→20:57)
[2017-10-08 04:49] LABS: Basophils % 0.1 %; Hemoglobin 7.7 g/dL (12.9-16.9); Mean Corpuscular Hemoglobin 23.2 pg (28.0-33.3); Mean Platelet Volume 10.6 fL (9.4-12.4); Red Blood Count 3.32 M/mcL (4.19-5.50)
[2017-10-08 04:50] LABS: Hematocrit 24.9 % (37.5-50.1); Immature Granulocytes % 0.9 % (0-4); Lymphocytes # 0.2 K/mcL (0.6-4.6); Lymphocytes % 0.6 %; Mean Corpuscular HGB Conc 30.9 g/dL (31.6-35.5); Monocytes # 0.3 K/mcL (0.0-1.3); Monocytes % 0.9 %; Neutrophils # 35.4 K/mcL (1.6-8.9); Platelet Count 373 K/mcL (140-400); Red Cell Distribution Width 21.7 % (11.5-14.5); Segmented Neutrophils % 97.5 %
[2017-10-08 05:08] LABS: BUN/Creatinine Ratio 27 (6-26); Blood Urea Nitrogen 27 mg/dL (6-20); Calcium 8.1 mg/dL (8.6-10.3); Carbon Dioxide 24 mEq/L (23-29); Chloride 107 mEq/L (98-107); Glucose 100 mg/dL (70-105); Osmolality,Calculated 295 (280-300); Potassium 3.5 mEq/L (3.5-5.1); Sodium 140 mEq/L (136-145); eGFR For African Americans > 60 (> 60); eGFR For Non-African Americans > 60 (> 60)
[2017-10-08 05:40] LABS: Platelet Estimate Normal (Normal)
[2017-10-08] MEDS ORDERED: Piperacillin/Tazobactam 3.375 GM in 0.9 % Sodium Chloride Mini Bag 100 ML IVPB SCH (06:00)
[2017-10-08] MEDS: Ringers Solution, Lactated 1,000 ML IVC SCH ×3 (07:46→22:39)
[2017-10-08] MEDS: Pantoprazole 40 MG VIAL IVP SCH (07:47)
[2017-10-08] MEDS: Levofloxacin 750 MG/150 ML 750 MG/150 ML BAG IVPB SCH (07:47)
[2017-10-08] MEDS ORDERED: Aminoglycoside Consult 1 EACH MC ONE (09:20)
[2017-10-08] MEDS: Acetaminophen IV 1,000 MG/100 ML INFUS..BTL IVPB PRN ×2 (13:36→20:26)
--- NOTE | 2017-10-08 15:07 | General Surgery Progress Note ---
Date of Encounter: 10/08/17 Time of Encounter: 11:30 - Assessment and Plan (1) Sepsis Current Visit: Yes Status: Acute Patient meets sepsis with leukocytosis, febrile with a temperature of >100.5, possible source of infection intra-abdominal, two positive blood cultures,and tachycardia White blood count is trending down from 43.4 to 36.3 today. Patient is still febrile and tachycardic. No respiratory distress at this time. Blood cultures preliminary report shows positive for gram-negative rods. Dr. Ly spoke with microbiology and no current ID of the organism at this time but most likely bacteroides. -CT of abdomen and pelvis on 10/07/17 showed no significant changes compared to prior study. -CXR on 10/07/17: Stable chest. Bibasilar atelectasis. -Continue IV antibiotics: Flagyl and Micafungin. Will discontinue Zosy, vancomycin, and levaquin. Will start patient on Cefoxitin. -Place NG tube to gravity -Keep NPO diet. Patient may have ONE small can (the half can) of sprite per shift. -Schedule a total of 3 doses of Toradol 15mg Q8hr. -May give patient IV Tylenol for fever -final blood culture results pending -Continue sepsis workup. Continue to monitor the patient closely. Qualifiers: Qualified Code(s): A41.9 - Sepsis, unspecified organism (2) Anastomotic leak of intestine Current Visit: Yes Status: Acute POD #9 Exploratory Laparotomy with resection of ileocolic anastomosis and a side to side, functional end to end anastomosis. Pathology from colon resection- poorly differentiated adenocarcinoma invading through pericolonic fat, margins negative, node positive; liver biopsy benign Patient was expected to be discharged yesterday. However, upon discharge Vitals showed a temperature of 101.9. Patient had sepsis with leukocytosis with a white blood count of 41.9, febrile with a rectal temperature 104.8, tachycardia, and respiratory distress. Possible source of infection may be intra-abdominal versus pneumonia. Chest CTA ruled out pulmonary embolism. CT of the abdomen and pelvis showed difffuse dilatation of large and small bowel, as well as marked distention of the stomach, which is largely fluid filled. Findings relating to recurrence seromas versus developing abscesses. Chest x- ray shows stable hypoaeration with mild lower lobe atelectasis. Lactic acid was 5.3. Patient was transferred to the ICU yesterday. White blood count is trending up. Hemoglobin is at 8.0. Patient received for units of blood yesterday. Stool guaic is negative. Repeat lactic acid yesterday was 3.2. Plan: Final blood cultures still pending. Preliminary report was positive for gram- negative otis x 2 NPO while awaiting return of bowel function continue the NG tube. Connect NG tube to gravity continue the IV antibiotics repeat lactic acid Maintain SANDRA drains Supportive care and pain control Incentive spirometer every 1 hour while awake GI prophylaxis Out of bed to chair and ambulate hallways 3 times a day with assistance A.m. labs- CBC, BMP, Mg, Phos (3) Metastatic colon cancer to liver Current Visit: No Status: Acute Oncology following Pathology- poorly differentiated adenocarcinoma invading through pericolonic fat, margins negative, node positive; liver biopsy benign (4) Obesity Current Visit: Yes Status: Chronic Qualifiers: Obesity type: due to excess calories Obesity classification: unspecified obesity classification Serious obesity comorbidity presence: unspecified whether serious comorbidity present Qualified Code(s): E66.09 - Other obesity due to excess calories (5) Hypertension Current Visit: Yes Status: Chronic We will continue to monitor and treat as necessary Qualifiers: Hypertension type: essential hypertension Qualified Code(s): I10 - Essential (primary) hypertension (6) DVT prophylaxis Current Visit: Yes Status: Acute Hold heparin for possible GI bleed EPCDs to bilateral lower extremities for DVT prophylaxis Out of bed to chair and ambulating hallways 3 times a day with assistance Subjective Patient reports: no new complaints, feels better, flatus, bowel movement (The patient admits 3 large bowel movements today. He denies any blood in his stool. ), fever (The patient admits he had a fever of 103.5 overnight. ), other (The patient denies any shortness of breath or difficulty breathing at this time. The patient states that he is hungry and would like something eat. Patient denies any nausea and vomiting.) Objective Vital Signs - Last 8 Hours Temp Pulse Resp BP Pulse Ox 10/08/17 14:14 100.8 F H 108 16 140/91 93 10/08/17 13:28 99.2 F 112 30 135/120 95 10/08/17 12:23 98.9 F 89 16 111/71 99 10/08/17 12:01 99.2 F 10/08/17 11:30 94 16 138/78 97 10/08/17 10:39 99.3 F 85 20 114/74 98 10/08/17 09:42 99.9 F H 85 12 118/81 98 10/08/17 08:42 100.7 F H 92 24 120/80 93 10/08/17 07:45 101.6 F H 93 20 128/71 95 Intake and Output 10/07/17 10/08/17 10/08/17 23:59 07:59 15:59 Intake Total 1820 / 1820 2260 / 2260 250 / 250 Output Total 1855 / 1855 1790 / 1790 825 / 825 Balance -35 / -35 470 / 470 -575 / -575 Intake: IV Fluids 1700 / 1700 2200 / 2200 250 / 250 Lactated Ringers 1,000 ML @ 125 1000 / 1000 2000 / 2000 mls/hr IVC .Q8H [facility] Rx#: [id number] Ofirmev 1,000 mg/100 ml 1,000 100 / 100 100 / 100 mg In 100 ml @ 400 mls/hr IVPB Q6H PRN Rx#:[id number] Levaquin Premix 750mg/150 mL 150 / 150 750 mg In 150 ml @ 100 mls/hr IVPB DAILY [facility] Rx#:[id number] Flagyl Premix 500 MG/100 ML 500 100 / 100 100 / 100 mg In 100 ml @ 100 mls/hr IVPB Q8H [facility] Rx#:[id number] Zosyn 3.375 GM In 0.9 % Sodium 100 / 100 Chloride (Mini-Bag +) 100 ML @ 25 mls/hr IVPB ONCE ONE Rx#: [id number] Vancocin 2,000 MG In 0.9 % 500 / 500 Sodium Chloride 500 ML @ 250 mls/hr IVPB Q12H [facility] Rx#: [id number] Oral 120 / 120 60 / 60 Output: Urine 300 / 300 575 / 575 675 / 675 Stool 400 / 400 Catheter 500 / 500 Gastric Drainage 1050 / 1050 800 / 800 150 / 150 Wound Drainage 15 / Left Other: Stool Size Small Large Moderate Stool Consistency liquid liquid liquid Stool Color Green Black Brown # Bowel Movements 2 Weight 138.7 kg Blood Glucose* 90 95 Patient Weight 10/08/17 23:59 Weight 138.7 kg - General physical appearance well developed, well nourished, no distress - Eyes PERRL, normal ocular movement - ENT dry mucosa - Neck Neck exam: trachea midline - Respiratory normal expansion, normal respiratory effort, other (decreased breath sounds in the lower bases) - Cardiovascular Cardiovascular exam: Present: tachycardia, no murmurs/rubs/gallops - Abdomen Abdomen: Present: bowel sounds present, soft, non tender, wound (SANDRA drain on the left side with small amount of purulent drainage.). Absent: distended, rebound, rigid - Incision Incision: Present: clean and dry, intact. Absent: draining, purulent - Integumentary no rash, no abnormal pigmentation - Neurologic CN 2-12 grossly intact - Psychiatric oriented to time, oriented to person, oriented to place - Labs 10/08/17 04:36 10/08/17 04:36 Diabetes panel 10/08/17 Range/Units 04:36 Sodium 140 (136-145) mEq/L Potassium 3.5 (3.5-5.1) mEq/L Chloride 107 (98-107) mEq/L Carbon Dioxide 24 (23-29) mEq/L BUN 27 H (6-20) mg/dL Creatinine 1.01 (0.70-1.30) mg/dL Glucose 100 (70-105) mg/dL Calcium 8.1 L (8.6-10.3) mg/dL Calcium panel 10/08/17 Range/Units 04:36 Calcium 8.1 L (8.6-10.3) mg/dL Pituitary panel 10/08/17 Range/Units 04:36 Sodium 140 (136-145) mEq/L Potassium 3.5 (3.5-5.1) mEq/L Chloride 107 (98-107) mEq/L Carbon Dioxide 24 (23-29) mEq/L BUN 27 H (6-20) mg/dL Creatinine 1.01 (0.70-1.30) mg/dL Glucose 100 (70-105) mg/dL Calcium 8.1 L (8.6-10.3) mg/dL Adrenal panel 10/08/17 Range/Units 04:36 Sodium 140 (136-145) mEq/L Potassium 3.5 (3.5-5.1) mEq/L Chloride 107 (98-107) mEq/L Carbon Dioxide 24 (23-29) mEq/L BUN 27 H (6-20) mg/dL Creatinine 1.01 (0.70-1.30) mg/dL Glucose 100 (70-105) mg/dL Calcium 8.1 L (8.6-10.3) mg/dL - VTE Documentation of Mechanical Device: Intermittent pneumatic compression device Consult Discharge Plan - Plan Instructions: Jerry-Velásquez Drain Care (DC), Colectomy (DC) Additional Instructions: General Surgical Discharge Instructions 1. No pushing, pulling, or lifting greater than 15 lbs for 4 weeks (depending upon procedure). 2. You may shower beginning today, but no tub baths, soaking, or swimming for 2 weeks. 3. You may resume driving when you are off narcotics and are safe to react in a car. 4. Take ibuprofen every 8 hours for discomfort. If this does not relieve discomfort, you may take the as needed Percocet. Take narcotics as directed. Do not take more narcotics then directed and do not share your narcotics with any other person. Do not drink alcohol while on narcotics. 5. Take stool softeners (Colace) or a water based laxative (Miralax) while taking narcotics. You may hold for loose stools. 6. Report any fevers greater than 100.5F, increase abdominal discomfort, drainage that looks like pus, increased redness or pain at the surgical site, or any vomiting. 7. Report any pain in the calves, shortness of breath, or rapid heartbeat. 8. Follow-up in the office as directed. 9. If you were prescribed antibiotics, do not stop them without talking to your provider. 10. Do not let the SANDRA drain dangle from your body. Safety pin the drain to your clothing when you're up and about. Suspended drain on a lanyard or other such necklace when you shower. 11. SANDRA wound care: remove dressing's. Shower daily with antibacterial soap. Replace split gauze dressing and tape to secure. Empty the drainage in your SANDRA at least daily and record this on the form provided to you. She drip the SANDRA drain line twice-daily. Drink at least 3 protein supplements every day. This is vital for ensuring you are getting enough nutrition so that your body can heal. Referrals: Meg Venegas CNP [Primary Care Provider] - 10/11/17 9:15 am Jayden Galvin MD [Partnered Physician] - 10/28/17 10:30 am (2 weeks) Radha Baker CNP [Advanced Practice Nurse] - 10/13/17 8:45 am Prescriptions: Amoxicillin/Clavulanate [Augmentin] 875 mg PO BIDWM #20 tablet Fluconazole [Diflucan] 100 mg PO DAILY #5 tablet OxyCODONE/APAP 5/325 [Percocet 5/325 MG] 1 tab PO Q6H PRN 7 Days #28 tablet PRN Reason: Postoperative pain Polyethylene Glycol 3350 [MiraLAX] 17 gm PO DAILY PRN #30 powd.pack PRN Reason: Constipation
[2017-10-08] MEDS: cefOXitin 2,000 MG in Water for inj. (sterile) 20 ML 20 ML IVP SCH ×2 (15:26→23:48)
[2017-10-08] MEDS: Ketorolac 15 MG/ML VIAL IVP SCH ×2 (15:26→23:48)
[2017-10-08] MEDS: Micafungin 100 MG in 0.9 % Sodium Chloride Mini Bag 100 ML IVPB SCH (17:16)
[2017-10-08] MEDS ORDERED: *HR* LORazepam 2 MG/ML VIAL IVP ONE (20:23)
[2017-10-09] MEDS: *HR* LORazepam 2 MG/ML VIAL IVP PRN (03:50)
[2017-10-09] MEDS: MetroNIDAZOLE 500 MG/100 ML 500 MG/100 ML BAG IVPB SCH ×3 (03:50→19:34)
[2017-10-09] MEDS: Ringers Solution, Lactated 1,000 ML IVC SCH ×3 (07:50→23:38)
[2017-10-09] MEDS: cefOXitin 2,000 MG in Water for inj. (sterile) 20 ML 20 ML IVP SCH ×3 (07:50→23:13)
[2017-10-09] MEDS: Ketorolac 15 MG/ML VIAL IVP SCH (07:50)
[2017-10-09] MEDS: Pantoprazole 40 MG VIAL IVP SCH (07:50)
[2017-10-09 08:27] LABS: Hematocrit 25.8 % (37.5-50.1); Hemoglobin 7.6 g/dL (12.9-16.9); Lymphocytes # 0.7 K/mcL (0.6-4.6); Mean Corpuscular HGB Conc 29.5 g/dL (31.6-35.5); Mean Corpuscular Hemoglobin 22.6 pg (28.0-33.3); Mean Corpuscular Volume 76.6 fL (83.0-100.0); Mean Platelet Volume 11.6 fL (9.4-12.4); Platelet Count 144 K/mcL (140-400); Red Blood Count 3.37 M/mcL (4.19-5.50); Red Cell Distribution Width 22.1 % (11.5-14.5)
[2017-10-09 08:59] LABS: Blood Urea Nitrogen 23 mg/dL (6-20); Carbon Dioxide 27 mEq/L (23-29); Chloride 110 mEq/L (98-107); Glucose 103 mg/dL (70-105); Monocytes # 0.5 K/mcL (0.0-1.3); Neutrophils # 10.8 K/mcL (1.6-8.9); Osmolality,Calculated 296 (280-300); Platelet Estimate Normal (Normal); Potassium 3.4 mEq/L (3.5-5.1); Sodium 141 mEq/L (136-145)
[2017-10-09 09:41] LABS: BUN/Creatinine Ratio 35 (6-26); Calcium 7.9 mg/dL (8.6-10.3); eGFR For African Americans > 60 (> 60); eGFR For Non-African Americans > 60 (> 60)
--- NOTE | 2017-10-09 13:25 | General Surgery Progress Note ---
Date of Encounter: 10/09/17 Time of Encounter: 09:50 - Assessment and Plan (1) Sepsis Current Visit: Yes Status: Acute Patient meets sepsis with leukocytosis, febrile with a temperature of >100.5, possible source of infection intra-abdominal, two positive blood cultures,and tachycardia White blood count is trending down from 43.4 to 36.3 to 12.0 today. Patient is afebrile at this time but was febrile overnight witha temperature up to 103. No respiratory distress at this time. Blood cultures preliminary report shows positive for anerobic gram-negative rods. Microbiology states that it is most likely bacteroides. -CT of abdomen and pelvis on 10/07/17 showed no significant changes compared to prior study. -CXR on 10/07/17: Stable chest. Bibasilar atelectasis. -Will order XR acute abdominal series -Continue IV antibiotics: Flagyl and Micafungin and Cefoxitin. -Continue NG tube at this time. Plan to possibly discontinue NG tube if XR acute abdominal series is normal. -Clear liquid diet. May advance to full liquid diet if XR acute abdominal series is normal. -May give patient IV Tylenol for fever -final blood culture results pending -preliminary report of the blood culture from the PICC and port are negative -Continue sepsis workup. Continue to monitor the patient closely. Qualifiers: Qualified Code(s): A41.9 - Sepsis, unspecified organism (2) Anastomotic leak of intestine Current Visit: Yes Status: Acute POD #10 Exploratory Laparotomy with resection of ileocolic anastomosis and a side to side, functional end to end anastomosis. Pathology from colon resection- poorly differentiated adenocarcinoma invading through pericolonic fat, margins negative, node positive; liver biopsy benign Plan: Final blood cultures still pending. Preliminary report was positive for anerobic gram-negative otis x 2 Clear liquid diet. May advance to full liquid if XR acute abdominal series is appropiate. continue the NG tube. Plan to discontinued the NG tube pending acute abdominal series result. continue the IV antibiotics Maintain SANDRA drains Supportive care and pain control Incentive spirometer every 1 hour while awake GI prophylaxis Out of bed to chair and ambulate hallways 3 times a day with assistance A.m. labs- CBC, BMP, (3) Metastatic colon cancer to liver Current Visit: No Status: Acute Oncology following Pathology- poorly differentiated adenocarcinoma invading through pericolonic fat, margins negative, node positive; liver biopsy benign (4) Obesity Current Visit: Yes Status: Chronic Qualifiers: Obesity type: due to excess calories Obesity classification: unspecified obesity classification Serious obesity comorbidity presence: unspecified whether serious comorbidity present Qualified Code(s): E66.09 - Other obesity due to excess calories (5) Hypertension Current Visit: Yes Status: Chronic We will continue to monitor and treat as necessary Qualifiers: Hypertension type: essential hypertension Qualified Code(s): I10 - Essential (primary) hypertension (6) DVT prophylaxis Current Visit: Yes Status: Acute Hold heparin for possible GI bleed EPCDs to bilateral lower extremities for DVT prophylaxis Out of bed to chair and ambulating hallways 3 times a day with assistance Subjective Patient reports: no new complaints, feels better, tolerating liquids well (He admits tolerating the Sprite without any difficulty, nausea, and vomiting. Patient states he would feel better if his diet is advanced. ), flatus, bowel movement (He admits he had large bowel movements that were liquid. He denies any blood in his stool. ), afebrile (Patient admits he was febrile overnight with a temperature up to 103. He stated that he began shivering a lot with the fevers. He denies any diaphoresis. ) Objective Vital Signs - Last 8 Hours Temp Pulse Resp BP Pulse Ox 10/09/17 13:00 87 16 117/69 98 10/09/17 12:17 98.0 F 10/09/17 11:00 98.2 F 90 20 110/90 98 10/09/17 10:00 98.7 F 91 24 106/75 97 10/09/17 09:00 98.5 F 84 21 118/73 98 10/09/17 08:20 87 10/09/17 08:18 98.6 F 10/09/17 08:00 98.2 F 81 20 135/94 100 10/09/17 07:00 82 22 126/91 99 10/09/17 06:00 99.3 F 94 22 130/101 98 Intake and Output 10/08/17 10/09/17 10/09/17 23:59 07:59 15:59 Intake Total 1520 / 1520 1170 / 1170 500 / 500 Output Total 220 / 220 735 / 735 830 / 830 Balance 1300 / 1300 435 / 435 -330 / -330 Intake: IV Fluids 1220 / 1220 1120 / 1120 500 / 500 Lactated Ringers 1,000 ML @ 125 1000 / 1000 1000 / 1000 500 / 500 mls/hr IVC .Q8H [facility] Rx#: [id number] Mefoxin 2,000 MG In Water for 20 / 20 20 / 20 inj. (sterile) 20 ML @ 300 mls/ hr IVP Q8HR [facility] Rx#:[id number] Ofirmev 1,000 mg/100 ml 1,000 100 / 100 mg In 100 ml @ 400 mls/hr IVPB Q6H PRN Rx#:[id number] Flagyl Premix 500 MG/100 ML 500 100 / 100 100 / 100 mg In 100 ml @ 100 mls/hr IVPB Q8H [facility] Rx#:[id number] Oral 300 / 300 50 / 50 Output: Urine 50 / 50 350 / 350 Gastric Drainage 160 / 160 375 / 375 800 / 800 Wound Drainage Left Other: # Bowel Movements 0 Blood Glucose* 93 91 107 - General physical appearance well developed, well nourished, no distress - Eyes PERRL, normal ocular movement - ENT normal mucosa - Neck Neck exam: trachea midline - Respiratory normal expansion, normal respiratory effort, other (decreased breath sounds in the lower bases) - Cardiovascular Cardiovascular exam: Present: RRR, no murmurs/rubs/gallops - Abdomen Abdomen: Present: bowel sounds present, soft, non tender, wound (SANDRA drain on the left side with small amount of purulent drainage.) - Incision Incision: Present: clean and dry, intact. Absent: draining, purulent - Integumentary no rash, no abnormal pigmentation - Neurologic CN 2-12 grossly intact, other (Per nurse, patient was confused this morning. Patient was AOx3 on my exam. ) - Psychiatric oriented to time, oriented to person, oriented to place - Labs 10/09/17 08:12 10/09/17 08:12 Diabetes panel 10/09/17 Range/Units 08:12 Sodium 141 (136-145) mEq/L Potassium 3.4 L (3.5-5.1) mEq/L Chloride 110 H (98-107) mEq/L Carbon Dioxide 27 (23-29) mEq/L BUN 23 H (6-20) mg/dL Creatinine 0.65 L (0.70-1.30) mg/dL Glucose 103 (70-105) mg/dL Calcium 7.9 L (8.6-10.3) mg/dL Calcium panel 10/09/17 Range/Units 08:12 Calcium 7.9 L (8.6-10.3) mg/dL Pituitary panel 10/09/17 Range/Units 08:12 Sodium 141 (136-145) mEq/L Potassium 3.4 L (3.5-5.1) mEq/L Chloride 110 H (98-107) mEq/L Carbon Dioxide 27 (23-29) mEq/L BUN 23 H (6-20) mg/dL Creatinine 0.65 L (0.70-1.30) mg/dL Glucose 103 (70-105) mg/dL Calcium 7.9 L (8.6-10.3) mg/dL Adrenal panel 10/09/17 Range/Units 08:12 Sodium 141 (136-145) mEq/L Potassium 3.4 L (3.5-5.1) mEq/L Chloride 110 H (98-107) mEq/L Carbon Dioxide 27 (23-29) mEq/L BUN 23 H (6-20) mg/dL Creatinine 0.65 L (0.70-1.30) mg/dL Glucose 103 (70-105) mg/dL Calcium 7.9 L (8.6-10.3) mg/dL - VTE Documentation of Mechanical Device: Intermittent pneumatic compression device Consult Discharge Plan - Plan Instructions: Jerry-Velásquez Drain Care (DC), Colectomy (DC) Additional Instructions: General Surgical Discharge Instructions 1. No pushing, pulling, or lifting greater than 15 lbs for 4 weeks (depending upon procedure). 2. You may shower beginning today, but no tub baths, soaking, or swimming for 2 weeks. 3. You may resume driving when you are off narcotics and are safe to react in a car. 4. Take ibuprofen every 8 hours for discomfort. If this does not relieve discomfort, you may take the as needed Percocet. Take narcotics as directed. Do not take more narcotics then directed and do not share your narcotics with any other person. Do not drink alcohol while on narcotics. 5. Take stool softeners (Colace) or a water based laxative (Miralax) while taking narcotics. You may hold for loose stools. 6. Report any fevers greater than 100.5F, increase abdominal discomfort, drainage that looks like pus, increased redness or pain at the surgical site, or any vomiting. 7. Report any pain in the calves, shortness of breath, or rapid heartbeat. 8. Follow-up in the office as directed. 9. If you were prescribed antibiotics, do not stop them without talking to your provider. 10. Do not let the SANDRA drain dangle from your body. Safety pin the drain to your clothing when you're up and about. Suspended drain on a lanyard or other such necklace when you shower. 11. SANDRA wound care: remove dressing's. Shower daily with antibacterial soap. Replace split gauze dressing and tape to secure. Empty the drainage in your SANDRA at least daily and record this on the form provided to you. She drip the SANDRA drain line twice-daily. Drink at least 3 protein supplements every day. This is vital for ensuring you are getting enough nutrition so that your body can heal. Referrals: Meg Venegas CNP [Primary Care Provider] - 10/11/17 9:15 am Jayden Galvin MD [Partnered Physician] - 10/28/17 10:30 am (2 weeks) Radha Baker CNP [Advanced Practice Nurse] - 10/13/17 8:45 am Prescriptions: Amoxicillin/Clavulanate [Augmentin] 875 mg PO BIDWM #20 tablet Fluconazole [Diflucan] 100 mg PO DAILY #5 tablet OxyCODONE/APAP 5/325 [Percocet 5/325 MG] 1 tab PO Q6H PRN 7 Days #28 tablet PRN Reason: Postoperative pain Polyethylene Glycol 3350 [MiraLAX] 17 gm PO DAILY PRN #30 powd.pack PRN Reason: Constipation
[2017-10-09] MEDS: Micafungin 100 MG in 0.9 % Sodium Chloride Mini Bag 100 ML IVPB SCH (17:45)
[2017-10-09] MEDS: OXYCODONE Oral CONC 10 MG/0.5 ML ORAL.SYG SL PRN (20:20)
[2017-10-10] MEDS: Acetaminophen IV 1,000 MG/100 ML INFUS..BTL IVPB PRN (02:07)
[2017-10-10 03:10] LABS: Basophils % 0.1 %; Eosinophils % 0.3 %; Hemoglobin 7.6 g/dL (12.9-16.9); Red Cell Distribution Width 22.4 % (11.5-14.5)
[2017-10-10 03:11] LABS: Hematocrit 24.8 % (37.5-50.1); Immature Granulocytes % 0.6 % (0-4); Immature Platelets 9.5 % (1.1-6.1); Lymphocytes # 0.8 K/mcL (0.6-4.6); Lymphocytes % 7.4 %; Mean Corpuscular HGB Conc 30.6 g/dL (31.6-35.5); Mean Corpuscular Volume 74.9 fL (83.0-100.0); Mean Platelet Volume 11.4 fL (9.4-12.4); Monocytes # 0.6 K/mcL (0.0-1.3); Monocytes % 6.1 %; Neutrophils # 8.7 K/mcL (1.6-8.9); Platelet Count 168 K/mcL (140-400); Red Blood Count 3.31 M/mcL (4.19-5.50); Segmented Neutrophils % 85.5 %
[2017-10-10] MEDS: MetroNIDAZOLE 500 MG/100 ML 500 MG/100 ML BAG IVPB SCH ×3 (03:11→22:37)
[2017-10-10 03:29] LABS: BUN/Creatinine Ratio 33 (6-26); Blood Urea Nitrogen 19 mg/dL (6-20); Calcium 7.8 mg/dL (8.6-10.3); Carbon Dioxide 27 mEq/L (23-29); Chloride 107 mEq/L (98-107); Glucose 106 mg/dL (70-105); Osmolality,Calculated 293 (280-300); Potassium 3.2 mEq/L (3.5-5.1); Sodium 140 mEq/L (136-145); eGFR For African Americans > 60 (> 60); eGFR For Non-African Americans > 60 (> 60)
[2017-10-10 03:39] LABS: Platelet Estimate Normal (Normal)
[2017-10-10 03:40] LABS: Anisocytosis 2+ (Not Present); Microcytosis Present (Not Present)
[2017-10-10] MEDS: 0.9 % Sodium Chloride 1,000 ML IVC SCH ×7 (07:18→08:09)
[2017-10-10] MEDS: Pantoprazole 40 MG in 0.9 % Sodium Chloride Mini Bag 100 ML IVC SCH (08:09)
[2017-10-10] MEDS: Pantoprazole 40 MG VIAL IVP SCH (08:18)
[2017-10-10] MEDS: cefOXitin 2,000 MG in Water for inj. (sterile) 20 ML 20 ML IVP SCH ×2 (08:18→17:04)
[2017-10-10] MEDS: Ringers Solution, Lactated 1,000 ML IVC SCH ×3 (08:19→22:38)
--- NOTE | 2017-10-10 08:49 | General Surgery Progress Note ---
Date of Encounter: 10/10/17 Time of Encounter: 08:30 - Assessment and Plan (1) Anastomotic leak of intestine Current Visit: Yes Status: Acute POD #11 Exploratory Laparotomy, Robotic Sigmoid colectomy with takedown of splenic flexure and a 29 mm EEA stapling with Dr. Ly Pathology- - Enterocolic anastomosis. - Serositis and fat necrosis involving colon, small intestine and omentum. Pathology from initial colon resection- poorly differentiated adenocarcinoma invading through pericolonic fat, margins negative, node positive 4 of 18; liver biopsy benign Remove NG today Clear liquid diet and protein supplements Continue TPN at goal IV antibiotics- Cefoxitin, Flagyl Antifungal- Micofungin Maintain SANDRA drains X 1 Supportive care and pain control Incentive spirometer every 1 hour while awake GI prophylaxis Out of bed to chair and ambulate hallways 3 times a day with assistance Repeat am labs- cbc, bmp (2) Sepsis Current Visit: Yes Status: Acute Initial blood cultures 10/06/17 growing gram negative rods- identification pending Repeat blood cultures 10/07/17 negative at this time All further work-up has been negative Continue Cefoxitin, Flagyl, Micofungin WBC normalized today- 10.2 Qualifiers: Sepsis type: sepsis due to unspecified organism Qualified Code(s): A41.9 - Sepsis, unspecified organism (3) Metastatic colon cancer to liver Current Visit: No Status: Acute Postoperative day #17 from a Robotic Right colectomy; liver biopsy and Aport placement with Dr. Ly Oncology following Pathology- poorly differentiated adenocarcinoma invading through pericolonic fat, margins negative, node positive 4 of 18; liver biopsy benign (4) Hypertension Current Visit: Yes Status: Chronic We will continue to monitor and treat as necessary Qualifiers: Hypertension type: essential hypertension Qualified Code(s): I10 - Essential (primary) hypertension (5) Obesity Current Visit: Yes Status: Chronic Qualifiers: Obesity type: due to excess calories Obesity classification: unspecified obesity classification Serious obesity comorbidity presence: unspecified whether serious comorbidity present Qualified Code(s): E66.09 - Other obesity due to excess calories (6) DVT prophylaxis Current Visit: Yes Status: Acute Heparin 5000 units subcutaneous twice daily EPCDs to bilateral lower extremities for DVT prophylaxis Out of bed to chair and ambulating hallways 3 times a day with assistance (7) Hypokalemia Current Visit: Yes Status: Acute Potassium- 3.2 Replace potassium today Repeat am labs Subjective Patient reports: no new complaints, feels better, tolerating liquids well (sips of water), voiding w/o difficulty, flatus, bowel movement, diarrhea, blood in stool, fever (Tmax 100; Tcurrent 99.5) Objective Vital Signs - Last 8 Hours Temp Pulse Resp BP Pulse Ox 10/10/17 08:00 94 18 97 10/10/17 06:01 94 15 135/92 100 10/10/17 05:00 98 15 134/87 100 10/10/17 04:48 99.5 F 10/10/17 04:00 101 20 139/95 100 10/10/17 03:00 109 19 147/68 97 10/10/17 02:00 111 15 149/101 97 10/10/17 01:00 105 18 154/97 97 Intake and Output 10/09/17 10/10/17 10/10/17 23:59 07:59 15:59 Intake Total 400 / 400 200 / 200 1120 / 1120 Output Total 750 / 750 615 / 615 Balance -350 / -350 -415 / -415 1120 / 1120 Intake: IV Fluids 220 / 220 100 / 100 1120 / 1120 Lactated Ringers 1,000 ML @ 75 1000 / 1000 mls/hr IVC .[id number] [facility] Rx#: [id number] Mefoxin 2,000 MG In Water for inj. (sterile) 20 ML @ 300 mls/ hr IVP Q8HR [facility] Rx#:[id number] Ofirmev 1,000 mg/100 ml 1,000 100 / 100 mg In 100 ml @ 400 mls/hr IVPB Q6H PRN Rx#:[id number] Flagyl Premix 500 MG/100 ML 500 100 / 100 100 / 100 mg In 100 ml @ 100 mls/hr IVPB Q8H [facility] Rx#:[id number] Mycamine 100 MG In 0.9 % Sodium 100 / 100 Chloride (Mini-Bag +) 100 ML @ 100 mls/hr IVPB QPM [facility] Rx#: [id number] Oral 180 / 180 100 / 100 Output: Urine 700 / 700 600 / 600 Wound Drainage 50 / 50 15 / 15 Left 50 / 50 15 / 15 Other: Stool Size Small Moderate Stool Consistency liquid liquid Stool Color Dark Red Blood Black Weight 137 kg Blood Glucose* 86 - General physical appearance well developed, no distress, obese - Eyes normal ocular movement - ENT normal mucosa, atraumatic, normocephalic - Neck Neck exam: trachea midline - Respiratory normal respiratory effort, clear to auscultation, other (diminished bibasilar bases; moist, productive cough noted) - Cardiovascular Cardiovascular exam: Present: RRR - Abdomen Abdomen: Present: bowel sounds present (hyperactive), soft, non tender, wound ( NG tube clamped; LLQ SANDRA drain with serousang. drainage noted) - Incision Incision: Present: clean and dry, intact - Neurologic CN 2-12 grossly intact - Musculoskeletal other (physical deconditioning noted) - Psychiatric oriented to time, oriented to person, oriented to place, speech is normal, memory intact - Labs 10/10/17 03:00 10/10/17 03:00 Diabetes panel 10/09/17 10/10/17 Range/Units 08:12 03:00 Sodium 141 140 (136-145) mEq/L Potassium 3.4 L 3.2 L (3.5-5.1) mEq/L Chloride 110 H 107 (98-107) mEq/L Carbon Dioxide 27 27 (23-29) mEq/L BUN 23 H 19 (6-20) mg/dL Creatinine 0.65 L 0.58 L (0.70-1.30) mg/dL Glucose 103 106 H (70-105) mg/dL Calcium 7.9 L 7.8 L (8.6-10.3) mg/dL Calcium panel 10/09/17 10/10/17 Range/Units 08:12 03:00 Calcium 7.9 L 7.8 L (8.6-10.3) mg/dL Pituitary panel 10/09/17 10/10/17 Range/Units 08:12 03:00 Sodium 141 140 (136-145) mEq/L Potassium 3.4 L 3.2 L (3.5-5.1) mEq/L Chloride 110 H 107 (98-107) mEq/L Carbon Dioxide 27 27 (23-29) mEq/L BUN 23 H 19 (6-20) mg/dL Creatinine 0.65 L 0.58 L (0.70-1.30) mg/dL Glucose 103 106 H (70-105) mg/dL Calcium 7.9 L 7.8 L (8.6-10.3) mg/dL Adrenal panel 10/09/17 10/10/17 Range/Units 08:12 03:00 Sodium 141 140 (136-145) mEq/L Potassium 3.4 L 3.2 L (3.5-5.1) mEq/L Chloride 110 H 107 (98-107) mEq/L Carbon Dioxide 27 27 (23-29) mEq/L BUN 23 H 19 (6-20) mg/dL Creatinine 0.65 L 0.58 L (0.70-1.30) mg/dL Glucose 103 106 H (70-105) mg/dL Calcium 7.9 L 7.8 L (8.6-10.3) mg/dL - Imaging Chest x-ray: report reviewed Abdominal x-ray: report reviewed Additional Studies: Chest/Abdomen X-ray 10/10/17 06:00 IMPRESSION: No evidence for acute cardiopulmonary process. Stable bowel gas pattern with mild gaseous distention of both large and small bowel, likely reflecting an ileus. D/ / 10/10/2017 08:30:24 Zachary Pierce MD / krystal Interpreting Provider: Zachary Pierce MD - VTE Documentation of Mechanical Device: Intermittent pneumatic compression device Consult Discharge Plan - Plan Instructions: Jerry-Velásquez Drain Care (DC), Colectomy (DC) Additional Instructions: General Surgical Discharge Instructions 1. No pushing, pulling, or lifting greater than 15 lbs for 4 weeks (depending upon procedure). 2. You may shower beginning today, but no tub baths, soaking, or swimming for 2 weeks. 3. You may resume driving when you are off narcotics and are safe to react in a car. 4. Take ibuprofen every 8 hours for discomfort. If this does not relieve discomfort, you may take the as needed Percocet. Take narcotics as directed. Do not take more narcotics then directed and do not share your narcotics with any other person. Do not drink alcohol while on narcotics. 5. Take stool softeners (Colace) or a water based laxative (Miralax) while taking narcotics. You may hold for loose stools. 6. Report any fevers greater than 100.5F, increase abdominal discomfort, drainage that looks like pus, increased redness or pain at the surgical site, or any vomiting. 7. Report any pain in the calves, shortness of breath, or rapid heartbeat. 8. Follow-up in the office as directed. 9. If you were prescribed antibiotics, do not stop them without talking to your provider. 10. Do not let the SANDRA drain dangle from your body. Safety pin the drain to your clothing when you're up and about. Suspended drain on a lanyard or other such necklace when you shower. 11. SANDRA wound care: remove dressing's. Shower daily with antibacterial soap. Replace split gauze dressing and tape to secure. Empty the drainage in your SANDRA at least daily and record this on the form provided to you. She drip the SANDRA drain line twice-daily. Drink at least 3 protein supplements every day. This is vital for ensuring you are getting enough nutrition so that your body can heal. Referrals: Meg Venegas CNP [Primary Care Provider] - 10/11/17 9:15 am Jayden Galvin MD [Partnered Physician] - 10/28/17 10:30 am (2 weeks) Radha Baker CNP [Advanced Practice Nurse] - 10/13/17 8:45 am Prescriptions: Amoxicillin/Clavulanate [Augmentin] 875 mg PO BIDWM #20 tablet Fluconazole [Diflucan] 100 mg PO DAILY #5 tablet OxyCODONE/APAP 5/325 [Percocet 5/325 MG] 1 tab PO Q6H PRN 7 Days #28 tablet PRN Reason: Postoperative pain Polyethylene Glycol 3350 [MiraLAX] 17 gm PO DAILY PRN #30 powd.pack PRN Reason: Constipation - Attending Attestation For this encounter, I have reviewed the HE[employer]OMOTION SPECIALIST or PA documentation, treatment plan, and medical decision making; and I have had face to face time with this patient.
[2017-10-10] MEDS ORDERED: Potassium Chloride 40 MEQ, Lidocaine 1% 2 ML in D5% in Water 500 ML IVPB ONE ×2 (09:01→09:21)
[2017-10-10] MEDS ORDERED: OXYCODONE Oral CONC 10 MG/0.5 ML ORAL.SYG SL PRN ×2 (09:21)
[2017-10-10] MEDS ORDERED: Acetaminophen IV 1,000 MG/100 ML INFUS..BTL IVPB PRN (09:21)
[2017-10-10] MEDS ORDERED: Naloxone 0.4 MG/ML INJ IVP PRN (09:21)
[2017-10-10] MEDS ORDERED: D10% in Water 500 ML IVC PRN (09:21)
[2017-10-10] MEDS: Micafungin 100 MG in 0.9 % Sodium Chloride Mini Bag 100 ML IVPB SCH (17:05)
[2017-10-10] MEDS: *HR* Heparin 5,000 UNIT/ML VIAL SQ SCH (18:34)
[2017-10-11] MEDS: cefOXitin 2,000 MG in Water for inj. (sterile) 20 ML 20 ML IVP SCH ×4 (00:02→23:15)
[2017-10-11] MEDS: *HR* Heparin 5,000 UNIT/ML VIAL SQ SCH ×2 (05:54→18:35)
[2017-10-11] MEDS: MetroNIDAZOLE 500 MG/100 ML 500 MG/100 ML BAG IVPB SCH ×3 (05:54→19:57)
[2017-10-11 07:37] LABS: BUN/Creatinine Ratio 19 (6-26); Blood Urea Nitrogen 10 mg/dL (6-20); Calcium 7.9 mg/dL (8.6-10.3); Carbon Dioxide 26 mEq/L (23-29); Chloride 106 mEq/L (98-107); Glucose 123 mg/dL (70-105); Osmolality,Calculated 284 (280-300); Potassium 3.4 mEq/L (3.5-5.1); Sodium 137 mEq/L (136-145); eGFR For African Americans > 60 (> 60); eGFR For Non-African Americans > 60 (> 60)
[2017-10-11 07:45] LABS: Basophils % 0.2 %; Eosinophils % 0.3 %; Hemoglobin 7.4 g/dL (12.9-16.9); Immature Platelets 8.7 % (1.1-6.1); Lymphocytes # 1.2 K/mcL (0.6-4.6); Mean Corpuscular HGB Conc 30.8 g/dL (31.6-35.5); Mean Corpuscular Hemoglobin 23.1 pg (28.0-33.3); Monocytes # 0.9 K/mcL (0.0-1.3); Monocytes % 7.5 %; Platelet Count 222 K/mcL (140-400); Red Cell Distribution Width 23.3 % (11.5-14.5)
[2017-10-11] MEDS: Pantoprazole 40 MG VIAL IVP SCH (08:27)
[2017-10-11 08:43] LABS: Anisocytosis 2+ (Not Present); Microcytosis Present (Not Present); Platelet Estimate Normal (Normal); Reactive Lymphocytes Present (Not Present)
--- NOTE | 2017-10-11 09:42 | General Surgery Progress Note ---
Date of Encounter: 10/11/17 Time of Encounter: 09:00 - Assessment and Plan (1) Sepsis Current Visit: Yes Status: Acute Patient met sepsis on 10/06/17 with leukocytosis, febrile with a temperature of >100.5, possible source of infection intra-abdominal, two positive blood cultures,and tachycardia White blood count is trending down and is 12.3 today. Yesterday WBC was 10.2. Patient is afebrile but is tachycardic on exam. No respiratory distress at this time. Initial blood cultures 10/06/17 -growing gram negative rods x 2- identification pending Repeat blood cultures 10/07/17 -negative at this time All further work-up has been negative Continue antibiotics- Cefoxitin, Flagyl, Micofungin Will order scheduled DuoNebs q6h due to wheezing and course breath sounds on lung auscultation May advance to full liquid diet today May give patient IV Tylenol for fever Continue to monitor the patient closely. Qualifiers: Sepsis type: sepsis due to unspecified organism Qualified Code(s): A41.9 - Sepsis, unspecified organism (2) Anastomotic leak of intestine Current Visit: Yes Status: Acute POD #12 Exploratory Laparotomy with resection of ileocolic anastomosis and a side to side, functional end to end anastomosis. Pathology- - Enterocolic anastomosis. Serositis and fat necrosis involving colon, small intestine and omentum. Pathology from initial colon resection- poorly differentiated adenocarcinoma invading through pericolonic fat, margins negative, node positive 4 of 18; liver biopsy benign Plan: Advance to full liquid Continue TPN at goal IV antibiotics- Cefoxitin, Flagyl Antifungal- Micofungin Maintain SANDRA drains X 1 Supportive care and pain control Incentive spirometer every 1 hour while awake GI prophylaxis Out of bed to chair and ambulate hallways 3 times a day with assistance Repeat am labs- cbc, bmp (3) Metastatic colon cancer to liver Current Visit: No Status: Acute Postoperative day #18 from a Robotic Right colectomy; liver biopsy and Aport placement with Dr. Ly Oncology following Pathology- poorly differentiated adenocarcinoma invading through pericolonic fat, margins negative, node positive; liver biopsy benign (4) Obesity Current Visit: Yes Status: Chronic Qualifiers: Obesity type: due to excess calories Obesity classification: unspecified obesity classification Serious obesity comorbidity presence: unspecified whether serious comorbidity present Qualified Code(s): E66.09 - Other obesity due to excess calories (5) Hypertension Current Visit: Yes Status: Chronic We will continue to monitor and treat as necessary. Qualifiers: Hypertension type: essential hypertension Qualified Code(s): I10 - Essential (primary) hypertension (6) DVT prophylaxis Current Visit: Yes Status: Acute Heparin 5000 units subcutaneous twice daily EPCDs to bilateral lower extremities for DVT prophylaxis Out of bed to chair and ambulating hallways 3 times a day with assistance Subjective Patient reports: no new complaints (The patient has no concerns at this time. He does states he still has some throat pain that he contributes to the placement of the NG tube over the weekend.), feels better (The patient states he feels better today compared to yesterday. ), pain is less, tolerating liquids well (He is tolerating his liquid diet while without any difficulty, nausea, and vomiting. He would like his diet advance if possible.), flatus, bowel movement (The patient admits two bowel movements this morning without any blood.), afebrile (He denies any fever overnight.) Objective Vital Signs - Last 8 Hours Temp Pulse Resp BP Pulse Ox 10/11/17 04:51 98.5 F 102 14 131/91 95 Intake and Output 10/10/17 10/11/17 10/11/17 23:59 07:59 15:59 Intake Total 120 / 120 20 / 20 Output Total 550 / 550 635 / 635 Balance -430 / -430 -615 / -615 Intake: IV Fluids 120 / 120 20 / 20 Mefoxin 2,000 MG In Water for 20 / 20 20 / 20 inj. (sterile) 20 ML @ 300 mls/ hr IVP Q8HR [facility] Rx#:[id number] Flagyl Premix 500 MG/100 ML 500 100 / 100 mg In 100 ml @ 100 mls/hr IVPB Q8H [facility] Rx#:[id number] Output: Urine 550 / 550 610 / 610 Wound Drainage Left Other: Stool Size Moderate Stool Consistency liquid Stool Color Green Black # Bowel Movements 1 Weight 136.4 kg Patient Weight 10/11/17 23:59 Weight 136.4 kg - General physical appearance well developed, well nourished, no distress - Eyes PERRL, normal ocular movement - ENT normal mucosa - Neck Neck exam: trachea midline - Respiratory normal expansion, normal respiratory effort, other (Course breath sounds heard bilaterally on the anterior and posterior lung younger) wheezing: bilateral (Expiratory wheezes bilaterally) - Cardiovascular Cardiovascular exam: Present: tachycardia, no murmurs/rubs/gallops - Abdomen Abdomen: Present: bowel sounds present, soft, non tender, distended (Mildly distended), wound (LLQ SANDRA drain with serousang drainage with some purulence noted) - Incision Incision: Present: clean and dry, intact. Absent: draining, erythema, purulent - Musculoskeletal other (physical deconditioning noted) - Psychiatric oriented to time, oriented to person, oriented to place - Labs 10/11/17 06:36 10/11/17 06:36 Diabetes panel 10/11/17 Range/Units 06:36 Sodium 137 (136-145) mEq/L Potassium 3.4 L (3.5-5.1) mEq/L Chloride 106 (98-107) mEq/L Carbon Dioxide 26 (23-29) mEq/L BUN 10 (6-20) mg/dL Creatinine 0.54 L (0.70-1.30) mg/dL Glucose 123 H (70-105) mg/dL Calcium 7.9 L (8.6-10.3) mg/dL Calcium panel 10/11/17 Range/Units 06:36 Calcium 7.9 L (8.6-10.3) mg/dL Pituitary panel 10/11/17 Range/Units 06:36 Sodium 137 (136-145) mEq/L Potassium 3.4 L (3.5-5.1) mEq/L Chloride 106 (98-107) mEq/L Carbon Dioxide 26 (23-29) mEq/L BUN 10 (6-20) mg/dL Creatinine 0.54 L (0.70-1.30) mg/dL Glucose 123 H (70-105) mg/dL Calcium 7.9 L (8.6-10.3) mg/dL Adrenal panel 10/11/17 Range/Units 06:36 Sodium 137 (136-145) mEq/L Potassium 3.4 L (3.5-5.1) mEq/L Chloride 106 (98-107) mEq/L Carbon Dioxide 26 (23-29) mEq/L BUN 10 (6-20) mg/dL Creatinine 0.54 L (0.70-1.30) mg/dL Glucose 123 H (70-105) mg/dL Calcium 7.9 L (8.6-10.3) mg/dL - VTE Documentation of Mechanical Device: Intermittent pneumatic compression device Consult Discharge Plan - Plan Instructions: Jerry-Velásquez Drain Care (DC), Colectomy (DC) Additional Instructions: General Surgical Discharge Instructions 1. No pushing, pulling, or lifting greater than 15 lbs for 4 weeks (depending upon procedure). 2. You may shower beginning today, but no tub baths, soaking, or swimming for 2 weeks. 3. You may resume driving when you are off narcotics and are safe to react in a car. 4. Take ibuprofen every 8 hours for discomfort. If this does not relieve discomfort, you may take the as needed Percocet. Take narcotics as directed. Do not take more narcotics then directed and do not share your narcotics with any other person. Do not drink alcohol while on narcotics. 5. Take stool softeners (Colace) or a water based laxative (Miralax) while taking narcotics. You may hold for loose stools. 6. Report any fevers greater than 100.5F, increase abdominal discomfort, drainage that looks like pus, increased redness or pain at the surgical site, or any vomiting. 7. Report any pain in the calves, shortness of breath, or rapid heartbeat. 8. Follow-up in the office as directed. 9. If you were prescribed antibiotics, do not stop them without talking to your provider. 10. Do not let the SANDRA drain dangle from your body. Safety pin the drain to your clothing when you're up and about. Suspended drain on a lanyard or other such necklace when you shower. 11. SANDRA wound care: remove dressing's. Shower daily with antibacterial soap. Replace split gauze dressing and tape to secure. Empty the drainage in your SANDRA at least daily and record this on the form provided to you. She drip the SANDRA drain line twice-daily. Drink at least 3 protein supplements every day. This is vital for ensuring you are getting enough nutrition so that your body can heal. Referrals: Meg Venegas CNP [Primary Care Provider] - 10/11/17 9:15 am Jayden Galvin MD [Partnered Physician] - 10/28/17 10:30 am (2 weeks) Radha Baker WORM FARMER [Advanced Practice Nurse] - 10/13/17 8:45 am Prescriptions: Amoxicillin/Clavulanate [Augmentin] 875 mg PO BIDWM #20 tablet Fluconazole [Diflucan] 100 mg PO DAILY #5 tablet OxyCODONE/APAP 5/325 [Percocet 5/325 MG] 1 tab PO Q6H PRN 7 Days #28 tablet PRN Reason: Postoperative pain Polyethylene Glycol 3350 [MiraLAX] 17 gm PO DAILY PRN #30 powd.pack PRN Reason: Constipation
[2017-10-11] MEDS: Ipratropium/Albuterol Neb 3 ML IH SCH ×4 (11:05→21:45)
[2017-10-11] MEDS: Chloraseptic Spray 177 ML BOTTLE MM PRN ×2 (12:42→15:28)
[2017-10-11] MEDS: Ringers Solution, Lactated 1,000 ML IVC SCH (15:28)
[2017-10-11] MEDS: Micafungin 100 MG in 0.9 % Sodium Chloride Mini Bag 100 ML IVPB SCH (18:35)
[2017-10-11] MEDS: Magic Mouthwash 10 ML UD Cup PO SCH (23:15)
[2017-10-12] MEDS: Ondansetron 4 MG/2 ML VIAL IVP PRN ×2 (01:56→05:57)
[2017-10-12] MEDS: *HR* LORazepam 2 MG/ML VIAL IVP PRN (02:21)
[2017-10-12] MEDS: Ipratropium/Albuterol Neb 3 ML IH SCH ×4 (03:04→21:32)
[2017-10-12] MEDS: *HR* Metoprolol 5 MG/5 ML VIAL IVP PRN (04:29)
[2017-10-12] MEDS: MetroNIDAZOLE 500 MG/100 ML 500 MG/100 ML BAG IVPB SCH (04:29)
[2017-10-12] MEDS: *HR* Heparin 5,000 UNIT/ML VIAL SQ SCH ×2 (05:33→18:22)
[2017-10-12] MEDS: Ringers Solution, Lactated 1,000 ML IVC SCH ×2 (05:34→12:19)
[2017-10-12 08:13] LABS: Basophils % 0.1 %; Hematocrit 26.1 % (37.5-50.1); Hemoglobin 8.2 g/dL (12.9-16.9); Immature Granulocytes % 0.7 % (0-4); Lymphocytes # 1.1 K/mcL (0.6-4.6); Lymphocytes % 4.7 %; Mean Corpuscular HGB Conc 31.4 g/dL (31.6-35.5); Mean Corpuscular Hemoglobin 23.3 pg (28.0-33.3); Mean Corpuscular Volume 74.1 fL (83.0-100.0); Mean Platelet Volume 11.2 fL (9.4-12.4); Monocytes # 1.3 K/mcL (0.0-1.3); Monocytes % 5.7 %; Neutrophils # 20.3 K/mcL (1.6-8.9); Nucleated Red Blood Cells 0.2 /100 WBC (0); Platelet Count 342 K/mcL (140-400); Red Blood Count 3.52 M/mcL (4.19-5.50); Red Cell Distribution Width 23.2 % (11.5-14.5); Segmented Neutrophils % 88.8 %
[2017-10-12 08:36] LABS: BUN/Creatinine Ratio 18 (6-26); Blood Urea Nitrogen 9 mg/dL (6-20); Calcium 7.8 mg/dL (8.6-10.3); Carbon Dioxide 25 mEq/L (23-29); Chloride 106 mEq/L (98-107); Glucose 130 mg/dL (70-105); Osmolality,Calculated 284 (280-300); Potassium 3.9 mEq/L (3.5-5.1); Sodium 137 mEq/L (136-145); eGFR For African Americans > 60 (> 60); eGFR For Non-African Americans > 60 (> 60)
[2017-10-12 08:47] LABS: Anisocytosis 2+ (Not Present)
[2017-10-12 08:48] LABS: Hypochromasia Present (Not Present); Microcytosis Present (Not Present); Platelet Estimate Normal (Normal); Polychromasia 1+ (Not Present)
[2017-10-12] MEDS ORDERED: *HR* Promethazine 25 MG/ML VIAL IVP ONE (08:48)
[2017-10-12] MEDS: Magic Mouthwash 10 ML UD Cup PO SCH ×3 (09:22→17:29)
[2017-10-12] MEDS: cefOXitin 2,000 MG in Water for inj. (sterile) 20 ML 20 ML IVP SCH ×2 (09:22→17:28)
[2017-10-12] MEDS: Pantoprazole 40 MG VIAL IVP SCH (09:22)
--- NOTE | 2017-10-12 09:44 | General Surgery Progress Note ---
Date of Encounter: 10/12/17 Time of Encounter: 09:15 - Assessment and Plan (1) Anastomotic leak of intestine Current Visit: Yes Status: Acute POD #13 Exploratory Laparotomy, Robotic Sigmoid colectomy with takedown of splenic flexure and a 29 mm EEA stapling with Dr. Ly Pathology- - Enterocolic anastomosis. - Serositis and fat necrosis involving colon, small intestine and omentum. 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 Check 2V abdominal x-ray now NG tube placement- LIWS Will likely need replacement of NG tube IV antibiotics- Cefoxitin Maintain SANDRA drains X 1 Supportive care and pain control Incentive spirometer every 1 hour while awake GI prophylaxis Out of bed to chair and ambulate hallways 3 times a day with assistance Repeat am labs- cbc, bmp (2) Sepsis Current Visit: Yes Status: Acute Initial blood cultures 10/06/17 growing anaerobic gram negative rods- identification pending (send out) Repeat blood cultures 10/07/17 negative at this time All further work-up has been negative Continue Cefoxitin WBC 12.3>22.9 (no bands) Temperature up to 101.9 last evening Patient tachycardic today Check CXR and 2 V abdominal x-ray Qualifiers: Sepsis type: sepsis due to unspecified organism Qualified Code(s): A41.9 - Sepsis, unspecified organism (3) Metastatic colon cancer to liver Current Visit: No Status: Acute Postoperative day #19 from a Robotic Right colectomy; liver biopsy and Aport placement with Dr. Ly Oncology following Pathology- poorly differentiated adenocarcinoma invading through pericolonic fat, margins negative, node positive 4 of 18; liver biopsy benign (4) Hypertension Current Visit: Yes Status: Chronic We will continue to monitor and treat as necessary Metoprolol ordered prn Qualifiers: Hypertension type: essential hypertension Qualified Code(s): I10 - Essential (primary) hypertension (5) Obesity Current Visit: Yes Status: Chronic Qualifiers: Obesity type: due to excess calories Obesity classification: unspecified obesity classification Serious obesity comorbidity presence: unspecified whether serious comorbidity present Qualified Code(s): E66.09 - Other obesity due to excess calories (6) Hypokalemia Current Visit: Yes Status: Resolved Resolved (7) DVT prophylaxis Current Visit: Yes Status: Acute Heparin 5000 units subcutaneous twice daily EPCDs to bilateral lower extremities for DVT prophylaxis Out of bed to chair and ambulating hallways 3 times a day with assistance Subjective Patient reports: voiding w/o difficulty, flatus, bowel movement, diarrhea, nausea, vomiting, fever (Tmax 101.9; Tcurrent 98.8), other (Patient feels bloated this morning; Complaint of cough) Objective Vital Signs - Last 8 Hours Temp Pulse Resp BP Pulse Ox 10/12/17 09:37 98.8 F 111 20 132/83 94 10/12/17 07:13 98.5 F 116 21 172/98 92 10/12/17 05:20 98.2 F 117 22 131/88 94 10/12/17 04:26 98.5 F 140 18 166/92 98 10/12/17 02:55 99.0 F 138 25 128/83 92 10/12/17 02:17 101.9 F H 117 22 133/83 96 Intake and Output 10/11/17 10/12/17 10/12/17 23:59 07:59 15:59 Intake Total 580 / 580 0 / 0 0 / 0 Output Total 375 / 375 620 / 620 430 / 430 Balance 205 / 205 -620 / -620 -430 / -430 Intake: IV Fluids 220 / 220 0 / 0 Lactated Ringers 1,000 ML @ 75 0 / 0 mls/hr IVC .[id number] [facility] Rx#: [id number] Mefoxin 2,000 MG In Water for 20 / 20 inj. (sterile) 20 ML @ 300 mls/ hr IVP Q8HR [facility] Rx#:[id number] Flagyl Premix 500 MG/100 ML 500 100 / 100 mg In 100 ml @ 100 mls/hr IVPB Q8H [facility] Rx#:[id number] Mycamine 100 MG In 0.9 % Sodium 100 / 100 Chloride (Mini-Bag +) 100 ML @ 100 mls/hr IVPB QPM [facility] Rx#: [id number] Oral 360 / 360 0 / 0 0 / 0 Output: Urine 375 / 375 500 / 500 Emesis 120 / 120 400 / 400 Wound Drainage 30 / 30 Left 30 / 30 Other: Meal Dinner NPO Percent of Meal Consumed 50% 0% Stool Size Moderate Stool Consistency loose liquid Stool Characteristics [place] Stool Color Green Black # Bowel Movements 1 - General physical appearance well developed, moderate distress, no pain, obese - Eyes normal ocular movement - ENT normal mucosa, atraumatic, normocephalic - Neck Neck exam: trachea midline - Respiratory normal respiratory effort, other (non-productive cough noted) rales: right - Cardiovascular Cardiovascular exam: Present: tachycardia - Abdomen Abdomen: Present: soft, non tender, distended, wound (SANDRA drain to bulb suction with serous drainage noted) - Incision Incision: Present: clean and dry, intact - Neurologic CN 2-12 grossly intact - Musculoskeletal other (physical deconditioning noted) - Psychiatric oriented to time, oriented to person, oriented to place, speech is normal, memory intact - Labs 10/12/17 08:04 10/12/17 08:04 Diabetes panel 10/12/17 Range/Units 08:04 Sodium 137 (136-145) mEq/L Potassium 3.9 (3.5-5.1) mEq/L Chloride 106 (98-107) mEq/L Carbon Dioxide 25 (23-29) mEq/L BUN 9 (6-20) mg/dL Creatinine 0.50 L (0.70-1.30) mg/dL Glucose 130 H (70-105) mg/dL Calcium 7.8 L (8.6-10.3) mg/dL Calcium panel 10/12/17 Range/Units 08:04 Calcium 7.8 L (8.6-10.3) mg/dL Pituitary panel 10/12/17 Range/Units 08:04 Sodium 137 (136-145) mEq/L Potassium 3.9 (3.5-5.1) mEq/L Chloride 106 (98-107) mEq/L Carbon Dioxide 25 (23-29) mEq/L BUN 9 (6-20) mg/dL Creatinine 0.50 L (0.70-1.30) mg/dL Glucose 130 H (70-105) mg/dL Calcium 7.8 L (8.6-10.3) mg/dL Adrenal panel 10/12/17 Range/Units 08:04 Sodium 137 (136-145) mEq/L Potassium 3.9 (3.5-5.1) mEq/L Chloride 106 (98-107) mEq/L Carbon Dioxide 25 (23-29) mEq/L BUN 9 (6-20) mg/dL Creatinine 0.50 L (0.70-1.30) mg/dL Glucose 130 H (70-105) mg/dL Calcium 7.8 L (8.6-10.3) mg/dL - VTE Documentation of Mechanical Device: Intermittent pneumatic compression device Consult Discharge Plan - Plan Instructions: Jerry-Velásquez Drain Care (DC), Colectomy (DC) Additional Instructions: General Surgical Discharge Instructions 1. No pushing, pulling, or lifting greater than 15 lbs for 4 weeks (depending upon procedure). 2. You may shower beginning today, but no tub baths, soaking, or swimming for 2 weeks. 3. You may resume driving when you are off narcotics and are safe to react in a car. 4. Take ibuprofen every 8 hours for discomfort. If this does not relieve discomfort, you may take the as needed Percocet. Take narcotics as directed. Do not take more narcotics then directed and do not share your narcotics with any other person. Do not drink alcohol while on narcotics. 5. Take stool softeners (Colace) or a water based laxative (Miralax) while taking narcotics. You may hold for loose stools. 6. Report any fevers greater than 100.5F, increase abdominal discomfort, drainage that looks like pus, increased redness or pain at the surgical site, or any vomiting. 7. Report any pain in the calves, shortness of breath, or rapid heartbeat. 8. Follow-up in the office as directed. 9. If you were prescribed antibiotics, do not stop them without talking to your provider. 10. Do not let the SANDRA drain dangle from your body. Safety pin the drain to your clothing when you're up and about. Suspended drain on a lanyard or other such necklace when you shower. 11. SANDRA wound care: remove dressing's. Shower daily with antibacterial soap. Replace split gauze dressing and tape to secure. Empty the drainage in your SANDRA at least daily and record this on the form provided to you. She drip the SANDRA drain line twice-daily. Drink at least 3 protein supplements every day. This is vital for ensuring you are getting enough nutrition so that your body can heal. Referrals: Meg Venegas CNP [Primary Care Provider] - 10/11/17 9:15 am Jayden Galvin MD [Partnered Physician] - 10/28/17 10:30 am (2 weeks) Radha Baker CNP [Advanced Practice Nurse] - 10/13/17 8:45 am Prescriptions: Amoxicillin/Clavulanate [Augmentin] 875 mg PO BIDWM #20 tablet Fluconazole [Diflucan] 100 mg PO DAILY #5 tablet OxyCODONE/APAP 5/325 [Percocet 5/325 MG] 1 tab PO Q6H PRN 7 Days #28 tablet PRN Reason: Postoperative pain Polyethylene Glycol 3350 [MiraLAX] 17 gm PO DAILY PRN #30 powd.pack PRN Reason: Constipation - Attending Attestation For this encounter, I have reviewed the SENIOR WEB ARCHITECT or PA documentation, treatment plan, and medical decision making; and I have had face to face time with this patient.
[2017-10-12] MEDS: Acetylcysteine 10% 2 ML INHSOL IH SCH ×3 (11:06→21:33)
[2017-10-12] MEDS ORDERED: Lidocaine Jelly 11 ml Syringe MM ONE (11:23)
[2017-10-12] MEDS ORDERED: D10% in Water 500 ML IVC PRN (11:42)
[2017-10-12] MEDS: Metoclopramide 10 MG/2 ML VIAL IVP SCH ×2 (12:19→17:28)
[2017-10-12] MEDS ORDERED: Chloraseptic Spray 177 ML BOTTLE MM PRN (14:04)
[2017-10-12] MEDS ORDERED: Clinimix E 5%-20% SOLUTION 2,000 ML with MVI, adult with vitamin K 10 ML IVC SCH (17:00)
[2017-10-13] MEDS: Metoclopramide 10 MG/2 ML VIAL IVP SCH ×5 (00:08→23:32)
[2017-10-13] MEDS: cefOXitin 2,000 MG in Water for inj. (sterile) 20 ML 20 ML IVP SCH ×4 (00:08→23:33)
[2017-10-13] MEDS: *HR* LORazepam 2 MG/ML VIAL IVP PRN ×2 (00:15→23:32)
[2017-10-13] MEDS: Acetylcysteine 10% 2 ML INHSOL IH SCH ×4 (04:07→22:59)
[2017-10-13] MEDS: Ipratropium/Albuterol Neb 3 ML IH SCH ×4 (04:07→22:58)
[2017-10-13 04:54] LABS: Basophils % 0.1 %; Eosinophils % 0.2 %; Hematocrit 22.8 % (37.5-50.1); Immature Granulocytes % 1.4 % (0-4); Lymphocytes # 1.6 K/mcL (0.6-4.6); Lymphocytes % 10.2 %; Mean Corpuscular HGB Conc 30.7 g/dL (31.6-35.5); Mean Corpuscular Hemoglobin 23.4 pg (28.0-33.3); Mean Corpuscular Volume 76.3 fL (83.0-100.0); Mean Platelet Volume 11.2 fL (9.4-12.4); Monocytes # 1.3 K/mcL (0.0-1.3); Monocytes % 8.2 %; Neutrophils # 12.6 K/mcL (1.6-8.9); Nucleated Red Blood Cells 0.3 /100 WBC (0); Platelet Count 347 K/mcL (140-400); Red Blood Count 2.99 M/mcL (4.19-5.50); Red Cell Distribution Width 22.8 % (11.5-14.5); Segmented Neutrophils % 79.9 %
[2017-10-13 05:12] LABS: Magnesium 2.1 mg/dL (1.6-2.6); Phosphorous 2.6 mg/dL (2.7-4.5)
[2017-10-13 05:15] LABS: BUN/Creatinine Ratio 18 (6-26); Blood Urea Nitrogen 9 mg/dL (6-20); Carbon Dioxide 27 mEq/L (23-29); Chloride 106 mEq/L (98-107); Glucose 128 mg/dL (70-105); Osmolality,Calculated 288 (280-300); Potassium 3.5 mEq/L (3.5-5.1); Sodium 139 mEq/L (136-145); eGFR For African Americans > 60 (> 60); eGFR For Non-African Americans > 60 (> 60)
[2017-10-13] MEDS: *HR* Heparin 5,000 UNIT/ML VIAL SQ SCH ×2 (06:37→17:57)
[2017-10-13] MEDS: Magic Mouthwash 10 ML UD Cup PO SCH ×3 (06:37→17:53)
[2017-10-13] MEDS: Pantoprazole 40 MG VIAL IVP SCH (09:40)
--- NOTE | 2017-10-13 11:31 | General Surgery Progress Note ---
Date of Encounter: 10/13/17 Time of Encounter: 08:30 - Assessment and Plan (1) Sepsis Current Visit: Yes Status: Acute White blood count is trending down and is 15.8 today. Yesterday WBC was 22.9. There are no bands. Patient is afebrile. No respiratory distress at this time. Initial blood cultures 10/06/17 -growing gram negative rods x 2- identification pending Repeat blood cultures 10/07/17 -negative at this time All further work-up has been negative Continue antibiotics- Cefoxitin Continue scheduled DuoNebs q6h May give patient IV Tylenol for fever Continue to monitor the patient closely. Qualifiers: Sepsis type: sepsis due to unspecified organism Qualified Code(s): A41.9 - Sepsis, unspecified organism (2) Anastomotic leak of intestine Current Visit: Yes Status: Acute POD #14 Exploratory Laparotomy with resection of ileocolic anastomosis and a side to side, functional end to end anastomosis. Pathology- - Enterocolic anastomosis. Serositis and fat necrosis involving colon, small intestine and omentum. Pathology from initial colon resection- poorly differentiated adenocarcinoma invading through pericolonic fat, margins negative, node positive 4 of 18; liver biopsy benign Plan: NPO Continue TPN Contineu NG tube placement- LIWS IV antibiotics- Cefoxitin Maintain SANDRA drains X 1 Supportive care and pain control Incentive spirometer every 1 hour while awake GI prophylaxis Out of bed to chair and ambulate hallways 3 times a day with assistance Repeat am labs- cbc, bmp (3) Metastatic colon cancer to liver Current Visit: No Status: Acute Postoperative day #20 from a Robotic Right colectomy; liver biopsy and Aport placement with Dr. Ly Oncology following Pathology- poorly differentiated adenocarcinoma invading through pericolonic fat, margins negative, node positive; liver biopsy benign (4) Obesity Current Visit: Yes Status: Chronic Qualifiers: Obesity type: due to excess calories Obesity classification: unspecified obesity classification Serious obesity comorbidity presence: unspecified whether serious comorbidity present Qualified Code(s): E66.09 - Other obesity due to excess calories (5) Hypertension Current Visit: Yes Status: Chronic Metoprolol ordered prn We will continue to monitor and treat as necessary. Qualifiers: Hypertension type: essential hypertension Qualified Code(s): I10 - Essential (primary) hypertension (6) DVT prophylaxis Current Visit: Yes Status: Acute Heparin 5000 units subcutaneous twice daily EPCDs to bilateral lower extremities for DVT prophylaxis Out of bed to chair and ambulating hallways 3 times a day with assistance Subjective Patient reports: no new complaints, feels better (The patient states he feels better than yesterday and has no complaints today. He denies any pain at this time. ), no flatus, no bowel movement, afebrile, other (The patient would like his NG tube remove as soon as possible. He denies any nausea, vomiting, weaknesses at this time.) Objective Vital Signs - Last 8 Hours Temp Pulse Resp BP Pulse Ox 10/13/17 11:14 98.0 F 94 18 157/100 95 10/13/17 07:19 98.2 F 97 20 154/96 94 10/13/17 04:23 98.9 F 89 15 157/82 95 Intake and Output 10/12/17 10/13/17 10/13/17 23:59 07:59 15:59 Intake Total 20 / 20 20 / 20 20 / 20 Output Total 875 / 875 1650 / 1650 Balance -855 / -855 -1630 / -1630 20 / 20 Intake: IV Fluids 20 / 20 20 / 20 20 / 20 Mefoxin 2,000 MG In Water for 20 / 20 20 / 20 20 / 20 inj. (sterile) 20 ML @ 300 mls/ hr IVP Q8HR [facility] Rx#:[id number] Oral 0 / 0 0 / 0 Output: Urine 0 / 0 1050 / 1050 Gastric Drainage 875 / 875 600 / 600 left 875 / 875 400 / 400 Other: Meal npo npo Blood Glucose* 134 138 130 - General physical appearance well developed, well nourished, no distress, no pain - Eyes PERRL, normal ocular movement - ENT normal mucosa - Neck Neck exam: trachea midline - Respiratory normal respiratory effort, other (Course breath sounds bilaterally in the anterior younger. Ronchi bilaterally but right more than left. NonProductive cough on exam) - Cardiovascular Cardiovascular exam: Present: RRR, no murmurs/rubs/gallops - Abdomen Abdomen: Present: bowel sounds present (Minimal bowel sounds present), soft, non tender, distended, wound (SANDRA drain to bulb suction with serous drainage noted). Absent: tender, guarding, rebound, rigid - Incision Incision: Present: clean and dry, intact. Absent: draining, purulent - Integumentary no rash, no abnormal pigmentation - Neurologic CN 2-12 grossly intact - Musculoskeletal other (physical deconditioning noted) - Psychiatric oriented to time, oriented to person, oriented to place - Labs 10/13/17 04:02 10/13/17 04:02 Diabetes panel 10/13/17 10/13/17 Range/Units 04:02 08:55 Sodium 139 (136-145) mEq/L Potassium 3.5 (3.5-5.1) mEq/L Chloride 106 (98-107) mEq/L Carbon Dioxide 27 (23-29) mEq/L BUN 9 (6-20) mg/dL Creatinine 0.49 L (0.70-1.30) mg/dL Glucose 128 H (70-105) mg/dL Calcium 8.0 L (8.6-10.3) mg/dL Triglycerides 91 (< 150) mg/dL Calcium panel 10/13/17 10/13/17 Range/Units 04:02 04:02 Calcium 8.0 L (8.6-10.3) mg/dL Phosphorus 2.6 L (2.7-4.5) mg/dL Pituitary panel 10/13/17 Range/Units 04:02 Sodium 139 (136-145) mEq/L Potassium 3.5 (3.5-5.1) mEq/L Chloride 106 (98-107) mEq/L Carbon Dioxide 27 (23-29) mEq/L BUN 9 (6-20) mg/dL Creatinine 0.49 L (0.70-1.30) mg/dL Glucose 128 H (70-105) mg/dL Calcium 8.0 L (8.6-10.3) mg/dL Adrenal panel 10/13/17 Range/Units 04:02 Sodium 139 (136-145) mEq/L Potassium 3.5 (3.5-5.1) mEq/L Chloride 106 (98-107) mEq/L Carbon Dioxide 27 (23-29) mEq/L BUN 9 (6-20) mg/dL Creatinine 0.49 L (0.70-1.30) mg/dL Glucose 128 H (70-105) mg/dL Calcium 8.0 L (8.6-10.3) mg/dL - VTE Documentation of Mechanical Device: Intermittent pneumatic compression device Consult Discharge Plan - Plan Instructions: Jerry-Velásquez Drain Care (DC), Colectomy (DC) Additional Instructions: General Surgical Discharge Instructions 1. No pushing, pulling, or lifting greater than 15 lbs for 4 weeks (depending upon procedure). 2. You may shower beginning today, but no tub baths, soaking, or swimming for 2 weeks. 3. You may resume driving when you are off narcotics and are safe to react in a car. 4. Take ibuprofen every 8 hours for discomfort. If this does not relieve discomfort, you may take the as needed Percocet. Take narcotics as directed. Do not take more narcotics then directed and do not share your narcotics with any other person. Do not drink alcohol while on narcotics. 5. Take stool softeners (Colace) or a water based laxative (Miralax) while taking narcotics. You may hold for loose stools. 6. Report any fevers greater than 100.5F, increase abdominal discomfort, drainage that looks like pus, increased redness or pain at the surgical site, or any vomiting. 7. Report any pain in the calves, shortness of breath, or rapid heartbeat. 8. Follow-up in the office as directed. 9. If you were prescribed antibiotics, do not stop them without talking to your provider. 10. Do not let the SANDRA drain dangle from your body. Safety pin the drain to your clothing when you're up and about. Suspended drain on a lanyard or other such necklace when you shower. 11. SANDRA wound care: remove dressing's. Shower daily with antibacterial soap. Replace split gauze dressing and tape to secure. Empty the drainage in your SANDRA at least daily and record this on the form provided to you. She drip the SANDRA drain line twice-daily. Drink at least 3 protein supplements every day. This is vital for ensuring you are getting enough nutrition so that your body can heal. Referrals: Meg Venegas CNP [Primary Care Provider] - 10/11/17 9:15 am Jayden Galvin MD [Partnered Physician] - 10/28/17 10:30 am (2 weeks) aRdha Baker CNP [Advanced Practice Nurse] - 10/13/17 8:45 am Prescriptions: Amoxicillin/Clavulanate [Augmentin] 875 mg PO BIDWM #20 tablet Fluconazole [Diflucan] 100 mg PO DAILY #5 tablet OxyCODONE/APAP 5/325 [Percocet 5/325 MG] 1 tab PO Q6H PRN 7 Days #28 tablet PRN Reason: Postoperative pain Polyethylene Glycol 3350 [MiraLAX] 17 gm PO DAILY PRN #30 powd.pack PRN Reason: Constipation
[2017-10-13] MEDS: Ondansetron 4 MG/2 ML VIAL IVP PRN ×2 (15:09→23:40)
[2017-10-13] MEDS ORDERED: Clinimix E 5%-20% SOLUTION 2,000 ML with MVI, adult with vitamin K 10 ML IVC SCH (17:00)
[2017-10-14] MEDS: Acetylcysteine 10% 2 ML INHSOL IH SCH ×4 (04:12→22:11)
[2017-10-14] MEDS: Ipratropium/Albuterol Neb 3 ML IH SCH ×4 (04:12→22:11)
[2017-10-14 05:19] LABS: BUN/Creatinine Ratio 19 (6-26); Blood Urea Nitrogen 10 mg/dL (6-20); Calcium 7.8 mg/dL (8.6-10.3); Carbon Dioxide 27 mEq/L (23-29); Chloride 107 mEq/L (98-107); Glucose 118 mg/dL (70-105); Osmolality,Calculated 290 (280-300); Phosphorous 3.2 mg/dL (2.7-4.5); Potassium 3.3 mEq/L (3.5-5.1); Sodium 140 mEq/L (136-145); eGFR For African Americans > 60 (> 60); eGFR For Non-African Americans > 60 (> 60)
[2017-10-14] MEDS: Metoclopramide 10 MG/2 ML VIAL IVP SCH ×2 (05:23→13:30)
[2017-10-14] MEDS: *HR* Heparin 5,000 UNIT/ML VIAL SQ SCH ×2 (05:24→17:50)
[2017-10-14 05:39] LABS: Basophils % 0.2 %; Eosinophils % 0.4 %; Hematocrit 21.7 % (37.5-50.1); Immature Granulocytes % 0.9 % (0-4); Lymphocytes # 1.4 K/mcL (0.6-4.6); Lymphocytes % 15.4 %; Mean Corpuscular HGB Conc 29.5 g/dL (31.6-35.5); Mean Corpuscular Hemoglobin 22.5 pg (28.0-33.3); Mean Corpuscular Volume 76.4 fL (83.0-100.0); Mean Platelet Volume 10.6 fL (9.4-12.4); Monocytes # 0.7 K/mcL (0.0-1.3); Monocytes % 7.7 %; Neutrophils # 6.7 K/mcL (1.6-8.9); Nucleated Red Blood Cells 0.4 /100 WBC (0); Platelet Count 392 K/mcL (140-400); Red Blood Count 2.84 M/mcL (4.19-5.50); Segmented Neutrophils % 75.4 %
[2017-10-14 05:48] LABS: Hemoglobin 6.4 g/dL (12.9-16.9)
[2017-10-14] MEDS: Magic Mouthwash 10 ML UD Cup PO SCH ×3 (07:48→17:33)
[2017-10-14] MEDS: Pantoprazole 40 MG VIAL IVP SCH ×2 (07:48→20:56)
[2017-10-14] MEDS: cefOXitin 2,000 MG in Water for inj. (sterile) 20 ML 20 ML IVP SCH ×3 (07:48→23:13)
[2017-10-14] MEDS: Ringers Solution, Lactated 1,000 ML IVC SCH ×4 (07:48→22:48)
[2017-10-14] MEDS: *HR* Metoprolol 5 MG/5 ML VIAL IVP PRN (08:24)
[2017-10-14] MEDS ORDERED: Potassium Chloride 40 MEQ, Lidocaine 1% 2 ML in D5% in Water 500 ML IVPB ONE (09:22)
--- NOTE | 2017-10-14 09:24 | General Surgery Progress Note ---
Date of Encounter: 10/14/17 Time of Encounter: 09:00 - Assessment and Plan (1) Anastomotic leak of intestine Current Visit: Yes Status: Acute POD #15 Exploratory Laparotomy, Robotic Sigmoid colectomy with takedown of splenic flexure and a 29 mm EEA stapling with Dr. Ly Pathology- - Enterocolic anastomosis. - Serositis and fat necrosis involving colon, small intestine and omentum. Pathology from initial colon resection- poorly differentiated adenocarcinoma invading through pericolonic fat, margins negative, node positive 4 of 18; liver biopsy benign NPO Continue TPN today- deputy assessor consult for start and management Continue NG tube to LIWS IV antibiotics- Cefoxitin Maintain SANDRA drains X 1 Supportive care and pain control Incentive spirometer every 1 hour while awake GI prophylaxis Out of bed to chair and ambulate hallways 3 times a day with assistance Repeat am labs- cbc, bmp, mg, phos (2) Sepsis Current Visit: Yes Status: Resolved Initial blood cultures 10/06/17 growing anaerobic gram negative rods- identification pending (send out) Repeat blood cultures 10/07/17 negative at this time All further work-up has been negative Continue Cefoxitin WBC 12.3>22.9>15.8>8.9 (no bands) Afebrile Qualifiers: Sepsis type: sepsis due to unspecified organism Qualified Code(s): A41.9 - Sepsis, unspecified organism (3) Metastatic colon cancer to liver Current Visit: No Status: Acute Postoperative day #21 from a Robotic Right colectomy; liver biopsy and Aport placement with Dr. Ly Oncology following Pathology- poorly differentiated adenocarcinoma invading through pericolonic fat, margins negative, node positive 4 of 18; liver biopsy benign (4) Hypertension Current Visit: Yes Status: Chronic We will continue to monitor and treat as necessary Metoprolol ordered prn Qualifiers: Hypertension type: essential hypertension Qualified Code(s): I10 - Essential (primary) hypertension (5) Obesity Current Visit: Yes Status: Chronic Qualifiers: Obesity type: due to excess calories Obesity classification: unspecified obesity classification Serious obesity comorbidity presence: unspecified whether serious comorbidity present Qualified Code(s): E66.09 - Other obesity due to excess calories (6) Hypokalemia Current Visit: Yes Status: Resolved Replace potassium Repeat am labs (7) Anemia Current Visit: Yes Status: Suspected Hgb- 8.2>7>6.4 Transfuse 2 units PRBC today Qualifiers: Anemia type: other cause Other causes of anemia: acute posthemorrhagic Qualified Code(s): D62 - Acute posthemorrhagic anemia (8) Gastric outlet obstruction Current Visit: Yes Status: Acute Plan for EGD today with Dr. Ly for further evaluation PPI changed to BID (9) DVT prophylaxis Current Visit: Yes Status: Acute Heparin 5000 units subcutaneous twice daily EPCDs to bilateral lower extremities for DVT prophylaxis Out of bed to chair and ambulating hallways 3 times a day with assistance Subjective Patient reports: no new complaints, voiding w/o difficulty, flatus, no bowel movement, afebrile, other (complaint of sore throat and swollen tongue secondary to NG tube; SBFT terminated last evening due to contrast not leaving the stomach after 3 hours.) Objective Vital Signs - Last 8 Hours Temp Pulse Resp BP Pulse Ox 10/14/17 06:56 98.8 F 96 20 167/89 93 10/14/17 04:05 98.5 F 94 18 150/86 91 Intake and Output 10/13/17 10/14/17 10/14/17 23:59 07:59 15:59 Intake Total 100 / 100 250 / 250 0 / 0 Output Total 1020 / 1020 950 / 950 435 / 435 Balance -920 / -920 -700 / -700 -435 / -435 Intake: IV Fluids 40 / 40 250 / 250 Lactated Ringers 1,000 ML @ 75 0 / 0 0 / 0 mls/hr IVC .[id number] [facility] Rx#: [id number] Mefoxin 2,000 MG In Water for 40 / 40 inj. (sterile) 20 ML @ 300 mls/ hr IVP Q8HR [facility] Rx#:[id number] Intralipid 20% 250 ML @ 21 mls/ 250 / 250 hr IVPB DAILY@1700 [facility] Rx#: [id number] Oral 60 / 60 0 / 0 0 / 0 Output: Urine 300 / 300 300 / 300 425 / 425 Gastric Drainage 700 / 700 650 / 650 left 0 / 0 Wound Drainage 20 / 20 10 / 10 Left 20 / 20 10 / 10 Other: Meal NPO for supper NPO Percent of Meal Consumed 0% Weight 136.14 kg Blood Glucose* 122 128 Patient Weight 10/14/17 23:59 Weight 136.14 kg - General physical appearance well developed, no distress, no pain, obese - Eyes normal ocular movement - ENT normal mucosa, atraumatic, normocephalic - Neck Neck exam: trachea midline - Respiratory normal respiratory effort, clear to auscultation, other (diminished bibasilar bases) - Cardiovascular Cardiovascular exam: Present: RRR - Abdomen Abdomen: Present: bowel sounds present (minimal, hypoactive), soft, non tender, wound (SANDRA drain to bulb suction with serous drainage noted; NG tube to LIWS with 1100ml noted since midnight) - Incision Incision: Present: clean and dry, intact - Neurologic CN 2-12 grossly intact - Musculoskeletal other (physical deconditioning) - Psychiatric oriented to time, oriented to person, oriented to place, speech is normal, memory intact - Labs 10/14/17 05:20 10/14/17 04:00 Diabetes panel 10/13/17 10/14/17 Range/Units 08:55 04:00 Sodium 140 (136-145) mEq/L Potassium 3.3 L (3.5-5.1) mEq/L Chloride 107 (98-107) mEq/L Carbon Dioxide 27 (23-29) mEq/L BUN 10 (6-20) mg/dL Creatinine 0.53 L (0.70-1.30) mg/dL Glucose 118 H (70-105) mg/dL Calcium 7.8 L (8.6-10.3) mg/dL Triglycerides 91 (< 150) mg/dL Calcium panel 10/14/17 Range/Units 04:00 Calcium 7.8 L (8.6-10.3) mg/dL Phosphorus 3.2 (2.7-4.5) mg/dL Pituitary panel 10/14/17 Range/Units 04:00 Sodium 140 (136-145) mEq/L Potassium 3.3 L (3.5-5.1) mEq/L Chloride 107 (98-107) mEq/L Carbon Dioxide 27 (23-29) mEq/L BUN 10 (6-20) mg/dL Creatinine 0.53 L (0.70-1.30) mg/dL Glucose 118 H (70-105) mg/dL Calcium 7.8 L (8.6-10.3) mg/dL Adrenal panel 10/14/17 Range/Units 04:00 Sodium 140 (136-145) mEq/L Potassium 3.3 L (3.5-5.1) mEq/L Chloride 107 (98-107) mEq/L Carbon Dioxide 27 (23-29) mEq/L BUN 10 (6-20) mg/dL Creatinine 0.53 L (0.70-1.30) mg/dL Glucose 118 H (70-105) mg/dL Calcium 7.8 L (8.6-10.3) mg/dL - VTE Documentation of Mechanical Device: Intermittent pneumatic compression device Consult Discharge Plan - Plan Instructions: Jerry-Velásquez Drain Care (DC), Colectomy (DC) Additional Instructions: General Surgical Discharge Instructions 1. No pushing, pulling, or lifting greater than 15 lbs for 4 weeks (depending upon procedure). 2. You may shower beginning today, but no tub baths, soaking, or swimming for 2 weeks. 3. You may resume driving when you are off narcotics and are safe to react in a car. 4. Take ibuprofen every 8 hours for discomfort. If this does not relieve discomfort, you may take the as needed Percocet. Take narcotics as directed. Do not take more narcotics then directed and do not share your narcotics with any other person. Do not drink alcohol while on narcotics. 5. Take stool softeners (Colace) or a water based laxative (Miralax) while taking narcotics. You may hold for loose stools. 6. Report any fevers greater than 100.5F, increase abdominal discomfort, drainage that looks like pus, increased redness or pain at the surgical site, or any vomiting. 7. Report any pain in the calves, shortness of breath, or rapid heartbeat. 8. Follow-up in the office as directed. 9. If you were prescribed antibiotics, do not stop them without talking to your provider. 10. Do not let the SANDRA drain dangle from your body. Safety pin the drain to your clothing when you're up and about. Suspended drain on a lanyard or other such necklace when you shower. 11. SANDRA wound care: remove dressing's. Shower daily with antibacterial soap. Replace split gauze dressing and tape to secure. Empty the drainage in your SANDRA at least daily and record this on the form provided to you. She drip the SANDRA drain line twice-daily. Drink at least 3 protein supplements every day. This is vital for ensuring you are getting enough nutrition so that your body can heal. Referrals: Meg Venegas CNP [Primary Care Provider] - 10/11/17 9:15 am Jayden Galvin MD [Partnered Physician] - 10/28/17 10:30 am (2 weeks) Radha Bkaer CNP [Advanced Practice Nurse] - 10/13/17 8:45 am Prescriptions: Amoxicillin/Clavulanate [Augmentin] 875 mg PO BIDWM #20 tablet Fluconazole [Diflucan] 100 mg PO DAILY #5 tablet OxyCODONE/APAP 5/325 [Percocet 5/325 MG] 1 tab PO Q6H PRN 7 Days #28 tablet PRN Reason: Postoperative pain Polyethylene Glycol 3350 [MiraLAX] 17 gm PO DAILY PRN #30 powd.pack PRN Reason: Constipation - Attending Attestation For this encounter, I have reviewed the BUILDING REPAIR MAINTENANCE SUPERVISOR or PA documentation, treatment plan, and medical decision making; and I have had face to face time with this patient.
[2017-10-14] MEDS ORDERED: 0.9 % Sodium Chloride 250 ML ONE (12:47)
[2017-10-14] MEDS ORDERED: *HR* Midazolam HCl 5 MG/5 ML VIAL IVP ONE ×3 (14:28→15:15)
[2017-10-14] MEDS ORDERED: *HR* FentaNYL (PF) 100 MCG/2 ML VIAL ONE (14:28)
[2017-10-14] MEDS ORDERED: *HR* FentaNYL (PF) 100 MCG/2 ML VIAL IVP ONE (14:46)
[2017-10-14] MEDS ORDERED: *HR* Midazolam HCl 2 MG/2 ML VIAL IVP ONE ×2 (14:46→14:51)
[2017-10-14] MEDS ORDERED: Tetracaine/Benzocaine/Butamben 200MG/SPRAY (100SPY/BOT) MM ONE (14:46)
[2017-10-14] MEDS ORDERED: Simethicone 40 MG/0.6 ML MLS IR ONE (14:46)
--- NOTE | 2017-10-14 14:47 | Pre-Sedation Evaluation ---
Pre-sedation evaluation - Pre-sedation checklist Date of procedure: 09/29/17 Procedure: Colonoscopy Recent Vitals: Last Vital Signs Temp 98.5 F 10/14/17 14:36 Pulse 90 10/14/17 14:43 Resp 16 10/14/17 14:43 BP 174/101 10/14/17 14:43 Pulse Ox 96 10/14/17 14:43 H&P (including ROS) documented in medical record: Yes Previous reaction to sedatives/anesthetics: No Dietary Status: NPO after Midnight Dentition: No loose teeth or bridges Possible difficult airway: No ASA Classification *see protocol: CLASS III-Severe systemic disease
[2017-10-14] MEDS ORDERED: MVI IVC SCH (17:00)
[2017-10-14] MEDS ORDERED: PARENTERAL AMINO ACID 10% IVC SCH (17:00)
[2017-10-14] MEDS ORDERED: CLINIMIX E IVC SCH (17:00)
[2017-10-14] MEDS ORDERED: [UNRECOGNIZED DRUG - OTHER] IVC SCH (17:00)
[2017-10-14] MEDS: *HR* LORazepam 2 MG/ML VIAL IVP PRN (21:01)
[2017-10-15] MEDS: *HR* Metoprolol 5 MG/5 ML VIAL IVP PRN (03:53)
[2017-10-15] MEDS: Ipratropium/Albuterol Neb 3 ML IH SCH ×4 (04:23→22:05)
[2017-10-15] MEDS: Acetylcysteine 10% 2 ML INHSOL IH SCH ×4 (04:23→22:05)
[2017-10-15 04:52] LABS: Basophils % 0.2 %; Eosinophils # 0.1 K/mcL (0.0-0.6); Eosinophils % 0.9 %; Hematocrit 25.4 % (37.5-50.1); Immature Granulocytes % 0.9 % (0-4); Lymphocytes # 1.4 K/mcL (0.6-4.6); Lymphocytes % 15.3 %; Mean Corpuscular HGB Conc 31.5 g/dL (31.6-35.5); Mean Corpuscular Hemoglobin 24.2 pg (28.0-33.3); Mean Corpuscular Volume 76.7 fL (83.0-100.0); Mean Platelet Volume 10.3 fL (9.4-12.4); Monocytes # 0.7 K/mcL (0.0-1.3); Monocytes % 7.4 %; Nucleated Red Blood Cells 0.3 /100 WBC (0); Platelet Count 462 K/mcL (140-400); Red Blood Count 3.31 M/mcL (4.19-5.50); Red Cell Distribution Width 21.6 % (11.5-14.5); Segmented Neutrophils % 75.3 %
[2017-10-15 05:06] LABS: BUN/Creatinine Ratio 16 (6-26); Blood Urea Nitrogen 8 mg/dL (6-20); Calcium 7.8 mg/dL (8.6-10.3); Carbon Dioxide 26 mEq/L (23-29); Chloride 106 mEq/L (98-107); Glucose 124 mg/dL (70-105); Osmolality,Calculated 284 (280-300); Phosphorous 2.9 mg/dL (2.7-4.5); Potassium 3.5 mEq/L (3.5-5.1); Sodium 137 mEq/L (136-145); eGFR For African Americans > 60 (> 60); eGFR For Non-African Americans > 60 (> 60)
[2017-10-15] MEDS: *HR* Heparin 5,000 UNIT/ML VIAL SQ SCH ×2 (05:48→17:06)
[2017-10-15] MEDS: Magic Mouthwash 10 ML UD Cup PO SCH ×3 (08:44→17:01)
[2017-10-15] MEDS: cefOXitin 2,000 MG in Water for inj. (sterile) 20 ML 20 ML IVP SCH ×3 (08:53→23:27)
[2017-10-15] MEDS: Pantoprazole 40 MG VIAL IVP SCH ×2 (08:54→20:37)
[2017-10-15] MEDS ORDERED: MVI IVC SCH (17:00)
[2017-10-15] MEDS ORDERED: AMINO ACIDS 10% IVC SCH (17:00)
[2017-10-15] MEDS ORDERED: [UNRECOGNIZED DRUG - OTHER] IVC SCH (17:00)
[2017-10-15] MEDS ORDERED: CLINIMIX E IVC SCH (17:00)
--- NOTE | 2017-10-15 18:01 | General Surgery Progress Note ---
<Loli Calvillo-Breanna - Last Filed: 10/15/17 17:59> Date of Encounter: 10/15/17 Time of Encounter: 16:30 - Assessment and Plan (1) Anastomotic leak of intestine Current Visit: Yes Status: Acute POD #16- Exploratory Laparotomy with resection of ileocolic anastomosis and a side to side, functional end to end anastomosis. Pathology- - Enterocolic anastomosis. Serositis and fat necrosis involving colon, small intestine and omentum. Pathology from initial colon resection- poorly differentiated adenocarcinoma invading through pericolonic fat, margins negative, node positive 4 of 18; liver biopsy benign Plan: NPO Continue TPN Continue NG tube placement- LIWS IV antibiotics- Cefoxitin Plan for repeat small bowel follow through on Tuesday. Will remove irish today. Maintain SANDRA drains X 1 Supportive care and pain control Incentive spirometer every 1 hour while awake GI prophylaxis Out of bed to chair and ambulate hallways 3 times a day with assistance Repeat am labs- cbc, bmp (2) Sepsis Current Visit: Yes Status: Resolved White blood count is trending down and is 15.8>>8.9>>9.3. There are no bands. Patient is afebrile. No respiratory distress at this time. Initial blood cultures 3 -growing gram negative rods x 2- identification pending Repeat blood cultures 18 -negative at this time All further work-up has been negative Continue antibiotics- Cefoxitin Continue scheduled DuoNebs q6h May give patient IV Tylenol for fever Continue to monitor the patient closely. Qualifiers: Sepsis type: sepsis due to unspecified organism Qualified Code(s): A41.9 - Sepsis, unspecified organism (3) Metastatic colon cancer to liver Current Visit: No Status: Acute Postoperative day #22 from a Robotic Right colectomy; liver biopsy and Aport placement with Dr. Ly Oncology following Pathology- poorly differentiated adenocarcinoma invading through pericolonic fat, margins negative, node positive; liver biopsy benign (4) Obesity Current Visit: Yes Status: Chronic Qualifiers: Obesity type: due to excess calories Obesity classification: unspecified obesity classification Serious obesity comorbidity presence: unspecified whether serious comorbidity present Qualified Code(s): E66.09 - Other obesity due to excess calories (5) Hypertension Current Visit: Yes Status: Chronic Metoprolol ordered prn We will continue to monitor and treat as necessary. Qualifiers: Hypertension type: essential hypertension Qualified Code(s): I10 - Essential (primary) hypertension (6) DVT prophylaxis Current Visit: Yes Status: Acute Heparin 5000 units subcutaneous twice daily EPCDs to bilateral lower extremities for DVT prophylaxis Out of bed to chair and ambulating hallways 3 times a day with assistance Subjective Patient reports: no new complaints, feels better, pain is less, voiding w/o difficulty, flatus, no bowel movement (Denies any bowel movements today but the patient admits a bowel movement yesterday. ), afebrile Objective Vital Signs - Last 8 Hours Temp Pulse Resp BP Pulse Ox 10/15/17 16:26 98.6 F 68 20 148/46 95 10/15/17 11:35 98.2 F 76 22 145/77 94 10/15/17 11:23 98.2 F 76 22 145/77 94 10/15/17 10:56 16 98 Intake and Output 10/15/17 10/15/17 10/15/17 07:59 15:59 23:59 Intake Total 270 / 270 20 / 20 Output Total 1125 / 1125 1800 / 1800 700 / 700 Balance -855 / -855 -1780 / -1780 -700 / -700 Intake: IV Fluids 270 / 270 20 / 20 Mefoxin 2,000 MG In Water for 20 / 20 20 / 20 inj. (sterile) 20 ML @ 300 mls/ hr IVP Q8HR [facility] Rx#:[id number] Intralipid 20% 250 ML @ 21 mls/ 250 / 250 hr IVPB DAILY@1700 [facility] Rx#: [id number] Oral 0 / 0 Output: Urine 975 / 975 1300 / 1300 700 / 700 Gastric Drainage 150 / 150 500 / 500 left 150 / 150 250 / 250 Wound Drainage 0 / 0 0 / 0 Left 0 / 0 0 / 0 Other: Meal npo Weight 133.4 kg Blood Glucose* 121 121 109 Patient Weight 10/15/17 23:59 Weight 133.4 kg - General physical appearance well developed, no distress, no pain, obese - Eyes PERRL, normal ocular movement - ENT dry mucosa - Neck Neck exam: trachea midline - Respiratory normal respiratory effort, other (Diminished breath sounds in the lower bilateral bases) - Cardiovascular Cardiovascular exam: Present: RRR, no murmurs/rubs/gallops - Abdomen Abdomen: Present: bowel sounds present (Minimal bowel sounds present. Hypoactive.), soft, non tender, wound (SANDRA drain to bulb suction with serous drainage noted; NG tube to LIWS ). Absent: distended - Incision Incision: Present: clean and dry, intact. Absent: draining, purulent - Integumentary no rash - Neurologic CN 2-12 grossly intact - Psychiatric oriented to time, oriented to person, oriented to place, speech is normal - Labs 10/15/17 04:02 10/15/17 04:02 Diabetes panel 10/15/17 Range/Units 04:02 Sodium 137 (136-145) mEq/L Potassium 3.5 (3.5-5.1) mEq/L Chloride 106 (98-107) mEq/L Carbon Dioxide 26 (23-29) mEq/L BUN 8 (6-20) mg/dL Creatinine 0.51 L (0.70-1.30) mg/dL Glucose 124 H (70-105) mg/dL Calcium 7.8 L (8.6-10.3) mg/dL Calcium panel 10/15/17 Range/Units 04:02 Calcium 7.8 L (8.6-10.3) mg/dL Phosphorus 2.9 (2.7-4.5) mg/dL Pituitary panel 10/15/17 Range/Units 04:02 Sodium 137 (136-145) mEq/L Potassium 3.5 (3.5-5.1) mEq/L Chloride 106 (98-107) mEq/L Carbon Dioxide 26 (23-29) mEq/L BUN 8 (6-20) mg/dL Creatinine 0.51 L (0.70-1.30) mg/dL Glucose 124 H (70-105) mg/dL Calcium 7.8 L (8.6-10.3) mg/dL Adrenal panel 10/15/17 Range/Units 04:02 Sodium 137 (136-145) mEq/L Potassium 3.5 (3.5-5.1) mEq/L Chloride 106 (98-107) mEq/L Carbon Dioxide 26 (23-29) mEq/L BUN 8 (6-20) mg/dL Creatinine 0.51 L (0.70-1.30) mg/dL Glucose 124 H (70-105) mg/dL Calcium 7.8 L (8.6-10.3) mg/dL - VTE Documentation of Mechanical Device: Intermittent pneumatic compression device Consult Discharge Plan - Plan Instructions: Jerry-Velásquez Drain Care (DC), Colectomy (DC) Additional Instructions: General Surgical Discharge Instructions 1. No pushing, pulling, or lifting greater than 15 lbs for 4 weeks (depending upon procedure). 2. You may shower beginning today, but no tub baths, soaking, or swimming for 2 weeks. 3. You may resume driving when you are off narcotics and are safe to react in a car. 4. Take ibuprofen every 8 hours for discomfort. If this does not relieve discomfort, you may take the as needed Percocet. Take narcotics as directed. Do not take more narcotics then directed and do not share your narcotics with any other person. Do not drink alcohol while on narcotics. 5. Take stool softeners (Colace) or a water based laxative (Miralax) while taking narcotics. You may hold for loose stools. 6. Report any fevers greater than 100.5F, increase abdominal discomfort, drainage that looks like pus, increased redness or pain at the surgical site, or any vomiting. 7. Report any pain in the calves, shortness of breath, or rapid heartbeat. 8. Follow-up in the office as directed. 9. If you were prescribed antibiotics, do not stop them without talking to your provider. 10. Do not let the SANDRA drain dangle from your body. Safety pin the drain to your clothing when you're up and about. Suspended drain on a lanyard or other such necklace when you shower. 11. SANDRA wound care: remove dressing's. Shower daily with antibacterial soap. Replace split gauze dressing and tape to secure. Empty the drainage in your SANDRA at least daily and record this on the form provided to you. She drip the SANDRA drain line twice-daily. Drink at least 3 protein supplements every day. This is vital for ensuring you are getting enough nutrition so that your body can heal. Referrals: Meg Venegas CNP [Primary Care Provider] - 11/01/17 8:30 am Jayden Galvin MD [Partnered Physician] - 10/28/17 10:30 am (2 weeks) Radha Baker CNP [Advanced Practice Nurse] - 10/21/17 9:20 am Prescriptions: Amoxicillin/Clavulanate [Augmentin] 875 mg PO BIDWM #20 tablet Fluconazole [Diflucan] 100 mg PO DAILY #5 tablet OxyCODONE/APAP 5/325 [Percocet 5/325 MG] 1 tab PO Q6H PRN 7 Days #28 tablet PRN Reason: Postoperative pain Polyethylene Glycol 3350 [MiraLAX] 17 gm PO DAILY PRN #30 powd.pack PRN Reason: Constipation <James Dunn M - Last Filed: 10/16/17 07:47> Date of Encounter: 10/15/17 Objective Vital Signs - Last 8 Hours Temp Pulse Resp BP Pulse Ox 10/16/17 07:28 98.6 F 92 22 160/105 96 10/16/17 04:30 97.9 F 89 24 149/104 96 Intake and Output 10/15/17 10/15/17 10/16/17 15:59 23:59 07:59 Intake Total 20 / 20 387 / 387 Output Total 1800 / 1800 2155 / 2155 1300 / 1300 Balance -1780 / -1780 -1768 / -1768 -1300 / -1300 Intake: IV Fluids 20 / 20 387 / 387 Lactated Ringers 1,000 ML @ 75 367 / 367 mls/hr IVC .[id number] [facility] Rx#: [id number] Mefoxin 2,000 MG In Water for 20 / 20 20 / 20 inj. (sterile) 20 ML @ 300 mls/ hr IVP Q8HR [facility] Rx#:[id number] Oral 0 / 0 Output: Urine 1300 / 1300 1775 / 1775 1000 / 1000 Gastric Drainage 500 / 500 350 / 350 300 / 300 left 250 / 250 350 / 350 300 / 300 Wound Drainage 0 / 0 30 / 30 0 / 0 Left 0 / 0 30 / 30 0 / 0 Other: Meal npo Stool Size Small Stool Consistency loose Stool Color Brown # Bowel Movement Diapers 1 Weight 132.6 kg Blood Glucose* 121 109 118 Patient Weight 10/16/17 23:59 Weight 132.6 kg - Labs 10/16/17 04:00 10/16/17 04:00 Diabetes panel 10/16/17 Range/Units 04:00 Sodium 137 (136-145) mEq/L Potassium 3.8 (3.5-5.1) mEq/L Chloride 105 (98-107) mEq/L Carbon Dioxide 25 (23-29) mEq/L BUN 9 (6-20) mg/dL Creatinine 0.55 L (0.70-1.30) mg/dL Glucose 99 (70-105) mg/dL Calcium 8.3 L (8.6-10.3) mg/dL Calcium panel 10/16/17 Range/Units 04:00 Calcium 8.3 L (8.6-10.3) mg/dL Phosphorus 3.6 (2.7-4.5) mg/dL Pituitary panel 10/16/17 Range/Units 04:00 Sodium 137 (136-145) mEq/L Potassium 3.8 (3.5-5.1) mEq/L Chloride 105 (98-107) mEq/L Carbon Dioxide 25 (23-29) mEq/L BUN 9 (6-20) mg/dL Creatinine 0.55 L (0.70-1.30) mg/dL Glucose 99 (70-105) mg/dL Calcium 8.3 L (8.6-10.3) mg/dL Adrenal panel 10/16/17 Range/Units 04:00 Sodium 137 (136-145) mEq/L Potassium 3.8 (3.5-5.1) mEq/L Chloride 105 (98-107) mEq/L Carbon Dioxide 25 (23-29) mEq/L BUN 9 (6-20) mg/dL Creatinine 0.55 L (0.70-1.30) mg/dL Glucose 99 (70-105) mg/dL Calcium 8.3 L (8.6-10.3) mg/dL - Attending Attestation I examined this patient and my medical decision-making was reviewed with the Resident Physician. I agree with the documented findings, disposition and treatment plan as described except to the extent set forth below. Review the above assessment and evaluation and agree with the above-mentioned plan.
[2017-10-15] MEDS: Ringers Solution, Lactated 1,000 ML IVC SCH (19:14)
[2017-10-15] MEDS: *HR* LORazepam 2 MG/ML VIAL IVP PRN (23:27)
[2017-10-16] MEDS: Acetylcysteine 10% 2 ML INHSOL IH SCH ×4 (03:32→22:52)
[2017-10-16] MEDS: Ipratropium/Albuterol Neb 3 ML IH SCH ×4 (03:32→22:52)
[2017-10-16] MEDS: *HR* Heparin 5,000 UNIT/ML VIAL SQ SCH ×2 (05:58→17:56)
[2017-10-16 06:58] LABS: BUN/Creatinine Ratio 16 (6-26); Blood Urea Nitrogen 9 mg/dL (6-20); Calcium 8.3 mg/dL (8.6-10.3); Carbon Dioxide 25 mEq/L (23-29); Chloride 105 mEq/L (98-107); Glucose 99 mg/dL (70-105); Magnesium 2.2 mg/dL (1.6-2.6); Osmolality,Calculated 283 (280-300); Phosphorous 3.6 mg/dL (2.7-4.5); Potassium 3.8 mEq/L (3.5-5.1); Sodium 137 mEq/L (136-145); eGFR For African Americans > 60 (> 60); eGFR For Non-African Americans > 60 (> 60)
[2017-10-16 07:16] LABS: Basophils % 0.2 %; Eosinophils # 0.1 K/mcL (0.0-0.6); Eosinophils % 1.1 %; Hematocrit 29.1 % (37.5-50.1); Hemoglobin 8.7 g/dL (12.9-16.9); Immature Granulocytes % 0.7 % (0-4); Lymphocytes # 1.6 K/mcL (0.6-4.6); Mean Corpuscular HGB Conc 29.9 g/dL (31.6-35.5); Mean Corpuscular Hemoglobin 23.3 pg (28.0-33.3); Mean Corpuscular Volume 77.8 fL (83.0-100.0); Mean Platelet Volume 10.4 fL (9.4-12.4); Monocytes # 0.9 K/mcL (0.0-1.3); Monocytes % 7.6 %; Neutrophils # 8.8 K/mcL (1.6-8.9); Platelet Count 509 K/mcL (140-400); Red Blood Count 3.74 M/mcL (4.19-5.50); Red Cell Distribution Width 22.1 % (11.5-14.5); Segmented Neutrophils % 76.4 %
[2017-10-16] MEDS: cefOXitin 2,000 MG in Water for inj. (sterile) 20 ML 20 ML IVP SCH ×3 (07:53→23:52)
[2017-10-16] MEDS: *HR* Metoprolol 5 MG/5 ML VIAL IVP PRN (07:54)
[2017-10-16] MEDS: Pantoprazole 40 MG VIAL IVP SCH ×2 (07:54→20:32)
[2017-10-16] MEDS: Magic Mouthwash 10 ML UD Cup PO SCH ×2 (12:02→17:53)
--- NOTE | 2017-10-16 12:41 | General Surgery Progress Note ---
<Loli Calvillo-Breanna - Last Filed: 10/16/17 16:37> Date of Encounter: 10/16/17 Time of Encounter: 10:00 - Assessment and Plan (1) Anastomotic leak of intestine Current Visit: Yes Status: Acute POD #17- Exploratory Laparotomy with resection of ileocolic anastomosis and a side to side, functional end to end anastomosis. Pathology- - Enterocolic anastomosis. Serositis and fat necrosis involving colon, small intestine and omentum. Pathology from initial colon resection- poorly differentiated adenocarcinoma invading through pericolonic fat, margins negative, node positive 4 of 18; liver biopsy benign Hgb is 8.7 today. Patient was transfused 2 units of pRBCs on 10/14/17. Plan: NPO-Ice chips are okay q6hrs Continue TPN Continue NG tube. Will attach NG to Minor bag. IV antibiotics- Cefoxitin Plan for repeat small bowel follow through on Tuesday. Maintain SANDRA drains X 1 Supportive care and pain control Incentive spirometer every 1 hour while awake GI prophylaxis Out of bed to chair and ambulate hallways 3 times a day with assistance Repeat am labs- cbc, bmp (2) Sepsis Current Visit: Yes Status: Resolved White blood count is trending upward. 8.9>9.9>11.5 today. There are no bands. Patient is afebrile. No respiratory distress at this time. Initial blood cultures 3 -growing gram negative rods x 2- identification pending Repeat blood cultures 10/07/17 -negative at this time All further work-up has been negative Continue antibiotics- Cefoxitin Continue scheduled DuoNebs q6h May give patient IV Tylenol for fever Continue to monitor the patient closely. Qualifiers: Sepsis type: sepsis due to unspecified organism Qualified Code(s): A41.9 - Sepsis, unspecified organism (3) Metastatic colon cancer to liver Current Visit: No Status: Acute Postoperative day #23 from a Robotic Right colectomy; liver biopsy and Aport placement with Dr. Ly Oncology following Pathology- poorly differentiated adenocarcinoma invading through pericolonic fat, margins negative, node positive; liver biopsy benign (4) Obesity Current Visit: Yes Status: Chronic Qualifiers: Obesity type: due to excess calories Obesity classification: unspecified obesity classification Serious obesity comorbidity presence: unspecified whether serious comorbidity present Qualified Code(s): E66.09 - Other obesity due to excess calories (5) Hypertension Current Visit: Yes Status: Chronic Metoprolol ordered prn. BP 144/102 We will continue to monitor and treat as necessary. Qualifiers: Hypertension type: essential hypertension Qualified Code(s): I10 - Essential (primary) hypertension (6) DVT prophylaxis Current Visit: Yes Status: Acute Heparin 5000 units subcutaneous twice daily EPCDs to bilateral lower extremities for DVT prophylaxis Out of bed to chair and ambulating hallways 3 times a day with assistance Subjective Patient reports: no new complaints, feels better, voiding w/o difficulty, flatus , bowel movement (Admits a bowel movement last night that he describes and nonbloody. He denies any bowel movement this morning.), afebrile, other (The patient denies any nausea and vomiting. The patient denies any abdominal pain at this time.) Objective Vital Signs - Last 8 Hours Temp Pulse Resp BP Pulse Ox 10/16/17 11:42 98.1 F 80 24 144/102 90 10/16/17 07:28 98.6 F 92 22 160/105 96 Intake and Output 10/15/17 10/16/17 10/16/17 23:59 07:59 15:59 Intake Total 387 / 387 20 / 20 Output Total 2155 / 2155 1300 / 1300 925 / 925 Balance -1768 / -1768 -1280 / -1280 -925 / -925 Intake: IV Fluids 387 / 387 20 / 20 Lactated Ringers 1,000 ML @ 75 367 / 367 mls/hr IVC .[id number] [facility] Rx#: [id number] Mefoxin 2,000 MG In Water for 20 / 20 20 / 20 inj. (sterile) 20 ML @ 300 mls/ hr IVP Q8HR [facility] Rx#:[id number] Output: Urine 1775 / 1775 1000 / 1000 925 / 925 Gastric Drainage 350 / 350 300 / 300 left 350 / 350 300 / 300 Wound Drainage 30 / 30 0 / 0 Left 30 / 30 0 / 0 Other: Meal npo Stool Size Small Stool Consistency loose Stool Color Brown # Bowel Movement Diapers 1 Weight 132.6 kg Blood Glucose* 109 118 114 Patient Weight 10/16/17 23:59 Weight 132.6 kg - General physical appearance well developed, no distress - Eyes PERRL, normal ocular movement - ENT normal mucosa - Neck Neck exam: trachea midline - Respiratory normal expansion, normal respiratory effort, other (Diminished breath sounds in the lower bilateral bases) - Cardiovascular Cardiovascular exam: Present: RRR, no murmurs/rubs/gallops - Abdomen Abdomen: Present: bowel sounds present, soft, non tender, surgical scars ( irish from the patient's midline incision removed yesterday. Incision well approximated with no drainage or signs of infection.), wound (P drain to bulb suction with serous drainage noted; NG tube to LIWS) - Incision Incision: Present: clean and dry, intact. Absent: draining, purulent - Integumentary no rash - Neurologic CN 2-12 grossly intact - Psychiatric oriented to time, oriented to person, oriented to place - Labs 10/16/17 04:00 10/16/17 04:00 Diabetes panel 10/16/17 Range/Units 04:00 Sodium 137 (136-145) mEq/L Potassium 3.8 (3.5-5.1) mEq/L Chloride 105 (98-107) mEq/L Carbon Dioxide 25 (23-29) mEq/L BUN 9 (6-20) mg/dL Creatinine 0.55 L (0.70-1.30) mg/dL Glucose 99 (70-105) mg/dL Calcium 8.3 L (8.6-10.3) mg/dL Calcium panel 10/16/17 Range/Units 04:00 Calcium 8.3 L (8.6-10.3) mg/dL Phosphorus 3.6 (2.7-4.5) mg/dL Pituitary panel 10/16/17 Range/Units 04:00 Sodium 137 (136-145) mEq/L Potassium 3.8 (3.5-5.1) mEq/L Chloride 105 (98-107) mEq/L Carbon Dioxide 25 (23-29) mEq/L BUN 9 (6-20) mg/dL Creatinine 0.55 L (0.70-1.30) mg/dL Glucose 99 (70-105) mg/dL Calcium 8.3 L (8.6-10.3) mg/dL Adrenal panel 10/16/17 Range/Units 04:00 Sodium 137 (136-145) mEq/L Potassium 3.8 (3.5-5.1) mEq/L Chloride 105 (98-107) mEq/L Carbon Dioxide 25 (23-29) mEq/L BUN 9 (6-20) mg/dL Creatinine 0.55 L (0.70-1.30) mg/dL Glucose 99 (70-105) mg/dL Calcium 8.3 L (8.6-10.3) mg/dL - VTE Documentation of Mechanical Device: Intermittent pneumatic compression device Consult Discharge Plan - Plan Instructions: Jerry-Velásquez Drain Care (DC), Colectomy (DC) Additional Instructions: General Surgical Discharge Instructions 1. No pushing, pulling, or lifting greater than 15 lbs for 4 weeks (depending upon procedure). 2. You may shower beginning today, but no tub baths, soaking, or swimming for 2 weeks. 3. You may resume driving when you are off narcotics and are safe to react in a car. 4. Take ibuprofen every 8 hours for discomfort. If this does not relieve discomfort, you may take the as needed Percocet. Take narcotics as directed. Do not take more narcotics then directed and do not share your narcotics with any other person. Do not drink alcohol while on narcotics. 5. Take stool softeners (Colace) or a water based laxative (Miralax) while taking narcotics. You may hold for loose stools. 6. Report any fevers greater than 100.5F, increase abdominal discomfort, drainage that looks like pus, increased redness or pain at the surgical site, or any vomiting. 7. Report any pain in the calves, shortness of breath, or rapid heartbeat. 8. Follow-up in the office as directed. 9. If you were prescribed antibiotics, do not stop them without talking to your provider. 10. Do not let the SANDRA drain dangle from your body. Safety pin the drain to your clothing when you're up and about. Suspended drain on a lanyard or other such necklace when you shower. 11. SANDRA wound care: remove dressing's. Shower daily with antibacterial soap. Replace split gauze dressing and tape to secure. Empty the drainage in your SANDRA at least daily and record this on the form provided to you. She drip the SANDRA drain line twice-daily. Drink at least 3 protein supplements every day. This is vital for ensuring you are getting enough nutrition so that your body can heal. Referrals: Meg Venegas, SENIOR SAFETY MANAGEMENT CONSULTANT [Primary Care Provider] - 11/01/17 8:30 am Jayden Galvin MD [Partnered Physician] - 10/28/17 10:30 am (2 weeks) Radha Baker CNP [Advanced Practice Nurse] - 10/21/17 9:20 am Prescriptions: Amoxicillin/Clavulanate [Augmentin] 875 mg PO BIDWM #20 tablet Fluconazole [Diflucan] 100 mg PO DAILY #5 tablet OxyCODONE/APAP 5/325 [Percocet 5/325 MG] 1 tab PO Q6H PRN 7 Days #28 tablet PRN Reason: Postoperative pain Polyethylene Glycol 3350 [MiraLAX] 17 gm PO DAILY PRN #30 powd.pack PRN Reason: Constipation <James Dunn - Last Filed: 10/17/17 01:10> Date of Encounter: 10/16/17 Objective Vital Signs - Last 8 Hours Temp Pulse Resp BP Pulse Ox 10/16/17 23:55 98.9 F 93 20 138/98 96 10/16/17 20:15 97 10/16/17 19:56 98.7 F 97 22 152/105 95 Intake and Output 10/16/17 10/16/17 10/17/17 15:59 23:59 07:59 Intake Total 20 / 20 20 / 20 Output Total 1490 / 1490 720 / 720 Balance -1470 / -1470 -700 / -700 -10 / -10 Intake: IV Fluids 20 / 20 20 / 20 Mefoxin 2,000 MG In Water for 20 / 20 20 / 20 inj. (sterile) 20 ML @ 300 mls/ hr IVP Q8HR [facility] Rx#:[id number] Output: Urine 1475 / 1475 600 / 600 Gastric Drainage 100 / 100 10 / 10 left 0 / 0 10 10 Wound Drainage 15 20 / 20 0 / 0 Left 15 / 15 20 / 20 0 / 0 Other: Blood Glucose* 118 107 - Labs 10/16/17 04:00 10/16/17 04:00 Diabetes panel 10/16/17 Range/Units 04:00 Sodium 137 (136-145) mEq/L Potassium 3.8 (3.5-5.1) mEq/L Chloride 105 (98-107) mEq/L Carbon Dioxide 25 (23-29) mEq/L BUN 9 (6-20) mg/dL Creatinine 0.55 L (0.70-1.30) mg/dL Glucose 99 (70-105) mg/dL Calcium 8.3 L (8.6-10.3) mg/dL Calcium panel 10/16/17 Range/Units 04:00 Calcium 8.3 L (8.6-10.3) mg/dL Phosphorus 3.6 (2.7-4.5) mg/dL Pituitary panel 10/16/17 Range/Units 04:00 Sodium 137 (136-145) mEq/L Potassium 3.8 (3.5-5.1) mEq/L Chloride 105 (98-107) mEq/L Carbon Dioxide 25 (23-29) mEq/L BUN 9 (6-20) mg/dL Creatinine 0.55 L (0.70-1.30) mg/dL Glucose 99 (70-105) mg/dL Calcium 8.3 L (8.6-10.3) mg/dL Adrenal panel 10/16/17 Range/Units 04:00 Sodium 137 (136-145) mEq/L Potassium 3.8 (3.5-5.1) mEq/L Chloride 105 (98-107) mEq/L Carbon Dioxide 25 (23-29) mEq/L BUN 9 (6-20) mg/dL Creatinine 0.55 L (0.70-1.30) mg/dL Glucose 99 (70-105) mg/dL Calcium 8.3 L (8.6-10.3) mg/dL - Attending Attestation I examined this patient and my medical decision-making was reviewed with the Resident Physician. I agree with the documented findings, disposition and treatment plan as described except to the extent set forth below. I reviewed the above assessment and evaluation agree with the above plan. Patient appears to be improving with some passage of flatus. NG tube drainage minimal. Will connect NG tube to Minor bag gravity drainage. Dr. Ly to return tomorrow we will inform him about the patient's overall status this past weekend.
[2017-10-16] MEDS ORDERED: [UNRECOGNIZED DRUG - OTHER] IVC SCH (17:00)
[2017-10-16] MEDS ORDERED: MVI IVC SCH (17:00)
[2017-10-16] MEDS ORDERED: AMINO ACIDS 10% IVC SCH (17:00)
[2017-10-16] MEDS ORDERED: CLINIMIX E IVC SCH (17:00)
[2017-10-16] MEDS: *HR* LORazepam 2 MG/ML VIAL IVP PRN (23:53)
[2017-10-17] MEDS: Acetylcysteine 10% 2 ML INHSOL IH SCH ×4 (04:59→21:56)
[2017-10-17] MEDS: Ipratropium/Albuterol Neb 3 ML IH SCH ×4 (04:59→21:56)
[2017-10-17 05:43] LABS: Basophils % 0.2 %; Eosinophils # 0.1 K/mcL (0.0-0.6); Eosinophils % 0.9 %; Hematocrit 31.4 % (37.5-50.1); Hemoglobin 9.4 g/dL (12.9-16.9); Immature Granulocytes % 0.4 % (0-4); Lymphocytes # 1.6 K/mcL (0.6-4.6); Lymphocytes % 13.4 %; Mean Corpuscular HGB Conc 29.9 g/dL (31.6-35.5); Mean Corpuscular Hemoglobin 23.3 pg (28.0-33.3); Mean Corpuscular Volume 77.7 fL (83.0-100.0); Mean Platelet Volume 9.8 fL (9.4-12.4); Monocytes # 0.9 K/mcL (0.0-1.3); Monocytes % 7.2 %; Neutrophils # 9.4 K/mcL (1.6-8.9); Platelet Count 515 K/mcL (140-400); Red Blood Count 4.04 M/mcL (4.19-5.50); Red Cell Distribution Width 21.7 % (11.5-14.5); Segmented Neutrophils % 77.9 %
[2017-10-17] MEDS: *HR* Heparin 5,000 UNIT/ML VIAL SQ SCH ×2 (05:53→17:12)
[2017-10-17 06:00] LABS: BUN/Creatinine Ratio 22 (6-26); Blood Urea Nitrogen 12 mg/dL (6-20); Calcium 8.5 mg/dL (8.6-10.3); Carbon Dioxide 23 mEq/L (23-29); Chloride 106 mEq/L (98-107); Glucose 98 mg/dL (70-105); Magnesium 2.1 mg/dL (1.6-2.6); Osmolality,Calculated 282 (280-300); Potassium 4.1 mEq/L (3.5-5.1); Sodium 136 mEq/L (136-145); eGFR For African Americans > 60 (> 60); eGFR For Non-African Americans > 60 (> 60)
[2017-10-17] MEDS: Magic Mouthwash 10 ML UD Cup PO SCH ×3 (07:50→17:07)
[2017-10-17] MEDS: *HR* Metoprolol 5 MG/5 ML VIAL IVP PRN (07:55)
[2017-10-17] MEDS: Pantoprazole 40 MG VIAL IVP SCH ×2 (07:55→19:44)
[2017-10-17] MEDS: cefOXitin 2,000 MG in Water for inj. (sterile) 20 ML 20 ML IVP SCH ×2 (07:55→17:06)
--- NOTE | 2017-10-17 10:51 | General Surgery Progress Note ---
Addendum entered and electronically signed by Winter Reyes CNP 10/17/17 14: 40: Spoke with Dr. Mckeon (radiologist) who states the SBFT is significantly improved since last exam and that the contrast remaining in the dependent portion of the fundus is likely related to inability to adequately mobilize patient. No evidence of obstruction. Reviewed with Dr. Ly who will evaluate the patient prior to any changes in plan plan of care. Pt, family, and bedside RN (Dominick) updated. Original Note: Date of Encounter: 10/17/17 Time of Encounter: 07:45 - Assessment and Plan (1) Anastomotic leak of intestine Current Visit: Yes Status: Acute Date of procedure: 09/29/17 Pre-op diagnosis: Perforated viscus Post-op diagnosis: same Procedure: Exploratory Laparotomy with resection of ileocolic anastomosis and a side to side, functional end to end anastomosis. Anesthesia: GETA Surgeon: Samson Ly POD #18 as above. Pathology- - Enterocolic anastomosis. Serositis and fat necrosis involving colon, small intestine and omentum. Pathology from initial colon resection- poorly differentiated adenocarcinoma invading through pericolonic fat, margins negative, node positive 4 of 18; liver biopsy benign Hgb 9.4 today s/p (6UPRBCs total this admission); No overt signs of bleeding noted. Patient noted feeling "really good." This am. He was scheduled to be discharged this afternoon. The RN obtained went in to obtain d/c vitals and noted the patient was shaking and had a temp of 101.9. The discharge was cancelled and patient worked up for fever. (see event note for further detail). S/P EGD on 10/14/2017 noting duodenitis with adherent clot and inflammation. Noted pt informed that plans would be for repeat SBFT on Tuesday (today) and p Plan: NPO except small amount of ice chips and hard tack candy NG to gravity SBFT with gastrograffin serial abdominal exams serial labs continue discomfort and supportive care continue GI and DVT prophylaxis Continue Picc and TPN Further recommendations pending (2) Sepsis Current Visit: Yes Status: Acute White blood count is trending upward. 9.3>>1.5>>12.5 today and is without bandemia. He is afebrile and no resp distress noted. Initial blood cultures 10/06/17 -growing gram negative rods x 2- identification pending Repeat blood cultures 10/07/17 -negative at this time All further work-up has been negative Continue antibiotics- Cefoxitin Continue scheduled DuoNebs q6h May give patient IV Tylenol for fever Continue to monitor the patient closely. Qualifiers: Sepsis type: sepsis due to unspecified organism Qualified Code(s): A41.9 - Sepsis, unspecified organism (3) Respiratory distress Current Visit: Yes Status: Acute No resp distress noted at this time. See a/p above (4) Alteration in bowel elimination due to postoperative ileus Current Visit: Yes Status: Acute See a/p above (5) Adenocarcinoma Current Visit: Yes Status: Acute Postoperative day #21 from a Robotic Right colectomy; liver biopsy and Aport placement with Dr. Ly Oncology following Pathology- poorly differentiated adenocarcinoma invading through pericolonic fat, margins negative, node positive ; liver biopsy benign (6) Gastric outlet obstruction Current Visit: Yes Status: Acute s/p EGD 10/14/2017: see s/p above Subjective Patient reports: no new complaints, feels better, still having pain, pain is less, voiding w/o difficulty, flatus, bowel movement, afebrile Narrative: Henry states he "feels better and is hungry." He reports having a BM this am and is intermittently passing gas. He denies nausea or vomiting. He denies worsening abdominal discomfort. Objective Vital Signs - Last 8 Hours Temp Pulse Resp BP Pulse Ox 10/17/17 07:29 98.0 F 102 20 163/99 96 10/17/17 04:06 98.6 F 96 22 147/102 97 Intake and Output 10/16/17 10/17/17 10/17/17 23:59 07:59 15:59 Intake Total 20 / 20 20 / 20 Output Total 720 / 720 1035 / 1035 280 / 280 Balance -700 / -700 -1015 / -1015 -280 / -280 Intake: IV Fluids 20 / 20 20 / 20 Mefoxin 2,000 MG In Water for 20 / 20 20 / 20 inj. (sterile) 20 ML @ 300 mls/ hr IVP Q8HR [facility] Rx#:[id number] Output: Urine 600 / 600 1000 / 1000 280 / 280 Gastric Drainage 100 / 100 25 / 25 left 0 / 0 25 / 25 Wound Drainage 20 / 20 10 / 10 Left 20 / 20 10 / 10 Other: Meal Breakfast Percent of Meal Consumed 0% Weight 131.262 kg Blood Glucose* 107 126 Patient Weight 10/17/17 23:59 Weight 131.262 kg VITAL SIGNS: Reviewed, tachycardic (102 BPM) and hypertensive (163/99) but afebrile. See [facility] GENERAL: In no apparent distress. HEENT: Normocephalic, atraumatic, pupils are equal and reactive, extraocular motions intact, oropharynx is pink and moist, there is no neck adenopathy or JVD noted. NG noted and secured. CHEST/RESPIRATORY: The thorax is free from signs of trauma. Lung sounds: clear to auscultation, Decreased respiratory effort CARDIAC: tachycardic rate and rhythm. Normal S1 and S2, without murmurs, gallops , or rubs. VASCULAR: No Edema. 2+ peripheral pulses. ABDOMEN: soft, distended, hypoactive bowel sounds INCISION: Surgical incision is clean, dry, and intact. There are no signs of cellulitis or infection noted. WOUNDS/DRAINS: SANDRA site within normal limits and with small amount of SS drainage MUSCULOSKELETAL: Good range of motion of all major joints. Extremities without clubbing, cyanosis or edema. NEUROLOGIC EXAM: Alert and oriented x 3. Speech normal. Follows commands. PSYCHIATRIC: Mood normal. SKIN: No rash or lesions. - Labs 10/17/17 05:07 10/17/17 05:07 Diabetes panel 10/17/17 Range/Units 05:07 Sodium 136 (136-145) mEq/L Potassium 4.1 (3.5-5.1) mEq/L Chloride 106 (98-107) mEq/L Carbon Dioxide 23 (23-29) mEq/L BUN 12 (6-20) mg/dL Creatinine 0.55 L (0.70-1.30) mg/dL Glucose 98 (70-105) mg/dL Calcium 8.5 L (8.6-10.3) mg/dL Calcium panel 10/17/17 Range/Units 05:07 Calcium 8.5 L (8.6-10.3) mg/dL Phosphorus 4.0 (2.7-4.5) mg/dL Pituitary panel 10/17/17 Range/Units 05:07 Sodium 136 (136-145) mEq/L Potassium 4.1 (3.5-5.1) mEq/L Chloride 106 (98-107) mEq/L Carbon Dioxide 23 (23-29) mEq/L BUN 12 (6-20) mg/dL Creatinine 0.55 L (0.70-1.30) mg/dL Glucose 98 (70-105) mg/dL Calcium 8.5 L (8.6-10.3) mg/dL Adrenal panel 10/17/17 Range/Units 05:07 Sodium 136 (136-145) mEq/L Potassium 4.1 (3.5-5.1) mEq/L Chloride 106 (98-107) mEq/L Carbon Dioxide 23 (23-29) mEq/L BUN 12 (6-20) mg/dL Creatinine 0.55 L (0.70-1.30) mg/dL Glucose 98 (70-105) mg/dL Calcium 8.5 L (8.6-10.3) mg/dL - VTE Documentation of Mechanical Device: Intermittent pneumatic compression device Consult Discharge Plan - Plan Instructions: Jerry-Velásquez Drain Care (DC), Colectomy (DC) Additional Instructions: General Surgical Discharge Instructions 1. No pushing, pulling, or lifting greater than 15 lbs for 4 weeks (depending upon procedure). 2. You may shower beginning today, but no tub baths, soaking, or swimming for 2 weeks. 3. You may resume driving when you are off narcotics and are safe to react in a car. 4. Take ibuprofen every 8 hours for discomfort. If this does not relieve discomfort, you may take the as needed Percocet. Take narcotics as directed. Do not take more narcotics then directed and do not share your narcotics with any other person. Do not drink alcohol while on narcotics. 5. Take stool softeners (Colace) or a water based laxative (Miralax) while taking narcotics. You may hold for loose stools. 6. Report any fevers greater than 100.5F, increase abdominal discomfort, drainage that looks like pus, increased redness or pain at the surgical site, or any vomiting. 7. Report any pain in the calves, shortness of breath, or rapid heartbeat. 8. Follow-up in the office as directed. 9. If you were prescribed antibiotics, do not stop them without talking to your provider. 10. Do not let the SANDRA drain dangle from your body. Safety pin the drain to your clothing when you're up and about. Suspended drain on a lanyard or other such necklace when you shower. 11. SANDRA wound care: remove dressing's. Shower daily with antibacterial soap. Replace split gauze dressing and tape to secure. Empty the drainage in your SANDRA at least daily and record this on the form provided to you. She drip the SANDRA drain line twice-daily. Drink at least 3 protein supplements every day. This is vital for ensuring you are getting enough nutrition so that your body can heal. Referrals: Meg Venegas CNP [Primary Care Provider] - 11/01/17 8:30 am Jayden Galvin MD [Partnered Physician] - 10/28/17 10:30 am (2 weeks) Radha Baker CNP [Advanced Practice Nurse] - 10/21/17 9:20 am Prescriptions: Amoxicillin/Clavulanate [Augmentin] 875 mg PO BIDWM #20 tablet Fluconazole [Diflucan] 100 mg PO DAILY #5 tablet OxyCODONE/APAP 5/325 [Percocet 5/325 MG] 1 tab PO Q6H PRN 7 Days #28 tablet PRN Reason: Postoperative pain Polyethylene Glycol 3350 [MiraLAX] 17 gm PO DAILY PRN #30 powd.pack PRN Reason: Constipation
[2017-10-17] MEDS ORDERED: AMINO ACIDS 10% IVC SCH (17:00)
[2017-10-17] MEDS ORDERED: [UNRECOGNIZED DRUG - OTHER] IVC SCH (17:00)
[2017-10-17] MEDS ORDERED: CLINIMIX E IVC SCH (17:00)
[2017-10-17] MEDS ORDERED: MVI IVC SCH (17:00)
[2017-10-17] MEDS: Ondansetron 4 MG/2 ML VIAL IVP PRN (17:11)
[2017-10-18] MEDS: cefOXitin 2,000 MG in Water for inj. (sterile) 20 ML 20 ML IVP SCH ×3 (00:21→16:57)
[2017-10-18] MEDS: *HR* LORazepam 2 MG/ML VIAL IVP PRN (00:22)
[2017-10-18] MEDS: Acetylcysteine 10% 2 ML INHSOL IH SCH ×4 (04:11→21:09)
[2017-10-18] MEDS: Ipratropium/Albuterol Neb 3 ML IH SCH ×4 (04:11→21:08)
[2017-10-18] MEDS: *HR* Heparin 5,000 UNIT/ML VIAL SQ SCH ×2 (04:24→16:58)
[2017-10-18 05:23] LABS: BUN/Creatinine Ratio 27 (6-26); Basophils % 0.2 %; Blood Urea Nitrogen 15 mg/dL (6-20); Calcium 8.4 mg/dL (8.6-10.3); Carbon Dioxide 26 mEq/L (23-29); Chloride 105 mEq/L (98-107); Eosinophils # 0.2 K/mcL (0.0-0.6); Eosinophils % 1.4 %; Glucose 109 mg/dL (70-105); Hematocrit 30.9 % (37.5-50.1); Hemoglobin 9.3 g/dL (12.9-16.9); Immature Granulocytes % 0.5 % (0-4); Lymphocytes # 1.8 K/mcL (0.6-4.6); Lymphocytes % 14.3 %; Magnesium 2.1 mg/dL (1.6-2.6); Mean Corpuscular HGB Conc 30.1 g/dL (31.6-35.5); Mean Corpuscular Hemoglobin 23.8 pg (28.0-33.3); Monocytes # 1.1 K/mcL (0.0-1.3); Monocytes % 8.8 %; Neutrophils # 9.2 K/mcL (1.6-8.9); Osmolality,Calculated 279 (280-300); Phosphorous 3.7 mg/dL (2.7-4.5); Platelet Count 490 K/mcL (140-400); Potassium 4.1 mEq/L (3.5-5.1); Red Blood Count 3.91 M/mcL (4.19-5.50); Red Cell Distribution Width 21.3 % (11.5-14.5); Segmented Neutrophils % 74.8 %; Sodium 134 mEq/L (136-145); eGFR For African Americans > 60 (> 60); eGFR For Non-African Americans > 60 (> 60)
--- NOTE | 2017-10-18 10:03 | General Surgery Progress Note ---
Date of Encounter: 10/18/17 Time of Encounter: 09:00 - Assessment and Plan (1) Anastomotic leak of intestine Current Visit: Yes Status: Acute POD #19- Exploratory Laparotomy with resection of ileocolic anastomosis and a side to side, functional end to end anastomosis. Pathology- - Enterocolic anastomosis. Serositis and fat necrosis involving colon, small intestine and omentum. Pathology from initial colon resection- poorly differentiated adenocarcinoma invading through pericolonic fat, margins negative, node positive 4 of 18; liver biopsy benign Hgb is 9.3 today. Patient was transfused 2 units of pRBCs on 10/14/17. S/P EGD on 10/14/2017 noting duodenitis with adherent clot and inflammation. s/p SBFT on 10/17/17. Per note, SBFT is significantly improved since last exam and that the contrast remaining in the dependent portion of the fundus is likely related to inability to adequately mobilize patient. No evidence of obstruction. NOTE: OPEN SOAPER TENDER entered "He was scheduled to be discharged this afternoon. The RN obtained went in to obtain d/c vitals and noted the patient was shaking and had a temp of 101.9. The discharge was cancelled and patient worked up for fever. ( see event note for further detail)." in her previous note. This portion of OPEN SOAPER TENDER note was entered in error. Please disregard it. Plan: Advance to full liquid diet Continue TPN IV antibiotics- Cefoxitin Order XR of abdomen to follow up on postoperative ileus Maintain SANDRA drains X 1 Supportive care and pain control Incentive spirometer every 1 hour while awake GI prophylaxis Out of bed to chair and ambulate hallways 3 times a day with assistance Repeat am labs- cbc, bmp (2) Sepsis Current Visit: Yes Status: Acute White blood count is trending upward. 8.9>9.9>11.5>12.1>12.3 today. There are no bands. Patient is afebrile. No respiratory distress at this time. Initial blood cultures 10/06/17 -growing gram negative rods x 2- identification pending Repeat blood cultures 10/07/17 -negative at this time All further work-up has been negative Continue scheduled DUOnebs Continue antibiotics- Cefoxitin May give patient IV Tylenol for fever Continue to monitor the patient closely. Qualifiers: Sepsis type: sepsis due to unspecified organism Qualified Code(s): A41.9 - Sepsis, unspecified organism (3) Metastatic colon cancer to liver Current Visit: No Status: Acute Postoperative day #25 from a Robotic Right colectomy; liver biopsy and Aport placement with Dr. Ly Oncology following Pathology- poorly differentiated adenocarcinoma invading through pericolonic fat, margins negative, node positive; liver biopsy benign (4) Obesity Current Visit: Yes Status: Chronic Qualifiers: Obesity type: due to excess calories Obesity classification: unspecified obesity classification Serious obesity comorbidity presence: unspecified whether serious comorbidity present Qualified Code(s): E66.09 - Other obesity due to excess calories (5) Hypertension Current Visit: Yes Status: Chronic Metoprolol ordered prn. We will continue to monitor and treat as necessary. Qualifiers: Hypertension type: essential hypertension Qualified Code(s): I10 - Essential (primary) hypertension (6) DVT prophylaxis Current Visit: Yes Status: Acute Heparin 5000 units subcutaneous twice daily EPCDs to bilateral lower extremities for DVT prophylaxis Out of bed to chair and ambulating hallways 3 times a day with assistance Subjective Patient reports: no new complaints, feels better, tolerating liquids well ( Patient admits tolerating his liquid diet without any nausea, vomiting, or any difficulty. Patient admits increase in his appetite and would like a regular diet as soon as possible.), voiding w/o difficulty, flatus, bowel movement ( Patient admits bowel movements that he describes as liquid and nonbloody.), afebrile Objective Vital Signs - Last 8 Hours Temp Pulse Resp BP Pulse Ox 10/18/17 08:50 96 20 140/106 10/18/17 08:47 96 10/18/17 04:54 97.6 F 98 23 133/100 95 Intake and Output 10/17/17 10/18/17 10/18/17 23:59 07:59 15:59 Intake Total 2219 / 2220 Output Total 400 / 400 302 / 302 425 / 425 Balance 1820 / 1820 -302 / -302 -425 / -425 Intake: IV Fluids 2220 / 0 Clinimix E 5%-20% SOLUTION 2, 0 / 2199 000 ML Trophamine 10% 400 ML @ 100 mls/hr IVC .Q24H HERNESTO with M .v.i. Adult 10 ml Rx#: [id number] Mefoxin 2,000 MG In Water for 20 / 20 inj. (sterile) 20 ML @ 300 mls/ hr IVP Q8HR [facility] Rx#:[id number] Output: Urine 400 / 400 300 / 300 425 / 425 Wound Drainage 0 / 0 2 / 2 Left 0 / 0 2 / 2 Other: Meal Dinner Percent of Meal Consumed 0% Weight 130.3 kg Blood Glucose* 114 121 Patient Weight 10/18/17 23:59 Weight 130.3 kg - General physical appearance well developed, no distress, no pain - Eyes PERRL, normal ocular movement - ENT normal mucosa - Neck Neck exam: trachea midline - Respiratory normal expansion, normal respiratory effort wheezing: right (Expiratory wheezes on the right anterior field) - Cardiovascular Cardiovascular exam: Present: RRR, no murmurs/rubs/gallops - Abdomen Abdomen: Present: bowel sounds present (Hyperactive bowel sounds in all 4 quadrants.), soft, non tender, distended (Mildly distended but is significantly improved), surgical scars (Surgical incision is well-healed.), wound (SANDRA drain in the left lower quadrant with serosanguious drainage noted. No prudulent drainage). Absent: guarding, rebound, rigid - Incision Incision: Present: clean and dry, intact. Absent: draining, erythema, purulent - Integumentary no rash - Neurologic CN 2-12 grossly intact - Psychiatric oriented to time, oriented to person, oriented to place, speech is normal - Labs 10/18/17 04:00 10/18/17 04:00 Diabetes panel 10/18/17 Range/Units 04:00 Sodium 134 L (136-145) mEq/L Potassium 4.1 (3.5-5.1) mEq/L Chloride 105 (98-107) mEq/L Carbon Dioxide 26 (23-29) mEq/L BUN 15 (6-20) mg/dL Creatinine 0.55 L (0.70-1.30) mg/dL Glucose 109 H (70-105) mg/dL Calcium 8.4 L (8.6-10.3) mg/dL Calcium panel 10/18/17 Range/Units 04:00 Calcium 8.4 L (8.6-10.3) mg/dL Phosphorus 3.7 (2.7-4.5) mg/dL Pituitary panel 10/18/17 Range/Units 04:00 Sodium 134 L (136-145) mEq/L Potassium 4.1 (3.5-5.1) mEq/L Chloride 105 (98-107) mEq/L Carbon Dioxide 26 (23-29) mEq/L BUN 15 (6-20) mg/dL Creatinine 0.55 L (0.70-1.30) mg/dL Glucose 109 H (70-105) mg/dL Calcium 8.4 L (8.6-10.3) mg/dL Adrenal panel 10/18/17 Range/Units 04:00 Sodium 134 L (136-145) mEq/L Potassium 4.1 (3.5-5.1) mEq/L Chloride 105 (98-107) mEq/L Carbon Dioxide 26 (23-29) mEq/L BUN 15 (6-20) mg/dL Creatinine 0.55 L (0.70-1.30) mg/dL Glucose 109 H (70-105) mg/dL Calcium 8.4 L (8.6-10.3) mg/dL - VTE Documentation of Mechanical Device: Intermittent pneumatic compression device Consult Discharge Plan - Plan Instructions: Jerry-Velásquez Drain Care (DC), Colectomy (DC) Additional Instructions: General Surgical Discharge Instructions 1. No pushing, pulling, or lifting greater than 15 lbs for 4 weeks (depending upon procedure). 2. You may shower beginning today, but no tub baths, soaking, or swimming for 2 weeks. 3. You may resume driving when you are off narcotics and are safe to react in a car. 4. Take ibuprofen every 8 hours for discomfort. If this does not relieve discomfort, you may take the as needed Percocet. Take narcotics as directed. Do not take more narcotics then directed and do not share your narcotics with any other person. Do not drink alcohol while on narcotics. 5. Take stool softeners (Colace) or a water based laxative (Miralax) while taking narcotics. You may hold for loose stools. 6. Report any fevers greater than 100.5F, increase abdominal discomfort, drainage that looks like pus, increased redness or pain at the surgical site, or any vomiting. 7. Report any pain in the calves, shortness of breath, or rapid heartbeat. 8. Follow-up in the office as directed. 9. If you were prescribed antibiotics, do not stop them without talking to your provider. 10. Do not let the SANDRA drain dangle from your body. Safety pin the drain to your clothing when you're up and about. Suspended drain on a lanyard or other such necklace when you shower. 11. SANDRA wound care: remove dressing's. Shower daily with antibacterial soap. Replace split gauze dressing and tape to secure. Empty the drainage in your SANDRA at least daily and record this on the form provided to you. She drip the SANDRA drain line twice-daily. Drink at least 3 protein supplements every day. This is vital for ensuring you are getting enough nutrition so that your body can heal. Referrals: Meg Venegas CNP [Primary Care Provider] - 11/01/17 8:30 am Jayden Galvin MD [Partnered Physician] - 10/28/17 10:30 am (2 weeks) Radha Baker CNP [Advanced Practice Nurse] - 10/21/17 9:20 am Prescriptions: Amoxicillin/Clavulanate [Augmentin] 875 mg PO BIDWM #20 tablet Fluconazole [Diflucan] 100 mg PO DAILY #5 tablet OxyCODONE/APAP 5/325 [Percocet 5/325 MG] 1 tab PO Q6H PRN 7 Days #28 tablet PRN Reason: Postoperative pain Polyethylene Glycol 3350 [MiraLAX] 17 gm PO DAILY PRN #30 [email or web address] PRN Reason: Constipation
[2017-10-18] MEDS: Magic Mouthwash 10 ML UD Cup PO SCH ×3 (12:14→16:20)
[2017-10-18] MEDS: Pantoprazole 40 MG VIAL IVP SCH ×2 (12:24→21:00)
[2017-10-18] MEDS ORDERED: PARENTERAL AMINO ACID 10% IVC SCH ×2 (17:00)
[2017-10-18] MEDS ORDERED: AMINO ACIDS 10% IVC SCH (17:00)
[2017-10-18] MEDS ORDERED: CLINIMIX E IVC SCH ×3 (17:00)
[2017-10-18] MEDS ORDERED: [UNRECOGNIZED DRUG - OTHER] IVC SCH (17:00)
[2017-10-18] MEDS ORDERED: MVI IVC SCH ×3 (17:00)
[2017-10-18] MEDS ORDERED: [UNRECOGNIZED DRUG - OTHER] IVC SCH ×2 (17:00)
[2017-10-19] MEDS: cefOXitin 2,000 MG in Water for inj. (sterile) 20 ML 20 ML IVP SCH ×3 (00:07→15:53)
[2017-10-19] MEDS: Acetylcysteine 10% 2 ML INHSOL IH SCH ×2 (03:15→10:15)
[2017-10-19] MEDS: Ipratropium/Albuterol Neb 3 ML IH SCH ×2 (03:15→10:15)
[2017-10-19] MEDS: *HR* Heparin 5,000 UNIT/ML VIAL SQ SCH (04:07)
[2017-10-19 04:28] LABS: Basophils % 0.2 %; Eosinophils # 0.2 K/mcL (0.0-0.6); Eosinophils % 2.4 %; Hematocrit 31.4 % (37.5-50.1); Hemoglobin 9.5 g/dL (12.9-16.9); Immature Granulocytes % 0.6 % (0-4); Lymphocytes # 1.7 K/mcL (0.6-4.6); Lymphocytes % 18.3 %; Mean Corpuscular HGB Conc 30.3 g/dL (31.6-35.5); Mean Corpuscular Hemoglobin 23.7 pg (28.0-33.3); Mean Corpuscular Volume 78.3 fL (83.0-100.0); Mean Platelet Volume 9.6 fL (9.4-12.4); Monocytes # 0.9 K/mcL (0.0-1.3); Monocytes % 9.8 %; Neutrophils # 6.3 K/mcL (1.6-8.9); Platelet Count 460 K/mcL (140-400); Red Blood Count 4.01 M/mcL (4.19-5.50); Red Cell Distribution Width 21.2 % (11.5-14.5); Segmented Neutrophils % 68.7 %
[2017-10-19 04:36] LABS: BUN/Creatinine Ratio 20 (6-26); Blood Urea Nitrogen 12 mg/dL (6-20); Calcium 8.6 mg/dL (8.6-10.3); Carbon Dioxide 26 mEq/L (23-29); Chloride 104 mEq/L (98-107); Glucose 102 mg/dL (70-105); Magnesium 2.1 mg/dL (1.6-2.6); Osmolality,Calculated 282 (280-300); Phosphorous 4.1 mg/dL (2.7-4.5); Potassium 4.1 mEq/L (3.5-5.1); Sodium 136 mEq/L (136-145); eGFR For African Americans > 60 (> 60); eGFR For Non-African Americans > 60 (> 60)
[2017-10-19] MEDS: Pantoprazole 40 MG VIAL IVP SCH (08:48)
[2017-10-19] MEDS: Magic Mouthwash 10 ML UD Cup PO SCH ×2 (08:48→11:24)
--- NOTE | 2017-10-19 10:12 | Discharge Summary ---
Orders not resulted at time of discharge: Pending orders 10/06/17 14:33 Culture,Blood [BC] Stat Culture,Blood,Additional [BC] Stat 10/20/17 04:00 CBC [Complete Blood Count] [HEME] AM 0400 Date of Encounter: 10/19/17 Time of Encounter: 10:00 - Discharge Diagnosis (1) Anastomotic leak of intestine Priority: Primary Status: Resolved (2) Sepsis Priority: Secondary Status: Resolved Qualifiers: Sepsis type: sepsis due to unspecified organism Qualified Code(s): A41.9 - Sepsis, unspecified organism (3) Metastatic colon cancer to liver Priority: Secondary Status: Acute (4) Hypertension Priority: Secondary Status: Chronic Qualifiers: Hypertension type: essential hypertension Qualified Code(s): I10 - Essential (primary) hypertension (5) Obesity Priority: Secondary Status: Chronic Qualifiers: Obesity type: due to excess calories Obesity classification: unspecified obesity classification Serious obesity comorbidity presence: unspecified whether serious comorbidity present Qualified Code(s): E66.09 - Other obesity due to excess calories (6) Hypokalemia Priority: Secondary Status: Resolved (7) Anemia Priority: Secondary Status: Suspected Qualifiers: Anemia type: other cause Other causes of anemia: acute posthemorrhagic Qualified Code(s): D62 - Acute posthemorrhagic anemia (8) Gastric outlet obstruction Priority: Secondary Status: Resolved General Surgery Exam Initial Vital Signs Temp Pulse Resp BP Pulse Ox 97.7 F 101 18 130/81 96 09/28/17 20:35 09/28/17 20:35 09/28/17 20:35 09/28/17 20:35 09/28/17 20:35 - General physical appearance well developed, no distress, no pain, obese - Eyes normal ocular movement - ENT normal mucosa, atraumatic, normocephalic - Neck trachea midline - Respiratory normal respiratory effort, clear to auscultation - Cardiovascular Cardiovascular exam: Present: RRR - Abdomen Abdomen general surgery: Present: bowel sounds present, soft, non tender, wound (SANDRA drain with small amount of serousang. drainage noted (discontinued today)) - Incision Incision: Present: clean and dry, intact - Integumentary Integumentary general surgery: Present: warm and dry - Neurologic Present: CN 2-12 grossly intact - Psychiatric Psychiatric general surgery: Present: appropriate, oriented to person, oriented to place, oriented to time, speech is normal, memory intact - Hospital Course Hospital course: Mr. Maria is a 42 year old male who is s/p a right colon resection and liver biopsy on 09/23/[address] Ly. His post-operative course was complicated by an anastomic leak and he was taken back to the operating room on 09/30/[address] Ly for Exploratory Laparotomy with resection of ileocolic anastomosis and a side to side, functional end to end anastomosis. The patients post- operative course was further complicated by a prolonged post-operative ileus, pneumonia, sepsis and a bleeding duodenal diverticulum. He was treated supportively with TPN while awaiting return of bowel function. He was treated with broad spectrum antibiotic therapy and antifungal therapy for sepsis and pneumonia. His bleeding duodenal diverticulum was treated with PPI therapy BID and carafate QID. The patient's diet has slowly been advanced as tolerated and he is currently tolerating a soft, chopped meat diet. His vital signs are stable and he has been afebrile. His WBC count has returned to normal. He is passing flatus and having regular bowel movements. He denies any post-operative pain at this time. His post-operative SANDRA drain was removed today. We will begin discharge planning to home and plan for outpatient follow-up in 1 week. Plan for follow-up with PCP and oncology in the next 10-14 days. - Time Spent with Patient Total time spent providing and/or coordinating discharge services: Greater than 30 minutes - Discharge Medications Prescriptions: Omeprazole [PriLOSEC] 20 mg PO BIDAC #60 cap Sucralfate [Carafate] 1 gm PO QIDAC #120 tablet Home Medications: Ferrous Sulfate [Iron] 325 mg PO DAILY 09/16/17 [History] Metoprolol Tartrate 100 mg PO BID 09/16/17 [History] Acetaminophen [Tylenol] 1,000 mg PO Q6HR PRN tablet 10/19/17 [Rx] Omeprazole [PriLOSEC] 20 mg PO BIDAC #60 cap 10/19/17 [Rx] Sucralfate [Carafate] 1 gm PO QIDAC #120 tablet 10/19/17 [Rx] Allergies/Adverse Reactions: 3 Allergy/AdvReac Type Severity Reaction Status Date / Time No Known Allergies Allergy Verified 09/28/17 20:35 Date of admission: 09/29/17 10:43 Primary care physician: Meg Venegas CNP Consults: 10/03/17 14:08 Consult to Respiratory Therapy [CONS] Routine Reason for Consult: Aggressive pulmonary toileting Time Notified: 14:08 Call Completed: No Discharging clinician: Samson Ly (Tyra Baker) Anticipated date of discharge: 10/19/17 Labs on day of discharge: Labs from last 24 hours 10/19/17 10/19/17 10/18/17 04:00 04:00 16:19 WBC 9.1 RBC 4.01 L Hgb 9.5 L Hct 31.4 L MCV 78.3 L MCH 23.7 L MCHC 30.3 L RDW 21.2 H Plt Count 460 H MPV 9.6 Immature Gran % 0.6 Seg Neutrophils % 68.7 Lymphocytes % 18.3 Monocytes % 9.8 Eosinophils % 2.4 Basophils % 0.2 Neutrophils # 6.3 Lymphocytes # 1.7 Monocytes # 0.9 Eosinophils # 0.2 Basophils # 0.0 Sodium 136 Potassium 4.1 Chloride 104 Carbon Dioxide 26 BUN 12 Creatinine 0.60 L Est GFR ( Amer) > 60 Est GFR (Non-Af Amer) > 60 BUN/Creatinine Ratio 20 Glucose 102 POC Glucose 133 H Calculated Osmolality 282 Calcium 8.6 Phosphorus 4.1 Magnesium 2.1 10/18/17 08:06 WBC RBC Hgb Hct MCV MCH MCHC RDW Plt Count MPV Immature Gran % Seg Neutrophils % Lymphocytes % Monocytes % Eosinophils % Basophils % Neutrophils # Lymphocytes # Monocytes # Eosinophils # Basophils # Sodium Potassium Chloride Carbon Dioxide BUN Creatinine Est GFR ( Amer) Est GFR (Non-Af Amer) BUN/Creatinine Ratio Glucose POC Glucose 121 H Calculated Osmolality Calcium Phosphorus Magnesium Preliminary micro results at discharge 10/06/17 14:33 Blood Culture - Preliminary Peripheral Venipuncture Anaerobic Gram Negative Aleksander 10/06/17 14:33 Blood Culture - Preliminary Peripheral Venipuncture Anaerobic Gram Negative Aleksander - Impressions ITS Impressions Abdomen/Pelvis CT 09/29/17 22:43 IMPRESSION: Postoperative changes of right colectomy with ileal colic anastomosis in the right lower quadrant. Small volume of pneumoperitoneum, free fluid, and mesenteric edema could be related to recent surgery. Mild diffuse distention of the small bowel without transition point noted. Findings are favored to be related to ileus. Gas within the left body wall and scrotum are likely related to recent surgery as well. Multiple hypodense hepatic lesions, concerning for metastatic disease. Bibasilar atelectasis. Findings were discussed with Dr. Henrik Lzi at 12:55 am on 09/29/2017. D/ / 09/29/2017 07:32:55 Flavio Horowitz MD / judith Interpreting Provider: Flavio Horowitz MD X-Ray 10/01/17 07:47 IMPRESSION: NG tube present with side-port and distal tip in the gastric fundus. D/ / 10/01/2017 09:34:51 Mauri Silva MD / Roz Maravilla Interpreting Provider: Mauri Silva MD Abdomen X-Ray 10/03/17 10:52 IMPRESSION: Air-filled dilated loops of bowel within the abdomen with a small amount of gas in the colon. Findings could reflect a postoperative ileus versus small-bowel obstruction. D/ / 10/03/2017 12:39:22 Mare Mckeon MD / judith Interpreting Provider: Mare Mckeon MD Chest X-Ray 10/06/17 13:58 IMPRESSION: Stable hypoaeration with mild lower lobe atelectasis. D/ / 10/06/2017 15:03:51 Carter Baptiste MD / Roz Maravilla Interpreting Provider: Carter Baptiste MD Abdomen/Pelvis CT 10/06/17 16:30 IMPRESSION: 1. Postsurgical changes in the abdomen and pelvis secondary to recent right hemicolectomy and revision. There is diffuse dilatation of large and small bowel, as well as marked distention of the stomach, which is largely fluid filled. Findings are likely secondary to a postoperative ileus. Obstruction is felt to be less likely. Consider nasogastric decompression. 2. Inflammatory stranding in the right upper quadrant, where there are two ill-defined air-fluid collections, which measure 4.2 cm and 3.8 cm. Per history, a drain was recently removed from this region. Findings are likely related to recurrent seromas, although, developing abscesses cannot be excluded. Continued CT follow-up is recommended. 3. Small postsurgical pneumoperitoneum. 4. Multifocal hepatic metastatic disease, stable from the previous exam. 5. No acute abnormality in the chest. 6. Soft tissue abdominal drain. No soft tissue abscess. Results of this examination were verbally discussed with Dr. Ly at 5:14 p.m. on 10/06/2017. D/ / 10/06/2017 17:24:26 Shawn Jordan MD / ronald Interpreting Provider: Shawn Jordan MD Chest CTA 10/06/17 16:30 IMPRESSION: 1. Postsurgical changes in the abdomen and pelvis secondary to recent right hemicolectomy and revision. There is diffuse dilatation of large and small bowel, as well as marked distention of the stomach, which is largely fluid filled. Findings are likely secondary to a postoperative ileus. Obstruction is felt to be less likely. Consider nasogastric decompression. 2. Inflammatory stranding in the right upper quadrant, where there are two ill-defined air-fluid collections, which measure 4.2 cm and 3.8 cm. Per history, a drain was recently removed from this region. Findings are likely related to recurrent seromas, although, developing abscesses cannot be excluded. Continued CT follow-up is recommended. 3. Small postsurgical pneumoperitoneum. 4. Multifocal hepatic metastatic disease, stable from the previous exam. 5. No acute abnormality in the chest. 6. Soft tissue abdominal drain. No soft tissue abscess. Results of this examination were verbally discussed with Dr. Ly at 5:14 p.m. on 10/06/2017. D/ / 10/06/2017 17:24:26 Shawn Jordan MD / ronald Interpreting Provider: Shawn Jordan MD Chest X-Ray 10/07/17 21:09 IMPRESSION: Stable chest. Bibasilar atelectasis. D/ / Mauri Cox MD / Mauri Cox MD Interpreting Provider: Mauri Cox MD Abdomen/Pelvis CT 10/07/17 23:33 IMPRESSION: Findings in the bowel likely represent resolving postoperative ileus. Partial obstruction is considered less likely. Small fluid collections in the right upper quadrant are not significantly changed compared to the prior study. There are several foci of gas within the collections and developing abscess still remains a possibility. No significant change in hepatic metastatic disease. D/ / Jonas Gardner MD / Jonas Gardner MD Interpreting Provider: Jonas Gardner MD Chest/Abdomen X-ray 10/09/17 12:24 IMPRESSION: No radiographic evidence of acute cardiopulmonary disease. Nonspecific bowel-gas pattern probably related adynamic ileus. D/ / Mele May / Mele May Interpreting Provider: Mele May Chest/Abdomen X-ray 10/10/17 06:00 IMPRESSION: No evidence for acute cardiopulmonary process. Stable bowel gas pattern with mild gaseous distention of both large and small bowel, likely reflecting an ileus. D/ / 10/10/2017 08:30:24 Zachary Pierce MD / [facility] Interpreting Provider: Zachary Pierce MD Chest/Abdomen X-ray 10/12/17 09:38 IMPRESSION: No evidence for acute cardiopulmonary process. Stable bowel gas pattern with gaseous distention of both large and small bowel, likely reflecting ileus. D/ / 10/12/2017 10:33:33 Zachary Pierce MD / ronald Interpreting Provider: Zachary Pierce MD X-Ray 10/12/17 14:08 IMPRESSION: 1. Enteric catheter in satisfactory position. 2. Gas-filled loops of small bowel and colon may represent ileus. Continued radiographic follow-up recommended. D/ / Elizabeth Hanson MD / Elizabeth Hanson MD Interpreting Provider: Elizabeth Hanson MD Small Bowel X-Ray 10/13/17 14:58 IMPRESSION: Findings most consistent with postoperative ileus. Contrast was diluted by fluid in the dilated large and small bowel loops. After consultation with the ordering physician, the examination was terminated. D/ / Juliocesar Hansen MD / Juliocesar Hansen MD Interpreting Provider: Juliocesar Hansen MD Small Bowel X-Ray 10/17/17 07:37 IMPRESSION: Mildly dilated proximal small bowel loops, measuring up to 4 cm, taper to a normal caliber distally. Small bowel dilatation has improved since the prior examination. Findings may reflect improving ileus or improving partial small bowel obstruction. D/ / 10/17/2017 10:31:13 Marivel Mckeon MD / ema Interpreting Provider: Marivel Mckeon MD Abdomen X-Ray 10/18/17 13:00 IMPRESSION: Several loops of dilated small bowel in the left mid abdomen. Enteric contrast otherwise progressed into the colon in keeping with history of postoperative ileus. D/ / 10/18/2017 12:10:50 Mare Mckeon MD / ronald Interpreting Provider: Mare Mckeon MD - Patient Status Disposition: Home, Self-Care Condition: Good Overall status at discharge: patient is back to baseline - Discharge Instructions Instructions: Jerry-Velásquez Drain Care (DC), Colectomy (DC) Follow Up With: Meg Venegas CNP [Primary Care Provider] - 11/01/17 8:30 am Jayden Galvin MD [Partnered Physician] - 10/28/17 10:30 am (2 weeks) Radha Baker CNP [Advanced Practice Nurse] - 10/24/17 2:45 pm (hospital follow-up) Additional Instructions: General Surgical Discharge Instructions 1. No pushing, pulling, or lifting greater than 15 lbs for 4 weeks 2. You may shower, but no tub baths for 2 weeks 3. You may resume driving when you are off narcotics and are safe to react in a car. 4. Report any fevers greater than 100.5F, increase abdominal discomfort, drainage that looks like pus, increased redness or pain at the surgical site, or any vomiting. 5. Report any pain in the calves, shortness of breath, or rapid heartbeat. 6. Follow-up in the office as directed. Drink at least 3 protein supplements every day. This is vital for ensuring you are getting enough nutrition so that your body can heal. - Diet and Activity Activity: other (See additional instructions above) Diet: other (soft, chopped meat diet (no breads for 2 weeks)) - Attending Attestation For this encounter, I have reviewed the WAREHOUSE ENGINEER or PA documentation, treatment plan, and medical decision making; and I have had face to face time with this patient.
[2017-10-19 11:14] VITALS: BP 141/99
== END 2017-10-19 16:58 | disposition home or self-care (01) | DRG 329 ==
LOC: 3BNU 20:34 → EMEROO 20:34 → 3BNU 09-29 01:48 → 3ANU 10-04 16:29 → ICNU 10-06 16:41 → 3ANU 10-10 12:33 → 2NNU 10-14 11:04
PROVIDERS: ADMIT Internal Medicine; ATTEND Surgery
PROC: ENDOEBX (2017-10-14 15:30)